=== PATIENT | male | born 1930 | race Caucasian/White ===

== ENCOUNTER 2018-06-23 22:34 | Inpatient (IN) | payer MEDICARE, MEDICAID ==
--- NOTE | 2018-06-23 23:07 | EDM.PDOC ---
ED HPI GENERAL MEDICAL PROBLEM - General Chief Complaint: Fever Stated Complaint: SICK Time Seen by Provider: 06/23/18 22:50 Source of Information: Reports: Patient, Longterm Records, RN Notes Reviewed - History of Present Illness INITIAL COMMENTS - FREE TEXT/NARRATIVE: pt comes from [place] with concerns for fever that started today, pt report some dry cough, denies any other associated sx or concerns. pt has bilateral heal ulcers and is on a course of cipro for ten days that ends today, pt report poor appetite and gen weakness. - Related Data Allergies Allergy/AdvReac Type Severity Reaction Status Date / Time No Known Allergies Allergy Verified 06/23/18 23:33 Home Meds: Home Meds glipiZIDE [Glipizide ER] 10 mg PO BID 03/20/14 [History] metFORMIN [Glucophage] 1,000 mg PO BID 03/20/14 [History] Simvastatin [Zocor] 40 mg PO BEDTIME 02/28/18 [History] Furosemide 60 mg PO DAILY 03/01/18 [History] Iron Polysaccharides Complex [Ferrex 150] 150 mg PO BID #60 cap 03/04/18 [Rx] Acetaminophen 650 mg PO Q4HR PRN 06/23/18 [History] Ascorbate Calcium [Vitamin C] 500 mg PO DAILY 06/23/18 [History] Bisacodyl [Dulcolax] 10 mg RECTAL DAILY PRN 06/23/18 [History] Carboxymethylcellulose Sodium [Refresh Tears] 30 ml EYEBOTH BID 06/23/18 [ History] Cyanocobalamin (Vitamin B-12) [Cyanocobalamin Injection] 1,000 mcg IJ ASDIRECTED 06/23/18 [History] Magnesium Hydroxide [Milk of Magnesia] 30 ml PO DAILY PRN 06/23/18 [History] Magnesium Oxide [Magnesium] 400 mg PO BID 06/23/18 [History] Multivitamin with Minerals [Multivitamins with Minerals] 1 each PO DAILY [History] Potassium Chloride [Klor-Con M20] 20 meq PO DAILY 06/23/18 [History] Sennosides/Docusate Sodium [Senna Plus Tablet] 1 tab PO BID 06/23/18 [History] Spironolactone [Aldactone] 25 mg PO DAILY 06/23/18 [History] Past Medical History HEENT History: Reports: Cataract Cardiovascular History: Reports: Heart Failure, High Cholesterol, Hypertension Other Cardiovascular History: had heartrate of 160 on admit to ER Respiratory History: Reports: SOB Gastrointestinal History: Reports: Colon Polyp Genitourinary History: Reports: None Musculoskeletal History: Reports: Osteoarthritis Neurological History: Reports: None Psychiatric History: Reports: None Endocrine/Metabolic History: Reports: Diabetes, Type II Hematologic History: Reports: B12 Deficiency Dermatologic History: Reports: None - Infectious Disease History Infectious Disease History: Reports: Chicken Pox, Measles - Past Surgical History GI Surgical History: Reports: Colonoscopy Social & Family History - Family History Family Medical History: Noncontributory - Caffeine Use Caffeine Use: Reports: Coffee ED ROS GENERAL - Review of Systems Review Of Systems: See Below Constitutional: Reports: Fever, Fatigue. Denies: Chills HEENT: Reports: No Symptoms Respiratory: Reports: Cough. Denies: Shortness of Breath, Wheezing, Sputum Cardiovascular: Reports: No Symptoms. Denies: Chest Pain GI/Abdominal: Reports: No Symptoms. Denies: Abdominal Pain, Diarrhea, Nausea, Vomiting : Reports: No Symptoms Musculoskeletal: Reports: No Symptoms Neurological: Reports: No Symptoms. Denies: Confusion ED EXAM, GENERAL - Physical Exam Exam: See Below Exam Limited By: No Limitations General Appearance: Alert Eye Exam: Bilateral Eye: Normal Inspection Nose: Normal Inspection, Normal Mucosa Throat/Mouth: Normal Inspection Head: Atraumatic, Normocephalic Respiratory/Chest: No Respiratory Distress Cardiovascular: Normal Peripheral Pulses GI/Abdominal: Normal Bowel Sounds, Soft Skin Exam: Other (pt has stage 2 pressure ulcers at his heals ) Course - Vital Signs Text/Narrative:: labs and CXR results were reviewed. pt has bilateral patchy infiltrates related to chronic CHF and possible pneumonitis. blood cultures were taken, will start pt on rocephin and zithromax. admit inpatient, monitor BS and watch for volume overloads . continue with current home meds including lasix and spironolactone. Last Recorded V/S: Last Vital Signs Temp 38.4 C H 06/23/18 22:35 Pulse 91 06/23/18 22:35 Resp 31 H 06/23/18 22:35 BP 102/57 L 06/23/18 22:35 Pulse Ox 94 L 06/23/18 22:35 - Orders/Labs/Meds Orders: Active Orders 24 hr Category Date Time Status Patient Status [ADT] Routine ADT 06/24/18 00:12 Ordered Blood Glucose Check, Bedside [RC] TIDMEALS Care 06/24/18 00:12 Ordered Oxygen Therapy Adult [Oxygen Therapy, ED] [RC] Care 06/23/18 22:34 Ordered ASDIRECTED Oxygen Therapy [RC] PRN Care 06/24/18 00:12 Ordered RT Aerosol Therapy [RC] ASDIRECTED Care 06/24/18 00:20 Ordered Up With Assistance [RC] ASDIRECTED Care 06/24/18 00:12 Ordered VTE/DVT Education [RC] Per Unit Routine Care 06/24/18 00:12 Ordered Vital Signs [RC] Q8H Care 06/24/18 00:12 Ordered Consistent Carbohydrate Diet [DIET] Diet 06/24/18 Breakfast Ordered Chest 1V Frontal [CR] Stat Exams 06/23/18 23:08 Ordered BASIC METABOLIC PANEL,BMP [CHEM] AM Lab 06/24/18 05:11 Ordered CBC W/O DIFF,HEMOGRAM [HEME] AM Lab 06/24/18 05:11 Ordered CULTURE BLOOD [BC] Urgent Lab 06/23/18 23:09 Ordered CULTURE BLOOD [BC] Urgent Lab 06/23/18 23:09 Ordered Acetaminophen [Tylenol] Med 06/24/18 00:12 Ordered 650 mg PO Q4H PRN Acetaminophen [Tylenol] Med 06/24/18 00:21 Ordered 650 mg PO Q4HR PRN Acetaminophen/HYDROcodone [Hanna 325-5 MG] Med 06/24/18 00:12 Ordered 1 tab PO Q4H PRN Albuterol/Ipratropium [DuoNeb 3.0-0.5 MG/3 ML] Med 06/24/18 00:12 Ordered 3 ml INH ONETIME PRN Azithromycin [Zithromax] 500 mg Med 06/24/18 00:30 Ordered Sodium Chloride 0.9% [Normal Saline] 250 ml IV Q24H Bisacodyl [Dulcolax] Med 06/24/18 00:21 Ordered 10 mg RECTAL DAILY PRN Docusate Sodium/Sennosides [Senna Plus] Med 06/24/18 09:00 Ordered 1 tab PO BID Enoxaparin [Lovenox] Med 06/24/18 00:15 Ordered 30 mg SUBCUT Q24H Furosemide [Lasix] Med 06/24/18 09:00 Ordered 60 mg PO DAILY Ondansetron [Zofran ODT] Med 06/24/18 00:12 Ordered 4 mg PO Q6H PRN Potassium Chloride [Klor-Con M20] Med 06/24/18 09:00 Ordered 20 meq PO DAILY Simvastatin [Zocor] Med 06/24/18 21:00 Ordered 40 mg PO BEDTIME Sodium Chloride 0.9% [Normal Saline] 1,000 ml Med 06/24/18 00:15 Ordered IV ASDIRECTED Spironolactone [Aldactone] Med 06/24/18 09:00 Ordered 25 mg PO DAILY Zolpidem [Ambien] Med 06/24/18 00:12 Ordered 5 mg PO BEDTIME PRN cefTRIAXone [Rocephin] 1 gm Med 06/24/18 00:30 Ordered Sodium Chloride 0.9% [Normal Saline] 50 ml IV Q24H glipiZIDE [Glucotrol XL] Med 06/24/18 09:00 Ordered 10 mg PO BID metFORMIN [Glucophage] Med 06/24/18 09:00 Ordered 1,000 mg PO BID Blood Culture x2 Reflex Set [OM.PC] Urgent Oth 06/23/18 23:09 Ordered Resuscitation Status Routine Resus Stat 06/24/18 00:12 Ordered Medication Orders Acetaminophen (Tylenol) 650 mg PO Q4H PRN PRN Reason: Pain (Mild 1-3)/fever Acetaminophen (Tylenol) 650 mg PO Q4HR PRN PRN Reason: Pain/Fever Hydrocodone Bitart/Acetaminophen (Hanna 325-5 Mg) 1 tab PO Q4H PRN PRN Reason: Pain (moderate 4-6) Albuterol/Ipratropium (Duoneb 3.0-0.5 Mg/3 Ml) 3 ml INH ONETIME PRN PRN Reason: Shortness Of Breath/wheezing Bisacodyl (Dulcolax) 10 mg RECTAL DAILY PRN PRN Reason: Constipation Enoxaparin Sodium (Lovenox) 30 mg SUBCUT Q24H NARAYAN Sodium Chloride (Normal Saline) 1,000 mls @ 100 mls/hr IV ASDIRECTED NARAYAN Azithromycin 500 mg/ Sodium (Chloride) 250 mls @ 250 mls/hr IV Q24H NARAYAN Ceftriaxone Sodium 1 gm/ (Sodium Chloride) 50 mls @ 200 mls/hr IV Q24H [facility] Ondansetron HCl (Zofran Odt) 4 mg PO Q6H PRN PRN Reason: nausea, able to take PO Zolpidem Tartrate (Ambien) 5 mg PO BEDTIME PRN PRN Reason: Sleep Labs: Laboratory Tests 06/23/18 06/23/18 06/23/18 Range/Units 23:20 23:20 23:37 WBC 8.5 (4.5-12.0) X10-3/uL RBC 3.49 L (4.30-5.75) x10(6)uL Hgb 8.9 L (13.5-17.8) g/dL Hct 27.1 L (30.0-51.3) % MCV 77.7 L (80-96) fL MCH 25.6 L (27.7-33.6) pg MCHC 32.9 (32.2-35.4) g/dL RDW 17.7 H (11.5-15.5) % Plt Count 133 (125-369) X10(3)uL MPV 8.8 (7.4-10.4) fL Neut % (Auto) 84.8 H (46-82) % Lymph % (Auto) 4.5 L (13-37) % Mason % (Auto) 8.6 (4-12) % Eos % (Auto) 0 L (1.0-5.0) % Baso % (Auto) 2 (0-2) % Neut # (Auto) 7.2 (1.6-8.3) # Lymph # (Auto) 0.4 L (0.6-5.0) # Mason # (Auto) 0.7 (0.0-1.3) # Eos # (Auto) 0.0 (0.0-0.8) # Baso # (Auto) 0.2 (0.0-0.2) # Sodium 136 (135-145) mmol/L Potassium 4.3 (3.5-5.3) mmol/L Chloride 98 L (100-110) mmol/L Carbon Dioxide 27 (21-32) mmol/L BUN 40 H D (7-18) mg/dL Creatinine 1.7 H (0.70-1.30) mg/dL Est Cr Clr Drug Dosing TNP Estimated GFR (MDRD) 38 L (>60) BUN/Creatinine Ratio 23.5 H (9-20) Glucose 264 H D (80-116) mg/dL Calcium 9.2 (8.6-10.2) mg/dL Total Bilirubin 0.7 (0.1-1.3) mg/dL AST 31 H D (5-25) IU/L ALT 25 D (12-36) U/L Alkaline Phosphatase 31 L (56-112) IU/L Total Protein 6.9 (6.0-8.0) g/dL Albumin 2.4 L (3.2-4.6) g/dL Globulin 4.5 g/dL Albumin/Globulin Ratio 0.5 Urine Color Yellow (YELLOW) Urine Appearance Clear (CLEAR) Urine pH 5.0 (5.0-6.5) Ur Specific [place] 1.010 (1.010-1.025) Urine Protein Negative (NEGATIVE) mg/dL Urine Glucose (UA) Normal (NORMAL) mg/dL Urine Ketones Negative (NEGATIVE) mg/dL Urine Occult Blood Negative (NEGATIVE) Urine Nitrite Negative (NEGATIVE) Urine Bilirubin Negative (NEGATIVE) Urine Urobilinogen Normal (NEGATIVE) mg/dL Ur Leukocyte Esterase Negative (NEGATIVE) Urine RBC 0-5 (0-5) Urine WBC 0-5 (0-5) Ur Squamous Epith Cells Occasional (NS,R,O) Urine Bacteria Few H (NS) Meds: Medications Generic Name Dose Route Start Last Admin Trade Name Freq PRN Reason Stop Dose Admin Acetaminophen 650 mg 06/24/18 00:12 Tylenol PO Q4H PRN Pain (Mild 1-3)/fever Acetaminophen 650 mg 06/24/18 00:21 Tylenol PO Q4HR PRN Pain/Fever Hydrocodone Bitart/Acetaminophen 1 tab 06/24/18 00:12 Hanna 325-5 Mg PO Q4H PRN Pain (moderate 4-6) Albuterol/Ipratropium 3 ml 06/24/18 00:12 Duoneb 3.0-0.5 Mg/3 Ml INH ONETIME PRN Shortness Of Breath/wheezing Bisacodyl 10 mg 06/24/18 00:21 Dulcolax RECTAL DAILY PRN Constipation Enoxaparin Sodium 30 mg 06/24/18 00:15 Lovenox SUBCUT Q24H NARAYAN Sodium Chloride 1,000 mls @ 100 mls/hr 06/24/18 00:15 Normal Saline IV ASDIRECTED [facility] Azithromycin 500 mg/ Sodium 250 mls @ 250 mls/hr 06/24/18 00:30 Chloride IV Q24H NARAYAN Ceftriaxone Sodium 1 gm/ 50 mls @ 200 mls/hr 06/24/18 00:30 Sodium Chloride IV Q24H NARAYAN Ondansetron HCl 4 mg 06/24/18 00:12 Zofran Odt PO Q6H PRN nausea, able to take PO Zolpidem Tartrate 5 mg 06/24/18 00:12 Ambien PO BEDTIME PRN Sleep Departure - Departure Time of Disposition: 00:25 Disposition: Admitted As Inpatient 66 Clinical Impression: Pneumonia - Discharge Information Referrals: PCP,None [Primary Care Provider] - Forms: ED Department Discharge - Problem List & Annotations (1) Pneumonia SNOMED Code(s): 437035197 Code(s): J18.9 - PNEUMONIA, UNSPECIFIED ORGANISM Status: Acute Current Visit: Yes Qualifiers: Pneumonia type: due to unspecified organism - My Orders Last 24 Hours: My Active Orders 06/23/18 22:34 Oxygen Therapy Adult [Oxygen Therapy, ED] [RC] ASDIRECTED 06/23/18 23:08 Chest 1V Frontal [CR] Stat 06/23/18 23:09 CULTURE BLOOD [BC] Urgent CULTURE BLOOD [BC] Urgent Blood Culture x2 Reflex Set [OM.PC] Urgent 06/24/18 00:12 Patient Status [ADT] Routine Blood Glucose Check, Bedside [RC] TIDMEALS Oxygen Therapy [RC] PRN Up With Assistance [RC] ASDIRECTED VTE/DVT Education [RC] Per Unit Routine Vital Signs [RC] Q8H Acetaminophen [Tylenol] 650 mg PO Q4H PRN Acetaminophen/HYDROcodone [Hanna 325-5 MG] 1 tab PO Q4H PRN Albuterol/Ipratropium [DuoNeb 3.0-0.5 MG/3 ML] 3 ml INH ONETIME PRN Ondansetron [Zofran ODT] 4 mg PO Q6H PRN Zolpidem [Ambien] 5 mg PO BEDTIME PRN Resuscitation Status Routine 06/24/18 00:15 Enoxaparin [Lovenox] 30 mg SUBCUT Q24H Sodium Chloride 0.9% [Normal Saline] 1,000 ml IV ASDIRECTED 06/24/18 00:20 RT Aerosol Therapy [RC] ASDIRECTED 06/24/18 00:21 Acetaminophen [Tylenol] 650 mg PO Q4HR PRN Bisacodyl [Dulcolax] 10 mg RECTAL DAILY PRN 06/24/18 00:30 Azithromycin [Zithromax] 500 mg Sodium Chloride 0.9% [Normal Saline] 250 ml IV Q24H cefTRIAXone [Rocephin] 1 gm Sodium Chloride 0.9% [Normal Saline] 50 ml IV Q24H 06/24/18 05:11 BASIC METABOLIC PANEL,BMP [CHEM] AM CBC W/O DIFF,HEMOGRAM [HEME] AM 06/24/18 09:00 Docusate Sodium/Sennosides [Senna Plus] 1 tab PO BID Furosemide [Lasix] 60 mg PO DAILY Potassium Chloride [Klor-Con M20] 20 meq PO DAILY Spironolactone [Aldactone] 25 mg PO DAILY glipiZIDE [Glucotrol XL] 10 mg PO BID metFORMIN [Glucophage] 1,000 mg PO BID 06/24/18 21:00 Simvastatin [Zocor] 40 mg PO BEDTIME 06/24/18 Breakfast Consistent Carbohydrate Diet [DIET] - Assessment/Plan Last 24 Hours: My Active Orders 06/23/18 22:34 Oxygen Therapy Adult [Oxygen Therapy, ED] [RC] ASDIRECTED 06/23/18 23:08 Chest 1V Frontal [CR] Stat 06/23/18 23:09 CULTURE BLOOD [BC] Urgent CULTURE BLOOD [BC] Urgent Blood Culture x2 Reflex Set [OM.PC] Urgent 06/24/18 00:12 Patient Status [ADT] Routine Blood Glucose Check, Bedside [RC] TIDMEALS Oxygen Therapy [RC] PRN Up With Assistance [RC] ASDIRECTED VTE/DVT Education [RC] Per Unit Routine Vital Signs [RC] Q8H Acetaminophen [Tylenol] 650 mg PO Q4H PRN Acetaminophen/HYDROcodone [Hanna 325-5 MG] 1 tab PO Q4H PRN Albuterol/Ipratropium [DuoNeb 3.0-0.5 MG/3 ML] 3 ml INH ONETIME PRN Ondansetron [Zofran ODT] 4 mg PO Q6H PRN Zolpidem [Ambien] 5 mg PO BEDTIME PRN Resuscitation Status Routine 06/24/18 00:15 Enoxaparin [Lovenox] 30 mg SUBCUT Q24H Sodium Chloride 0.9% [Normal Saline] 1,000 ml IV ASDIRECTED 06/24/18 00:20 RT Aerosol Therapy [RC] ASDIRECTED 06/24/18 00:21 Acetaminophen [Tylenol] 650 mg PO Q4HR PRN Bisacodyl [Dulcolax] 10 mg RECTAL DAILY PRN 06/24/18 00:30 Azithromycin [Zithromax] 500 mg Sodium Chloride 0.9% [Normal Saline] 250 ml IV Q24H cefTRIAXone [Rocephin] 1 gm Sodium Chloride 0.9% [Normal Saline] 50 ml IV Q24H 06/24/18 05:11 BASIC METABOLIC PANEL,BMP [CHEM] AM CBC W/O DIFF,HEMOGRAM [HEME] AM 06/24/18 09:00 Docusate Sodium/Sennosides [Senna Plus] 1 tab PO BID Furosemide [Lasix] 60 mg PO DAILY Potassium Chloride [Klor-Con M20] 20 meq PO DAILY Spironolactone [Aldactone] 25 mg PO DAILY glipiZIDE [Glucotrol XL] 10 mg PO BID metFORMIN [Glucophage] 1,000 mg PO BID 06/24/18 21:00 Simvastatin [Zocor] 40 mg PO BEDTIME 06/24/18 Breakfast Consistent Carbohydrate Diet [DIET]
[2018-06-24] MEDS ORDERED: Ondansetron 4 MG Tab.DIS PO PRN (00:12)
[2018-06-24] MEDS ORDERED: Zolpidem 5 MG Tab PO PRN (00:12)
[2018-06-24] MEDS ORDERED: Albuterol/Ipratropium 3.0-0.5 MG/3 ML Neb Soln INH PRN (00:12)
[2018-06-24] MEDS ORDERED: Acetaminophen/HYDROcodone 325-5 MG Tab PO PRN (00:12)
[2018-06-24] MEDS ORDERED: Acetaminophen 325 MG Tab PO PRN (00:12)
[2018-06-24] MEDS ORDERED: Enoxaparin 30 MG/0.3 ML Syringe SUBCUT SCH (00:15)
[2018-06-24] MEDS ORDERED: Bisacodyl 10 MG Supp RECTAL PRN (00:21)
[2018-06-24] MEDS ORDERED: cefTRIAXone 1 GM in Sodium Chloride 0.9% 50 ML IV SCH (00:30)
[2018-06-24] MEDS: Sodium Chloride 0.9% 1,000 ML IV SCH ×3 (00:38→21:49)
[2018-06-24] MEDS ORDERED: Sodium Chloride 0.9% 10 ML Syringe FLUSH PRN (00:45)
[2018-06-24] MEDS: Azithromycin 500 MG in Sodium Chloride 0.9% 250 ML IV SCH ×2 (01:00→23:57)
[2018-06-24] MEDS: Acetaminophen 325 MG Tab PO PRN ×2 (05:59→19:45)
[2018-06-24] MEDS: Piperacillin/Tazobactam 3.375 GM in Sodium Chloride 0.9% 50 ML IV SCH ×3 (08:33→20:16)
[2018-06-24] MEDS: Furosemide 20 MG Tab PO SCH (09:29)
[2018-06-24] MEDS: Spironolactone 25 MG Tab PO SCH (09:29)
[2018-06-24] MEDS: metFORMIN 1,000 MG Tab PO SCH ×2 (09:29→17:34)
[2018-06-24] MEDS: glipiZIDE 10 MG Tab.ER PO SCH ×2 (09:29→17:35)
[2018-06-24] MEDS: metroNIDAZOLE/Normal Saline 500 MG in Premix Bag 1 BAG IV SCH ×2 (10:49→17:34)
--- NOTE | 2018-06-24 12:28 | HP ---
ADMISSION DATE: 06/24/2018 HISTORY OF PRESENT ILLNESS: Mr. Crowder was an 88-year-old man from [facility] in [place] with a history of CHF, type 2 diabetes, chronic anemia, hyperlipidemia and heel ulcers. According to the patient, he has had the flu for the past couple of days with a cough, fever and chills. He was sent in from [facility] to the emergency room yesterday evening where he was evaluated and found to have infected draining right heel ulcer, left heel eschar and lung infiltrate consistent with pneumonia. The patient is a fair historian and states he has had the flu, but no nausea or vomiting or diarrhea. He also denies chest pain or dyspnea. PAST MEDICAL HISTORY: Significant for type 2 diabetes that has been fairly well controlled as an outpatient. He has chronic anemia, depression, hyperlipidemia, and the heel ulcers. He has history of colon polyps with colon polypectomies, bilateral cataract surgeries. He has had chronic congestive heart failure. He has resided at [facility] for generalized weakness, poor mobility and general decline in health. Recent echocardiogram done in March of this year showed normal ventricular function with ejection fraction of 60% and mild valvular heart disease. MEDICATIONS: 1. Glipizide XL 10 mg daily. 2. Potassium 10 mEq daily. 3. Simvastatin 40 mg daily. 4. Furosemide 60 mg daily. 5. Metformin 1000 mg b.i.d. 6. Aldactone 25 mg daily. 7. Senna Plus 1 b.i.d. 8. Dulcolax suppository p.r.n. 9. Tylenol p.r.n. 10.Multiple vitamin daily. 11.Mag-Ox one b.i.d. 12.Milk of Mag p.r.n. 13.Iron sulfate 150 mg b.i.d. 14.Vitamin B12 1000 mg IM monthly. 15.Artificial Tears p.r.n. 16.Vitamin C daily. ALLERGIES: None known. HABITS: Nonsmoker and nondrinker. FAMILY AND SOCIAL HISTORY: The patient is . He lives at [facility]. He has 3 sons and 1 daughter. 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 REVIEW OF SYSTEMS: GENERAL: No seizure, syncope, or recent significant weight change. SKIN: Positive for the heel ulcers. No other rash. HEENT: No recent changes in hearing or vision. No sore throat or URI. He does have a cough that is not significantly productive. No chest pain or palpitations. No abdominal pain, nausea, or diarrhea. No swelling. No mood instability or temperature intolerance. PHYSICAL EXAMINATION: GENERAL: He is alert and comfortable. He is a fair historian. VITAL SIGNS: Blood pressure 123/63, pulse 114, temp 103.4, O2 saturation 80% on 4 liters nasal cannula oxygen. SKIN: Anicteric, warm, dry without rash. He does have a 3 cm black eschar on left heel and draining purulent foul-smelling ulcer, right heel. HEENT: Showed TMs to be clear. Pupils are equal and reactive with evidence of previous cataract surgery. Oropharynx is clear. Mouth is dry. LUNGS: Clear in the upper lung mehta. He has dense rales at left greater than right bases. HEART: Regular. No murmur or gallop heard. ABDOMEN: Normal bowel sounds, soft and nontender. EXTREMITIES: Show trace edema at the ankles with heel ulcers as mentioned. LABORATORY DATA: Chest x-ray shows bilateral infiltrate consistent with pneumonia. Heart size appears normal. White count 7200, hemoglobin 9.1, MCV 78. Electrolytes normal. BUN 40, creatinine 1.6, glucose 197, calcium 9.2. Urinalysis, negative. ASSESSMENT: 1. An 88-year-old man, now admitted with febrile illness and bilateral pneumonia occurring in a healthcare setting at [facility]. 2. Bilateral pressure ulcers, heels, right foul-draining and infected left thick eschar. 3. Type 2 diabetes. 4. History of mild chronic congestive heart failure. 5. Mild renal insufficiency. PLAN: He has been started on IV antibiotics. He is admitted to the hospital acute care with IV fluid and antibiotic support for potential sepsis. We will have a consult from Dr. Munroe regarding his heel ulcers, treat his diabetes as indicated and provide palliative care measures for his underlying osteoarthritis, poor mobility, mild cognitive deficits and general infirmity of aging. /[id number] RO/ARASELIL
[2018-06-24] MEDS: Potassium Chloride 20 MEQ Tab.ER PO SCH (17:35)
[2018-06-24] MEDS: Enoxaparin 30 MG/0.3 ML Syringe SUBCUT SCH (20:55)
[2018-06-24] MEDS ORDERED: Simvastatin 40 MG Tab PO SCH (21:00)
[2018-06-25] MEDS ORDERED: cefTRIAXone 1 GM Vial IVPUSH SCH (00:30)
[2018-06-25] MEDS: metroNIDAZOLE/Normal Saline 500 MG in Premix Bag 1 BAG IV SCH ×3 (01:19→17:50)
[2018-06-25] MEDS: Piperacillin/Tazobactam 3.375 GM in Sodium Chloride 0.9% 50 ML IV SCH ×4 (02:38→20:21)
[2018-06-25] MEDS: Sodium Chloride 0.9% 1,000 ML IV SCH ×2 (07:50→16:54)
--- NOTE | 2018-06-25 08:34 | CR ---
INDICATION: Fever. CHEST ONE VIEW: Portable AP upright view of the chest 06/23/18 was compared with 02/28/18 and revealed the heart to appear prominent. The aorta tortuous with calcification in the arch. Overlying EKG leads are noted. Degenerative changes noted at the shoulder joints especially the right glenohumeral joint. There appears to be some infiltrate in the right mid lung field and left lung base similar to previous examination. This may be on the basis of fibrosis or recurrent or chronic pneumonia, but should be correlated clinically. No definite evidence of CHF is seen. MTDD
[2018-06-25] MEDS: Spironolactone 25 MG Tab PO SCH (09:18)
[2018-06-25] MEDS: Furosemide 20 MG Tab PO SCH (09:18)
[2018-06-25] MEDS: metFORMIN 1,000 MG Tab PO SCH ×2 (09:20→17:51)
[2018-06-25] MEDS: glipiZIDE 10 MG Tab.ER PO SCH (09:21)
[2018-06-25] MEDS: Potassium Chloride 20 MEQ Tab.ER PO SCH (17:51)
[2018-06-25] MEDS: glipiZIDE 5 MG Tab.ER PO SCH (17:51)
[2018-06-25] MEDS: Enoxaparin 30 MG/0.3 ML Syringe SUBCUT SCH (20:25)
[2018-06-26] MEDS: Azithromycin 500 MG in Sodium Chloride 0.9% 250 ML IV SCH (00:50)
[2018-06-26] MEDS: metroNIDAZOLE/Normal Saline 500 MG in Premix Bag 1 BAG IV SCH ×3 (02:05→18:40)
[2018-06-26] MEDS: Piperacillin/Tazobactam 3.375 GM in Sodium Chloride 0.9% 50 ML IV SCH ×2 (03:07→08:13)
[2018-06-26] MEDS: glipiZIDE 5 MG Tab.ER PO SCH ×2 (08:00→18:05)
[2018-06-26] MEDS: metFORMIN 1,000 MG Tab PO SCH ×2 (08:00→18:04)
[2018-06-26] MEDS ORDERED: Amoxicillin/Clavulanate K 500-125 MG Tab PO SCH (08:00)
[2018-06-26] MEDS: Spironolactone 25 MG Tab PO SCH (08:02)
--- NOTE | 2018-06-26 08:37 | PN ---
DATE SEEN: 06/25/2018 HISTORY: Tl is an 88-year-old resident of [facility] in [place], who was admitted with fever, chills, sweats, and pneumonia. In addition to this, he has had chronic heel ulcers, for which the right one has been draining foul-smelling discharge. On admission, he was febrile, his temperature went up to 103. White count 8,500, hemoglobin 8.9, creatinine 1.7. He was started on IV antibiotics and has continued on Zosyn, metronidazole, and azithromycin. Chest x-ray showed bilateral extensive infiltrates. PHYSICAL EXAMINATION: GENERAL: He is examined in the chair this morning. He finished eating breakfast and ate a full breakfast. VITAL SIGNS: Blood pressure 96/56, pulse 80 and regular, O2 saturation 94% on 3 L nasal cannula, temperature 98.6. SKIN: Shows no rash. He has the heel ulcers as described yesterday. Mouth is dry. LUNGS: Have rales at the left greater than right bases with scattered rhonchi. HEART: Regular without murmur or gallop. ABDOMEN: Normal bowel sounds. Soft and nontender. EXTREMITIES: Show trace edema at the ankles. LABORATORY: This morning, white count 7100, hemoglobin 8.4, MCV 78. BUN 38, creatinine 1.7. Glucose 71. Albumin 2.3. Urinalysis negative. ASSESSMENT: 1. Bilateral pneumonia. 2. Pressure ulcers, heels. 3. Type 2 diabetes. 4. Chronic congestive heart failure. 5. Osteoarthritis with poor mobility. PLAN: We will continue his IV antibiotics today and respiratory nebulizer treatments. Dr. Munroe has been consulted regarding his heel ulcers. I anticipate at least another 48 hours of acute hospital stay for his pneumonia. We will continue to provide palliative care measures for his underlying infirmity of aging, osteoarthritis, poor mobility, etc. /[id number] VIRI/PARI
[2018-06-26] MEDS: Furosemide 20 MG Tab PO SCH (09:11)
[2018-06-26] MEDS: Amoxicillin/Clavulanate K 875-125 MG Tab PO SCH ×2 (09:11→20:36)
--- NOTE | 2018-06-26 09:25 | CONS ---
DATE OF CONSULTATION: 06/25/2018 HISTORY OF PRESENT ILLNESS: This 88-year-old gentleman is seen at the request of Dr. Waller. He is currently hospitalized for pneumonia. He is a resident of [facility] in [place] for the last few months. He was admitted there after he fell at home and was lying on the ground and developed bilateral heel pressure ulcers. I have been following him in the clinic for the last several months for this. His right one was a stage 2 to 3 ulcer, which has mostly healed, but does have a remaining central area of granulation tissue the last time I saw him. His left one was more severe and is at least a stage 3 ulcer. I recently debrided this down into the subcutaneous tissue. He has never had any infection. These have been slow to heal. He is nonambulatory, but does bear occasional weight when moving. He requires at least two nurses to assist with lifting. The patient is currently hospitalized for pneumonia, and I was asked to see him for followup of these ulcers since it has been a couple of weeks since I last saw him in the clinic. PHYSICAL EXAMINATION: Exam reveals a pleasant gentleman in no acute distress. His vitals are reviewed and within normal limits. He is afebrile. His dressings are removed. The right heel ulcer continues to heal slowly with a central 1 cm area of granulation tissue that has not yet reepithelialized. There is no infection present. His left heel continues to be larger, at least, 3 cm in diameter. Moistened dressings have been placed, so it is difficult for me to tell if there is any debriding that can be done, since there is some slight foul smell from the tissue. There is no cellulitis. This does not look changed from the last time I saw him in clinic. ASSESSMENT: Bilateral heel ulcers. PLAN: I will have the dressing changed back to dry Telfa with Kerlix roll and keep pressure off them. I will follow up with him later this week to examine them again and see if any further debriding needs to be done. /[id number] DIANE/PARI
--- NOTE | 2018-06-26 10:36 | PN ---
DATE SEEN: 06/26/2018 HISTORY OF PRESENT ILLNESS: Tl is an 88-year-old man from [facility] in [place] with a history of type 2 diabetes, CHF and chronic pressure ulcers of the heels. He came in with fever, chills, weakness, and was found to have pneumonia. He developed fever up to 103+. He has been treated with Zosyn, metronidazole, azithromycin IV. He has been afebrile now for greater than 48 hours and he is much more alert and cognitively intact. Dr. Munroe has consulted on him regarding his heels. He is still coughing, minimally productively. PHYSICAL EXAMINATION: GENERAL: He is awake, alert, and a good historian. VITAL SIGNS: Blood pressure 128/64, pulse 72, O2 saturation 95% on 3 L nasal cannula, temperature 97.9, weight 237 pounds 2 days ago, down from 254 on admission. SKIN: Shows no rash. He has large irregular moist ulcers 3 x 5 cm left heel and 3 x 4 cm right heel. LUNGS: Have rales at the lower 1/3 on the right and the base on the left with occasional expiratory wheeze. HEART: Regular without murmur or gallop heard. ABDOMEN: Normal bowel sounds. Soft and nontender. ASSESSMENT: 1. Pneumonia. 2. Bilateral heel pressure ulcers. 3. Congestive heart failure. 4. Chronic kidney disease. 5. Chronic anemia with low MCV. PLAN: We will repeat his chest x-ray today. We will continue topical dressing changes and debridement if necessary by Dr. Munroe. Laboratory yesterday showed hemoglobin of 8.4, MCV 78, BUN 38, creatinine 1.7 with Accu-Cheks yesterday down to 62, this morning 120. I anticipate approximately another 48 hours of acute hospital stay followed by plans for return to the long-term in [place] once stabilized. We will continue to provide palliative care measures for his underlying poor mobility, dyspnea, CHF, and general infirmities of aging. /[id number] VIRI/PARI
[2018-06-26] MEDS: Sodium Chloride 0.9% 1,000 ML IV SCH (10:49)
--- NOTE | 2018-06-26 11:47 | CR ---
INDICATION: Pneumonia. CHEST: AP and two lateral upright views of the chest were obtained 06/26/18 and compared with 06/23/18 and 02/28/18. A moderately large fixed hiatal hernia is noted. The heart did not appear grossly enlarged. However, the upper lung field pulmonary vasculature appears prominent, raising question of CHF with prominent interstitial markings, raising question of interstitial lung edema. Also at the left lung base, there appears to be infiltrate, which may be on the basis of pneumonia. The aorta is tortuous with calcification in the arch and descending portion. Bony structures appear to be grossly intact, although somewhat demineralized, raising question of osteomalacia or osteoporosis. IMPRESSION: 1. Probable ASHD with CHF and possible minimal interstitial lung edema. 2. Probable pneumonia at the left lung base. 3. Suggestion of demineralization. 4. Large fixed hiatal hernia. MTDD
[2018-06-26] MEDS: Potassium Chloride 20 MEQ Tab.ER PO SCH (18:06)
[2018-06-26] MEDS ORDERED: metroNIDAZOLE 500 MG Tab ONE (18:37)
[2018-06-26] MEDS: Enoxaparin 30 MG/0.3 ML Syringe SUBCUT SCH (20:36)
[2018-06-26] MEDS ORDERED: metroNIDAZOLE 500 MG Tab PO SCH (22:00)
[2018-06-27] MEDS: Azithromycin 500 MG in Sodium Chloride 0.9% 250 ML IV SCH (00:19)
[2018-06-27] MEDS: Sodium Chloride 0.9% 1,000 ML IV SCH (00:23)
[2018-06-27] MEDS ORDERED: metroNIDAZOLE 500 MG Tab PO SCH (06:00)
[2018-06-27] MEDS: glipiZIDE 5 MG Tab.ER PO SCH (07:56)
[2018-06-27] MEDS: metFORMIN 1,000 MG Tab PO SCH (07:56)
[2018-06-27] MEDS: Spironolactone 25 MG Tab PO SCH (08:10)
[2018-06-27] MEDS: Amoxicillin/Clavulanate K 875-125 MG Tab PO SCH (08:10)
[2018-06-27] MEDS ORDERED: Furosemide 40 MG Tab PO SCH (09:00)
[2018-06-27 11:18] VITALS: BP 100/55
--- NOTE | 2018-06-27 11:34 | DISCH ---
DISCHARGE DATE: 06/27/2018 PRIMARY FINAL DIAGNOSIS: Bilateral pneumonia. OTHER DIAGNOSES: 1. Bilateral severe pressure ulcers, heels. 2. Type 2 diabetes. 3. Chronic obstructive pulmonary disease. 4. Osteoarthritis with poor mobility due to arthritis, heel pain, and lower extremity weakness. OPERATIONS: None. COMPLICATIONS: None. SUMMARY: Tl is an 88-year-old resident of [facility], who was admitted on 06/23/2018 with cough, dyspnea, weakness and high fever. He was found to have bilateral pneumonia on chest x-ray. His temperature spiked to 103 degrees. He was treated with IV Zosyn, azithromycin, and IV metronidazole. Aerobic blood cultures remained negative, but both blood cultures grew an anaerobic organism. His fever defervesced. He steadily improved. His breathing improved and he was able get off oxygen while sitting still. By 06/27/2018, he was strong enough for discharge. He is return to [facility] in [place] to continue his 2 L of nasal cannula oxygen p.r.n. as before. He will have follow up. He had consult from Dr. Munroe regarding his heel ulcers while hospitalized and will have follow up with Dr. Munroe in his office in 1 week. MEDICATIONS ON DISCHARGE: 1. Simvastatin 40 mg daily. 2. Multiple vitamin 1 daily. 3. Magnesium oxide 400 mg b.i.d. 4. Metronidazole 500 mg t.i.d. x1 week. 5. Milk of magnesia p.r.n. 6. Iron sulfate 150 mg b.i.d. 7. Glipizide 10 mg daily. 8. Furosemide 40 mg daily. 9. Vitamin B12 1000 mcg IM monthly. 10.Artificial Tears p.r.n. 11.Vitamin C 500 mg daily. 12.Augmentin 875 mg one b.i.d. x1 week. 13.Aldactone 25 mg daily. 14.Senna S1 b.i.d. 15.Potassium chloride 20 mEq daily. 16.Metformin 1000 mg b.i.d. 17.Dulcolax suppository p.r.n. 18.Tylenol p.r.n. He is to have regular followup with his doctor on a p.r.n. basis and continue penitentiary cares at [facility]. /[id number] VIRI/PARI
[2018-06-28 08:14] LABS: IRON BIND.CAP.(TIBC) 158 ug/dL (250-450); IRON SATURATION 11 % (15-55); IRON, SERUM 17 ug/dL (38-169); UIBC 141 ug/dL (111-343)
== END 2018-06-27 11:55 | DRG 190 ==
LOC: FB.ED 22:34 → FB.MS 06-24 00:24
PROVIDERS: ADMIT Family Medicine; ATTEND Family Medicine
DX: J44.0 Chronic obstructive pulmonary disease with (acute) lower respiratory infection (principal); J18.9 Pneumonia, unspecified organism; L89.623 Pressure ulcer of left heel, stage 3; I13.0 Hypertensive heart and chronic kidney disease with heart failure and stage 1 through stage 4 chronic kidney disease, or unspecified chronic kidney disease; I38 Endocarditis, valve unspecified; I50.9 Heart failure, unspecified; N18.9 Chronic kidney disease, unspecified; E11.22 Type 2 diabetes mellitus with diabetic chronic kidney disease; E11.621 Type 2 diabetes mellitus with foot ulcer; R50.9 Fever, unspecified; L89.612 Pressure ulcer of right heel, stage 2; Z79.84 Long term (current) use of oral hypoglycemic drugs; M19.90 Unspecified osteoarthritis, unspecified site; F32.9 Major depressive disorder, single episode, unspecified; E78.5 Hyperlipidemia, unspecified; E53.8 Deficiency of other specified B group vitamins; D64.89 Other specified anemias; G31.84 Mild cognitive impairment of uncertain or unknown etiology
CPT/HCPCS: 36415; 71045; 71046; 80048; 80053; 80069; 81001; 82607; 82962; 83540; 83550; 83605; 83880; 84443; 85025; 85027; 85045; 87040; 87804; 87804-59; 96365; 96372; 96375; 99284; 99285-25; A9270-GY; J0456; J0696; J1650; J2543; J3490; J7030; J7050

== ENCOUNTER 2018-06-28 17:13 | Emergency (ER) | payer MEDICARE, MEDICAID ==
--- NOTE | 2018-06-28 17:52 | EDM.PDOC ---
ED HPI GENERAL MEDICAL PROBLEM - General Stated Complaint: LOW BP RAPID HEART BEAT Time Seen by Provider: 06/28/18 17:13 Source of Information: Reports: Patient, EMS History Limitations: Reports: Altered Mental Status - History of Present Illness INITIAL COMMENTS - FREE TEXT/NARRATIVE: 88 y.o.w.m with multiple med issues, came by EMS to the ED due to palpitations with a rate of 170 and a SBP in the 80s. As the pt arrived here in the ED, Pt was in NSR with a rate of 92 BP 11/50 Pulse ox 94% on 2 liters O2 (pt's baseline) Temp 99.4, No CP, pt feels in hsi usual state of heals. No family is present. Onset Date: 06/28/18 Onset Time: 14:00 Duration: Hour(s):, Intermittent Location: Reports: Chest Quality: Reports: Other Severity: Mild Improves with: Reports: None Worsens with: Reports: None Associated Symptoms: Reports: No Other Symptoms - Related Data Allergies Allergy/AdvReac Type Severity Reaction Status Date / Time No Known Allergies Allergy Verified 06/23/18 23:33 Home Meds: Home Meds metFORMIN [Glucophage] 1,000 mg PO BIDMEALS 03/20/14 [History] Simvastatin [Zocor] 40 mg PO BEDTIME 02/28/18 [History] Iron Polysaccharides Complex [Ferrex 150] 150 mg PO BID #60 cap 03/04/18 [Rx] Acetaminophen 650 mg PO Q4HR PRN 06/23/18 [History] Ascorbate Calcium [Vitamin C] 500 mg PO WITHDINNER 06/23/18 [History] Bisacodyl [Dulcolax] 10 mg RECTAL DAILY PRN 06/23/18 [History] Carboxymethylcellulose Sodium [Refresh Tears] 1 ml EYEBOTH BIDMEALS 06/23/18 [ History] Cyanocobalamin (Vitamin B-12) [Cyanocobalamin Injection] 1,000 mcg IJ Q30D 06/23 [History] Magnesium Hydroxide [Milk of Magnesia] 30 ml PO DAILY PRN 06/23/18 [History] Magnesium Oxide [Magnesium] 400 mg PO BIDMEALS 06/23/18 [History] Multivitamin with Minerals [Multivitamins with Minerals] 1 each PO DAILY [History] Potassium Chloride [Klor-Con M20] 20 meq PO WITHDINNER 06/23/18 [History] Sennosides/Docusate Sodium [Senna Plus Tablet] 1 tab PO BIDMEALS 06/23/18 [ History] Spironolactone [Aldactone] 25 mg PO DAILY 06/23/18 [History] Amoxicillin/Clavulanate K [Augmentin 875-125 MG] 1 tab PO BID #14 tablet [Rx] Furosemide 40 mg PO DAILY #0 06/27/18 [Rx] glipiZIDE [Glipizide ER] 10 mg PO DAILY #0 06/27/18 [Rx] metroNIDAZOLE [Flagyl] 500 mg PO Q8H #21 tablet 06/27/18 [Rx] Past Medical History HEENT History: Reports: Cataract Cardiovascular History: Reports: Heart Failure, High Cholesterol, Hypertension Other Cardiovascular History: had heartrate of 160 on admit to ER Respiratory History: Reports: SOB, Other (See Below) Other Respiratory History: wears O2 at 2L NC all the time Gastrointestinal History: Reports: Colon Polyp Genitourinary History: Reports: None Musculoskeletal History: Reports: Arthritis, Osteoarthritis Neurological History: Reports: None Psychiatric History: Reports: None Endocrine/Metabolic History: Reports: Diabetes, Type II Hematologic History: Reports: Anemia, B12 Deficiency, Other (See Below) Other Hematologic History: takes iron Dermatologic History: Reports: Decubitus Ulcer, Other (See Below) Other Dermatologic History: patience heels - Infectious Disease History Infectious Disease History: Reports: Chicken Pox, Measles, Shingles - Past Surgical History HEENT Surgical History: Reports: Cataract Surgery, Tonsillectomy Cardiovascular Surgical History: Reports: None Respiratory Surgical History: Reports: None GI Surgical History: Reports: Colonoscopy Male Surgical History: Reports: None Endocrine Surgical History: Reports: None Neurological Surgical History: Reports: None Musculoskeletal Surgical History: Reports: Other (See Below) Other Musculoskeletal Surgeries/Procedures:: hand surgery on right hand Dermatological Surgical History: Reports: None Social & Family History - Family History Family Medical History: Noncontributory - Caffeine Use Caffeine Use: Reports: Coffee ED ROS GENERAL - Review of Systems Review Of Systems: Unable To Obtain ED EXAM, GENERAL - Physical Exam Exam: See Below Exam Limited By: Altered Mental Status General Appearance: Alert, WD/WN, No Apparent Distress Eye Exam: Bilateral Eye: Normal Inspection Ears: Normal External Exam, Normal Canal Ear Exam: Bilateral Ear: Auricle Normal Nose: Normal Inspection, Normal Mucosa, No Blood Throat/Mouth: Normal Inspection, Normal Lips, Normal Voice, No Airway Compromise Head: Atraumatic, Normocephalic Neck: Normal Inspection, Supple, Non-Tender, Full Range of Motion Respiratory/Chest: No Respiratory Distress, Rhonchi Cardiovascular: Normal Peripheral Pulses, Regular Rate, Rhythm, No Edema, No Gallop Peripheral Pulses: 2+: Brachial (L) GI/Abdominal: Normal Bowel Sounds, Soft, Non-Tender (Male) Exam: Deferred Rectal (Males) Exam: Deferred Back Exam: Normal Inspection Extremities: Normal Inspection, Normal Range of Motion Neurological: Alert, Oriented, CN II-XII Intact, Normal Cognition Psychiatric: Normal Affect, Normal Mood Skin Exam: Warm, Dry, Intact, Normal Color Lymphatic: No Adenopathy EKG INTERPRETATION EKG Date: 06/28/18 Time: 17:20 Rhythm: NSR Rate (Beats/Min): 92 [place]: Normal P-Wave: Present (OH prolonged) QRS: Normal ST-T: Normal QT: Normal Comparison: NA - No Prior EKG Course - Vital Signs Text/Narrative:: 88 y.o.w.m with multiple med issues, came by EMS to the ED due to palpitations with a rate of 170 and a SBP in the 80s. As the pt arrived here in the ED, Pt was in NSR with a rate of 92 BP 11/50 Pulse ox 94% on 2 liters O2 (pt's baseline) Temp 99.4, No CP, pt feels in his usual state of heals. No family is present. PE: WNWD W M in NAD Imaging; CDXR: NAD Labs: CBC: 10.7 HGB 27.7 HCT 8.9 Mg 1.5 BUN 28 Cr. 1.5 GFR 44 Impression: converted to NSR, low magnesium. 1st degree AV block Thx: Mg Reexam: Pt was doing fine in the ED Plan: D/C with instructions Last Recorded V/S: Last Vital Signs Temp 37.4 C 06/28/18 19:00 Pulse 93 06/28/18 19:00 Resp 22 H 06/28/18 19:00 BP 124/65 06/28/18 19:00 Pulse Ox 92 L 06/28/18 19:00 - Orders/Labs/Meds Labs: Laboratory Tests 06/28/18 06/28/18 06/28/18 Range/Units 17:45 17:45 17:45 WBC 10.4 (4.5-12.0) X10-3/uL RBC 3.51 L (4.30-5.75) x10(6)uL Hgb 8.9 L (13.5-17.8) g/dL Hct 27.7 L (30.0-51.3) % MCV 79.0 L (80-96) fL MCH 25.3 L (27.7-33.6) pg MCHC 32.0 L (32.2-35.4) g/dL RDW 18.8 H (11.5-15.5) % Plt Count 206 (125-369) X10(3)uL MPV 8.3 (7.4-10.4) fL Add Manual Diff Yes Neutrophils % (Manual) 85 H (46-82) % Lymphocytes % (Manual) 9 L (13-37) % Monocytes % (Manual) 5 (4-12) % Eosinophils % (Manual) 1 (0-5) % Anisocytosis Few Sodium 144 (135-145) mmol/L Potassium 4.0 (3.5-5.3) mmol/L Chloride 106 (100-110) mmol/L Carbon Dioxide 25 (21-32) mmol/L BUN 28 H (7-18) mg/dL Creatinine 1.5 H (0.70-1.30) mg/dL Est Cr Clr Drug Dosing 37.36 mL/min Estimated GFR (MDRD) 44 L (>60) BUN/Creatinine Ratio 18.7 (9-20) Glucose 219 H D (80-116) mg/dL Calcium 9.4 (8.6-10.2) mg/dL Magnesium 1.6 L (1.8-2.5) mg/dL Troponin I < 0.017 L (<0.017-0.056) ng/mL TSH, Ultra Sensitive (0.36-3.74) IU/mL 06/28/18 Range/Units 17:45 WBC (4.5-12.0) X10-3/uL RBC (4.30-5.75) x10(6)uL Hgb (13.5-17.8) g/dL Hct (30.0-51.3) % MCV (80-96) fL MCH (27.7-33.6) pg MCHC (32.2-35.4) g/dL RDW (11.5-15.5) % Plt Count (125-369) X10(3)uL MPV (7.4-10.4) fL Add Manual Diff Neutrophils % (Manual) (46-82) % Lymphocytes % (Manual) (13-37) % Monocytes % (Manual) (4-12) % Eosinophils % (Manual) (0-5) % Anisocytosis Sodium (135-145) mmol/L Potassium (3.5-5.3) mmol/L Chloride (100-110) mmol/L Carbon Dioxide (21-32) mmol/L BUN (7-18) mg/dL Creatinine (0.70-1.30) mg/dL Est Cr Clr Drug Dosing mL/min Estimated GFR (MDRD) (>60) BUN/Creatinine Ratio (9-20) Glucose (80-116) mg/dL Calcium (8.6-10.2) mg/dL Magnesium (1.8-2.5) mg/dL Troponin I (<0.017-0.056) ng/mL TSH, Ultra Sensitive 2.42 (0.36-3.74) IU/mL Meds: Medications Discontinued Medications Generic Name Dose Route Start Last Admin Trade Name Freq PRN Reason Stop Dose Admin Magnesium Chloride 64 mg 06/28/18 18:16 06/28/18 18:31 Mag-64 PO 06/28/18 18:17 64 mg ONETIME STA Administration Departure - Departure Time of Disposition: 18:21 Disposition: Home, Self-Care 01 Condition: Good Clinical Impression: Heart palpitations, Hypomagnesemia Instructions: Hypomagnesemia Referrals: PCP,None [Primary Care Provider] - Forms: ED Department Discharge Additional Instructions: Please continue your current medications, please check the magnesium level in one week, come back if acutely worse.
[2018-06-28] MEDS ORDERED: Magnesium Chloride 64 MG Tab.ER PO STA (18:16)
[2018-06-28 23:16] VITALS: BP 124/65
--- NOTE | 2018-07-02 11:30 | CR ---
INDICATION: Short of breath. CHEST: An AP upright view of the chest obtained portable 06/28/18 was compared with 06/26/18 and 06/23/18. Areas of infiltrate are again noted in the mid lung field on the right and mid to lower lung field on the left, similar to the previous examination, with what appears to be a large fixed hiatal hernia also present and evidence of ASHD with cardiomegaly. Fibrosis and possible areas of pneumonia cannot be excluded. Little interval change is suggested, compared with the previous examination. It is difficult to exclude mild degree of CHF with somewhat prominent upper lung field pulmonary vasculature also appearing to be present on the previous study; however, the degree of congestion appears increased on this current study. MTDD
== END 2018-06-28 19:20 | disposition home or self-care (01) ==
LOC: FB.ED 17:13
DX: I44.0 Atrioventricular block, first degree (principal); E83.42 Hypomagnesemia; I11.0 Hypertensive heart disease with heart failure; I50.9 Heart failure, unspecified; E11.9 Type 2 diabetes mellitus without complications; Z79.84 Long term (current) use of oral hypoglycemic drugs; Z79.899 Other long term (current) drug therapy
CPT/HCPCS: 36415; 71045; 80048; 83735; 84443; 84484; 85025; 93005; 99285; A9270

== ENCOUNTER 2018-07-16 08:47 | Inpatient (IN) | payer MEDICARE, MEDICAID ==
[2018-07-16] MEDS ORDERED: Sodium Chloride 0.9% 10 ML SDV IV STA (08:52)
[2018-07-16] MEDS ORDERED: Magnesium Sulfate/Water 2 GM in Premix Bag 1 BAG IV ONE (08:54)
[2018-07-16] MEDS ORDERED: Sodium Chloride 0.9% 1,000 ML IV ONE (09:00)
[2018-07-16] MEDS ORDERED: Piperacillin/Tazobactam 4.5 GM in Sodium Chloride 0.9% 100 ML IV SCH (09:30)
--- NOTE | 2018-07-16 09:59 | EDM.PDOC ---
ED HPI GENERAL MEDICAL PROBLEM - General Chief Complaint: Cardiovascular Problem Stated Complaint: LBP Time Seen by Provider: 07/16/18 08:49 Source of Information: Reports: Patient, EMS, [facility] Records History Limitations: Reports: No Limitations (except slightly poor memory ) - History of Present Illness INITIAL COMMENTS - FREE TEXT/NARRATIVE: patient is a pleasant 88yo male presenting today by EMS from the senior care with concern for low blood pressure, poor appetite, not feeling good, cough, and generalized weakness. Nursing also noted a foul smell when changing his foot bandages for chronic ulcers this AM. Diagnosed with pneumonia a week ago, has been on Augmentin. Nurse states that since he returned he has not had a good appetite nor very much energy. They noted crackles in the bases of both lungs this morning. He was given his usual morning medications including iron, metformin, spironolactone, bumex, and glipizide this morning. he tells me he has been coughing, but denies any headache, blurry vision, chest pain, nausea/vomiting, or feeling short of breath. Reportedly he has been on 2L oxygen since his pneumonia diagnosis. He denies any urinary symptoms, and feels a bit constipated. No abdominal pain. He doesn't really have pain in his heels or legs, no numbness or tingling. - Related Data Allergies Allergy/AdvReac Type Severity Reaction Status Date / Time No Known Allergies Allergy Verified 06/23/18 23:33 Home Meds: Home Meds metFORMIN [Glucophage] 1,000 mg PO BIDMEALS 03/20/14 [History] Simvastatin [Zocor] 40 mg PO BEDTIME 02/28/18 [History] Acetaminophen 650 mg PO Q4HR PRN 06/23/18 [History] Ascorbate Calcium [Vitamin C] 500 mg PO WITHDINNER 06/23/18 [History] Bisacodyl [Dulcolax] 10 mg RECTAL DAILY PRN 06/23/18 [History] Carboxymethylcellulose Sodium [Refresh Tears] 1 drop EYEBOTH BIDMEALS 06/23/18 [ History] Cyanocobalamin (Vitamin B-12) [Cyanocobalamin Injection] 1,000 mcg IM Q30D 06/23 [History] Magnesium Hydroxide [Milk of Magnesia] 30 ml PO DAILY PRN 06/23/18 [History] Magnesium Oxide [Magnesium] 400 mg PO TID 06/23/18 [History] Multivitamin with Minerals [Multivitamins with Minerals] 1 each PO DAILY [History] Potassium Chloride [Klor-Con M20] 20 meq PO DAILY 06/23/18 [History] Sennosides/Docusate Sodium [Senna Plus Tablet] 1 tab PO BIDMEALS 06/23/18 [ History] Spironolactone [Aldactone] 25 mg PO DAILY 06/23/18 [History] glipiZIDE [Glipizide ER] 10 mg PO DAILY #0 06/27/18 [Rx] Bumetanide 1 mg PO BID 07/16/18 [History] Iron Polysaccharides Complex [Ferrex 150] 150 mg PO BIDMEALS 07/16/18 [History] Nystatin [Nystatin Crm] 1 applic TOP BID 07/16/18 [History] Past Medical History HEENT History: Reports: Cataract Cardiovascular History: Reports: Heart Failure (normal ECHO), High Cholesterol, Hypertension Other Cardiovascular History: had heartrate of 160 on admit to ER Respiratory History: Reports: SOB, Other (See Below) Other Respiratory History: wears O2 at 2L NC all the time Gastrointestinal History: Reports: Colon Polyp Genitourinary History: Reports: None Musculoskeletal History: Reports: Arthritis, Osteoarthritis Neurological History: Reports: None Psychiatric History: Reports: None Endocrine/Metabolic History: Reports: Diabetes, Type II Hematologic History: Reports: Anemia, B12 Deficiency, Other (See Below) Other Hematologic History: takes iron Dermatologic History: Reports: Decubitus Ulcer, Other (See Below) Other Dermatologic History: patience heels - Infectious Disease History Infectious Disease History: Reports: Chicken Pox, Measles, Shingles - Past Surgical History HEENT Surgical History: Reports: Cataract Surgery, Tonsillectomy Cardiovascular Surgical History: Reports: None Respiratory Surgical History: Reports: None GI Surgical History: Reports: Colonoscopy Male Surgical History: Reports: None Endocrine Surgical History: Reports: None Neurological Surgical History: Reports: None Musculoskeletal Surgical History: Reports: Other (See Below) Other Musculoskeletal Surgeries/Procedures:: hand surgery on right hand Dermatological Surgical History: Reports: None Social & Family History - Family History Family Medical History: Noncontributory - Tobacco Use Smoking Status *Q: Current Status Unknown - Caffeine Use Caffeine Use: Reports: Coffee - Living Situation & Occupation Living situation: Reports: Extended Care Facility ED ROS GENERAL - Review of Systems Review Of Systems: ROS reveals no pertinent complaints other than HPI. (see HPI. all other systems negative, 10 point review) ED EXAM, GENERAL - Physical Exam Exam: See Below Free Text/Narrative:: General: Alert, oriented to self, time and place, uncertain recall of events. Pupils are equal and reactive, neck is freely movable and there is no signs of trauma. Heart is initially tachycardic, I do not hear murmur. Lungs have bilateral basilar crackles with no apparent wheezes. Abdomen positive bowel sounds, soft nondistended nontender. Peripheral pulses +2 in both the upper and lower extremities and they are warm to the touch. No lower extremity edema. He has bilateral decubitus ulcers on the heel which appear chronic and have some purulent blue/green drainage. Also reddened area present in groin. He has equal strength side to side and facial muscles are symmetric. No joint swelling. Course - Vital Signs Text/Narrative:: initial ekg - sinus tachycardia, no ST changes. Appears septic, possible septic shock, elevated respiratory rate, recent dx pneumonia, was on Augmentin until 2 days ago per senior care report. Low energy, still coughing, poor appetite. This AM low BP and elevated temp, new discharge and smell in decubitus ulcers. Received all of his regular medications this morning - bumex , spironolactone, metformin, glipizide, iron. Also reported baseline O2-- 2 liters, although patient states otherwise, says he doesn't usually need oxygen. ECHO showed normal EF in Mar 2018, but with diastolic dysfunction and suspected pulmonary hypertension. Has previously had elevated BNP on admission given tachycardia, low BP, 1L NS IVF ordered, labs, cultures, CXR. antibiotics - will give zosyn and vanc for broad spectrum coverage, no known allergies. Last Recorded V/S: Last Vital Signs Temp 37.9 C 07/16/18 11:00 Pulse 92 07/16/18 12:00 Resp 18 07/16/18 12:00 BP 108/50 L 07/16/18 12:00 Pulse Ox 100 07/16/18 12:00 - Orders/Labs/Meds Orders: Active Orders 24 hr Category Date Time Status Patient Status Manage Transfer [TRANSFER] Routine ADT 07/16/18 12:02 Active EKG Documentation Completion [RC] ASDIRECTED Care 07/16/18 08:53 Active EKG Documentation Completion [RC] ASDIRECTED Care 07/16/18 09:52 Active EKG Documentation Completion [RC] STAT Care 07/16/18 08:52 Active CULTURE BLOOD [BC] Urgent Lab 07/16/18 08:53 Ordered CULTURE BLOOD [BC] Urgent Lab 07/16/18 09:15 Received Piperacillin/Tazobactam [Zosyn] 3.375 gm Med 07/16/18 16:00 Active Sodium Chloride 0.9% [Normal Saline] 50 ml IV Q6H Sodium Chloride 0.9% [Normal Saline] 1,000 ml Med 07/16/18 10:15 Active IV ASDIRECTED metroNIDAZOLE/Normal Saline [Flagyl 500 MG in NS 100 ML Med 07/16/18 12:30 Active ] 500 mg Premix Bag 1 bag IV Q8H Blood Culture x2 Reflex Set [OM.PC] Urgent Oth 07/16/18 08:52 Ordered Resuscitation Status Routine Resus Stat 07/16/18 12:05 Ordered EKG 12 Lead [EK] Routine Ther 07/16/18 08:52 Ordered EKG 12 Lead [EK] Routine Ther 07/16/18 09:52 Ordered Medication Orders Sodium Chloride (Normal Saline) 1,000 mls @ 100 mls/hr IV ASDIRECTED [facility] Last Infusion: 07/16/18 10:37 Dose: 10 mls/hr Admin: 07/16/18 10:16 Dose: 100 mls/hr Metronidazole 500 mg/ Premix 100 mls @ 100 mls/hr IV Q8H [facility] Piperacillin Sod/Tazobactam (Sod 3.375 gm/ Sodium Chloride) 50 mls @ 100 mls/ hr IV Q6H [facility] Labs: Laboratory Tests 07/16/18 07/16/18 07/16/18 Range/Units 09:15 09:15 09:15 WBC 11.6 (4.5-12.0) X10-3/uL RBC 3.80 L (4.30-5.75) x10(6)uL Hgb 9.6 L (13.5-17.8) g/dL Hct 31.5 (30.0-51.3) % MCV 82.9 (80-96) fL MCH 25.3 L (27.7-33.6) pg MCHC 30.5 L (32.2-35.4) g/dL RDW 18.9 H (11.5-15.5) % Plt Count 241 (125-369) X10(3)uL Neut % (Auto) 76.9 (46-82) % Lymph % (Auto) 10.1 L (13-37) % [place] % (Auto) 11.6 (4-12) % Eos % (Auto) 1 (1.0-5.0) % Baso % (Auto) 0 (0-2) % Neut # (Auto) 9.0 H (1.6-8.3) # Lymph # (Auto) 1.2 (0.6-5.0) # [place] # (Auto) 1.4 H (0.0-1.3) # Eos # (Auto) 0.1 (0.0-0.8) # Baso # (Auto) 0.1 (0.0-0.2) # PT 10.4 (8.7-11.1) INR 1.07 (0.89-1.13) POC VBG pH (7.31-7.41) POC VBG pCO2 (41-51) mmHG POC VBG HCO3 (23-28) mmol/L POC VBG Total CO2 (24-29) mmol/L POC VBG Base Excess (-2-3) mmol/L Sodium 139 (135-145) mmol/L Potassium 4.6 (3.5-5.3) mmol/L Chloride 98 L (100-110) mmol/L Carbon Dioxide 31 (21-32) mmol/L BUN 30 H (7-18) mg/dL Creatinine 1.4 H (0.70-1.30) mg/dL Est Cr Clr Drug Dosing 41.22 mL/min Estimated GFR (MDRD) 48 L (>60) BUN/Creatinine Ratio 21.4 H (9-20) Glucose 185 H (80-116) mg/dL Lactic Acid (0.4-2.2) mmol/L Calcium 9.4 (8.6-10.2) mg/dL Magnesium (1.8-2.5) mg/dL Total Bilirubin 0.6 (0.1-1.3) mg/dL AST 15 D (5-25) IU/L ALT 14 D (12-36) U/L Alkaline Phosphatase 32 L (56-112) IU/L Troponin I (<0.017-0.056) ng/mL C-Reactive Protein (0.5-0.9) mg/dL NT-Pro-B Natriuret Pep (<=450) pg/mL Total Protein 7.6 (6.0-8.0) g/dL Albumin 2.4 L (3.2-4.6) g/dL Globulin 5.2 g/dL Albumin/Globulin Ratio 0.5 Urine Color (YELLOW) Urine Appearance (CLEAR) Urine pH (5.0-6.5) Ur Specific [place] (1.010-1.025) Urine Protein (NEGATIVE) mg/dL Urine Glucose (UA) (NORMAL) mg/dL Urine Ketones (NEGATIVE) mg/dL Urine Occult Blood (NEGATIVE) Urine Nitrite (NEGATIVE) Urine Bilirubin (NEGATIVE) Urine Urobilinogen (NEGATIVE) mg/dL Ur Leukocyte Esterase (NEGATIVE) Urine WBC (0-5) Ur Squamous Epith Cells (NS,R,O) Urine Bacteria (NS) 07/16/18 07/16/18 07/16/18 Range/Units 09:15 09:15 09:15 WBC (4.5-12.0) X10-3/uL RBC (4.30-5.75) x10(6)uL Hgb (13.5-17.8) g/dL Hct (30.0-51.3) % MCV (80-96) fL MCH (27.7-33.6) pg MCHC (32.2-35.4) g/dL RDW (11.5-15.5) % Plt Count (125-369) X10(3)uL Neut % (Auto) (46-82) % Lymph % (Auto) (13-37) % [place] % (Auto) (4-12) % Eos % (Auto) (1.0-5.0) % Baso % (Auto) (0-2) % Neut # (Auto) (1.6-8.3) # Lymph # (Auto) (0.6-5.0) # [place] # (Auto) (0.0-1.3) # Eos # (Auto) (0.0-0.8) # Baso # (Auto) (0.0-0.2) # PT (8.7-11.1) INR (0.89-1.13) POC VBG pH (7.31-7.41) POC VBG pCO2 (41-51) mmHG POC VBG HCO3 (23-28) mmol/L POC VBG Total CO2 (24-29) mmol/L POC VBG Base Excess (-2-3) mmol/L Sodium (135-145) mmol/L Potassium (3.5-5.3) mmol/L Chloride (100-110) mmol/L Carbon Dioxide (21-32) mmol/L BUN (7-18) mg/dL Creatinine (0.70-1.30) mg/dL Est Cr Clr Drug Dosing mL/min Estimated GFR (MDRD) (>60) BUN/Creatinine Ratio (9-20) Glucose (80-116) mg/dL Lactic Acid 1.6 (0.4-2.2) mmol/L Calcium (8.6-10.2) mg/dL Magnesium 2.5 (1.8-2.5) mg/dL Total Bilirubin (0.1-1.3) mg/dL AST (5-25) IU/L ALT (12-36) U/L Alkaline Phosphatase (56-112) IU/L Troponin I < 0.017 L (<0.017-0.056) ng/mL C-Reactive Protein (0.5-0.9) mg/dL NT-Pro-B Natriuret Pep (<=450) pg/mL Total Protein (6.0-8.0) g/dL Albumin (3.2-4.6) g/dL Globulin g/dL Albumin/Globulin Ratio Urine Color (YELLOW) Urine Appearance (CLEAR) Urine pH (5.0-6.5) Ur Specific [place] (1.010-1.025) Urine Protein (NEGATIVE) mg/dL Urine Glucose (UA) (NORMAL) mg/dL Urine Ketones (NEGATIVE) mg/dL Urine Occult Blood (NEGATIVE) Urine Nitrite (NEGATIVE) Urine Bilirubin (NEGATIVE) Urine Urobilinogen (NEGATIVE) mg/dL Ur Leukocyte Esterase (NEGATIVE) Urine WBC (0-5) Ur Squamous Epith Cells (NS,R,O) Urine Bacteria (NS) 07/16/18 07/16/1819 Range/Units 09:15 09:15 09:40 WBC (4.5-12.0) X10-3/uL RBC (4.30-5.75) x10(6)uL Hgb (13.5-17.8) g/dL Hct (30.0-51.3) % MCV (80-96) fL MCH (27.7-33.6) pg MCHC (32.2-35.4) g/dL RDW (11.5-15.5) % Plt Count (125-369) X10(3)uL Neut % (Auto) (46-82) % Lymph % (Auto) (13-37) % [place] % (Auto) (4-12) % Eos % (Auto) (1.0-5.0) % Baso % (Auto) (0-2) % Neut # (Auto) (1.6-8.3) # Lymph # (Auto) (0.6-5.0) # [place] # (Auto) (0.0-1.3) # Eos # (Auto) (0.0-0.8) # Baso # (Auto) (0.0-0.2) # PT (8.7-11.1) INR (0.89-1.13) POC VBG pH 7.39 (7.31-7.41) POC VBG pCO2 52.6 H (41-51) mmHG POC VBG HCO3 31.6 H (23-28) mmol/L POC VBG Total CO2 33 H (24-29) mmol/L POC VBG Base Excess 7 H (-2-3) mmol/L Sodium (135-145) mmol/L Potassium (3.5-5.3) mmol/L Chloride (100-110) mmol/L Carbon Dioxide (21-32) mmol/L BUN (7-18) mg/dL Creatinine (0.70-1.30) mg/dL Est Cr Clr Drug Dosing mL/min Estimated GFR (MDRD) (>60) BUN/Creatinine Ratio (9-20) Glucose (80-116) mg/dL Lactic Acid (0.4-2.2) mmol/L Calcium (8.6-10.2) mg/dL Magnesium (1.8-2.5) mg/dL Total Bilirubin (0.1-1.3) mg/dL AST (5-25) IU/L ALT (12-36) U/L Alkaline Phosphatase (56-112) IU/L Troponin I (<0.017-0.056) ng/mL C-Reactive Protein 16.5 H* (0.5-0.9) mg/dL NT-Pro-B Natriuret Pep 1008 H* (<=450) pg/mL Total Protein (6.0-8.0) g/dL Albumin (3.2-4.6) g/dL Globulin g/dL Albumin/Globulin Ratio Urine Color (YELLOW) Urine Appearance (CLEAR) Urine pH (5.0-6.5) Ur Specific [place] (1.010-1.025) Urine Protein (NEGATIVE) mg/dL Urine Glucose (UA) (NORMAL) mg/dL Urine Ketones (NEGATIVE) mg/dL Urine Occult Blood (NEGATIVE) Urine Nitrite (NEGATIVE) Urine Bilirubin (NEGATIVE) Urine Urobilinogen (NEGATIVE) mg/dL Ur Leukocyte Esterase (NEGATIVE) Urine WBC (0-5) Ur Squamous Epith Cells (NS,R,O) Urine Bacteria (NS) 07/16/18 Range/Units 11:03 WBC (4.5-12.0) X10-3/uL RBC (4.30-5.75) x10(6)uL Hgb (13.5-17.8) g/dL Hct (30.0-51.3) % MCV (80-96) fL MCH (27.7-33.6) pg MCHC (32.2-35.4) g/dL RDW (11.5-15.5) % Plt Count (125-369) X10(3)uL Neut % (Auto) (46-82) % Lymph % (Auto) (13-37) % [place] % (Auto) (4-12) % Eos % (Auto) (1.0-5.0) % Baso % (Auto) (0-2) % Neut # (Auto) (1.6-8.3) # Lymph # (Auto) (0.6-5.0) # [place] # (Auto) (0.0-1.3) # Eos # (Auto) (0.0-0.8) # Baso # (Auto) (0.0-0.2) # PT (8.7-11.1) INR (0.89-1.13) POC VBG pH (7.31-7.41) POC VBG pCO2 (41-51) mmHG POC VBG HCO3 (23-28) mmol/L POC VBG Total CO2 (24-29) mmol/L POC VBG Base Excess (-2-3) mmol/L Sodium (135-145) mmol/L Potassium (3.5-5.3) mmol/L Chloride (100-110) mmol/L Carbon Dioxide (21-32) mmol/L BUN (7-18) mg/dL Creatinine (0.70-1.30) mg/dL Est Cr Clr Drug Dosing mL/min Estimated GFR (MDRD) (>60) BUN/Creatinine Ratio (9-20) Glucose (80-116) mg/dL Lactic Acid (0.4-2.2) mmol/L Calcium (8.6-10.2) mg/dL Magnesium (1.8-2.5) mg/dL Total Bilirubin (0.1-1.3) mg/dL AST (5-25) IU/L ALT (12-36) U/L Alkaline Phosphatase (56-112) IU/L Troponin I (<0.017-0.056) ng/mL C-Reactive Protein (0.5-0.9) mg/dL NT-Pro-B Natriuret Pep (<=450) pg/mL Total Protein (6.0-8.0) g/dL Albumin (3.2-4.6) g/dL Globulin g/dL Albumin/Globulin Ratio Urine Color Yellow (YELLOW) Urine Appearance Clear (CLEAR) Urine pH 7.0 H (5.0-6.5) Ur Specific [place] 1.010 (1.010-1.025) Urine Protein Negative (NEGATIVE) mg/dL Urine Glucose (UA) Normal (NORMAL) mg/dL Urine Ketones Negative (NEGATIVE) mg/dL Urine Occult Blood Negative (NEGATIVE) Urine Nitrite Negative (NEGATIVE) Urine Bilirubin Negative (NEGATIVE) Urine Urobilinogen Normal (NEGATIVE) mg/dL Ur Leukocyte Esterase Negative (NEGATIVE) Urine WBC 0-5 (0-5) Ur Squamous Epith Cells Few H (NS,R,O) Urine Bacteria Few H (NS) Meds: Medications Generic Name Dose Route Start Last Admin Trade Name Freq PRN Reason Stop Dose Admin Sodium Chloride 1,000 mls @ 100 mls/hr 07/16/18 10:15 07/16/18 10:37 Normal Saline IV 10 mls/hr ASDIRECTED NARAYNA Infusion Metronidazole 500 mg/ Premix 100 mls @ 100 mls/hr 07/16/18 12:30 IV Q8H NARAYAN Piperacillin Sod/Tazobactam 50 mls @ 100 mls/hr 07/16/18 16:00 Sod 3.375 gm/ Sodium Chloride IV Q6H NARAYAN Discontinued Medications Generic Name Dose Route Start Last Admin Trade Name Freq PRN Reason Stop Dose Admin Magnesium Sulfate 2 gm/ Premix 50 mls @ 150 mls/hr 07/16/18 08:54 07/16/18 09 :12 IV 07/16/18 09:13 150 mls/hr ONETIME ONE Administration Sodium Chloride 1,000 mls @ 999 mls/hr 07/16/18 09:00 07/16/18 08:56 Normal Saline IV 07/16/18 10:00 999 mls/hr .BOLUS ONE Administration Piperacillin Sod/Tazobactam 100 mls @ 200 mls/hr 07/16/18 09:30 07/16/18 09: 35 Sod 4.5 gm/ Sodium Chloride IV 200 mls/hr STAT NARAYAN Administration Vancomycin HCl 2 gm/ Sodium 500 mls @ 250 mls/hr 07/16/18 10:00 07/16/18 10: 12 Chloride IV 07/16/18 11:59 250 mls/hr ONETIME ONE Administration Sodium Chloride 1,000 ml 07/16/18 08:52 07/16/18 09:14 Normal Saline IV 07/16/18 08:53 Not Given NOW STA - Re-Assessments/Exams Free Text/Narrative Re-Assessment/Exam: 07/16/18 recheck - still very tachycardic, about 500cc fluids in. Labs not yet resulted (and apparent trouble with CBC machine this AM) --looking through history, has previously had low Magnesium, will give one dose IV (yohannes since QTC prolonged on first EKG, though this may be more related to tachycardia) VBG very close to normal. incontinent of urine, uncertain if baseline, will get UA, may need to cath. Diarrhea noted by nursing - given recent antibiotic use, will get c. diff. heels unwrapped - blue-green tissue with some necrosis, no significant surrounding erythema however. Uncertain if this is source for infection vs lungs, but may need debrided. Has been following with Dr Munroe per records. He remains awake and talking with staff, slight confusion as to place, knows day. Free Text/Narrative Re-Assessment/Exam: 07/16/18 HR improving after 750ml fluids, blood pressure also much better. Maintaining sats ok at this time while awake. labs - slight increase in creatinine at 1.4, baseline appears to be 1.3. Electrolytes ok, BG 180's. CBC - sent out to clinic repeat EKG - sinus, borderline first degree block. Patient desatting to mid 80's when falls asleep, however still on 3L oxygen. will have nursing clean and place nonstick dressing over heels. Free Text/Narrative Re-Assessment/Exam: 07/16/18 CBC returned - mildly elevated WBC, 11.6, Hb is 9.6, normal platelets. Known chronic anemia, ?iron deficiency vs some form of blood loss, I am not certain from chart review. Vitals - HR now 95-100's, BP 104/50, sats 96% Discussed case with Dr. Feliz, Hospitalist, who accepts for admission Further review of chart - was anaerobic positive on 2 blood cultures at previous admission. For admit orders put for scheduled q6hr Zosyn and will add metronidazole 500mg IV q8 to cover anaerobes. Wonder about possible chronic aspiration. One dose of vancomycin given in ER, not re-ordered. Further per admitting team. IVF finished first liter plus additional from medications, none further ordered at this time. (Of note, he was able to drink some water a bit ago.) Will defer DVT prophylaxis to admitting team as I am still uncertain about the cause of patient's anemia. Courtesy called placed to Dr. Munroe letting him know patient has been admitted. Son-in-law SHU Montaño, updated by phone as well. Departure - Departure Time of Disposition: 12:56 Disposition: Admitted As Inpatient 66 Condition: Fair Clinical Impression: Pneumonia, Palliative care patient, NAOMI (acute kidney injury), Sinus tachycardia, Iron deficiency anemia, Dehydration Diabetes type 2, controlled Qualifiers: Diabetes mellitus intermediate accountant insulin use: without intermediate accountant use - My Orders Last 24 Hours: My Active Orders 07/16/18 08:52 EKG Documentation Completion [RC] STAT Blood Culture x2 Reflex Set [OM.PC] Urgent EKG 12 Lead [EK] Routine 07/16/18 08:53 EKG Documentation Completion [RC] ASDIRECTED CULTURE BLOOD [BC] Urgent 07/16/18 09:15 CULTURE BLOOD [BC] Urgent 07/16/18 09:52 EKG Documentation Completion [RC] ASDIRECTED EKG 12 Lead [EK] Routine 07/16/18 10:15 Sodium Chloride 0.9% [Normal Saline] 1,000 ml IV ASDIRECTED 07/16/18 12:02 Patient Status Manage Transfer [TRANSFER] Routine 07/16/18 12:05 Resuscitation Status Routine 07/16/18 12:30 metroNIDAZOLE/Normal Saline [Flagyl 500 MG in NS 100 ML] 500 mg Premix Bag 1 bag IV Q8H 07/16/18 16:00 Piperacillin/Tazobactam [Zosyn] 3.375 gm Sodium Chloride 0.9% [Normal Saline] 50 ml IV Q6H - Assessment/Plan Last 24 Hours: My Active Orders 07/16/18 08:52 EKG Documentation Completion [RC] STAT Blood Culture x2 Reflex Set [OM.PC] Urgent EKG 12 Lead [EK] Routine 07/16/18 08:53 EKG Documentation Completion [RC] ASDIRECTED CULTURE BLOOD [BC] Urgent 07/16/18 09:15 CULTURE BLOOD [BC] Urgent 07/16/18 09:52 EKG Documentation Completion [RC] ASDIRECTED EKG 12 Lead [EK] Routine 07/16/18 10:15 Sodium Chloride 0.9% [Normal Saline] 1,000 ml IV ASDIRECTED 07/16/18 12:02 Patient Status Manage Transfer [TRANSFER] Routine 07/16/18 12:05 Resuscitation Status Routine 07/16/18 12:30 metroNIDAZOLE/Normal Saline [Flagyl 500 MG in NS 100 ML] 500 mg Premix Bag 1 bag IV Q8H 07/16/18 16:00 Piperacillin/Tazobactam [Zosyn] 3.375 gm Sodium Chloride 0.9% [Normal Saline] 50 ml IV Q6H
[2018-07-16] MEDS ORDERED: Vancomycin 2 GM in Sodium Chloride 0.9% 500 ML IV ONE (10:00)
[2018-07-16] MEDS ORDERED: Sodium Chloride 0.9% 1,000 ML IV SCH ×2 (10:15→14:30)
--- NOTE | 2018-07-16 11:22 | CR ---
INDICATION: Hypoxia. CHEST: AP portable upright view of the chest, 07/16/18, was compared with 06/28 and 06/26/18, revealing somewhat improved appearance of the chest with decreasing infiltrate in the right mid lung field and left lower lung field. Degree of pulmonary vascular congestion appears to be significantly diminished, suggesting resolving CHF and lung edema and/or resolving pneumonia. The heart is difficult to evaluate, due to AP positioning and poor inspiration and may be slightly enlarged or at the upper limits of normal in size. Overlying EKG leads are noted. The aorta is tortuous with calcification in the arch. IMPRESSION: Appearance of the chest appears improved, compared with the previous study, suggesting resolving CHF and lung edema and/or resolving pneumonia - correlate clinically. MTDD
[2018-07-16] MEDS ORDERED: metroNIDAZOLE/Normal Saline 500 MG in Premix Bag 1 BAG IV SCH (12:30)
--- NOTE | 2018-07-16 12:52 | PCM.HP ---
<Brunilda Gilliam - Last Filed: 07/16/18 12:47> H&P History of Present Illness - General Date of Service: 07/16/18 Admit Problem/Dx: Admission Diagnosis/Problem Admission Diagnosis/Problem Pneumonia 88 year old male being admitted to the hospital for hemodynamic instability and possible pneumonia. This gentlemen is a resident of a alf, he informed staff he was not feeling very well this morning, his vitals were taken and he was found to be hypotensive and tachycardic. He did not have any specific complaints, just generalized malaise. He did also receive his regular medications this morning which include Bumetanide and Spironolactone. He was treated for a pneumonia with Augmentin, which he finished a couple of days ago. Unsure if there is a risk for aspiration. He is a resident of a alf which takes care of his meals, medications, and bathing. He is , has four children. 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 - History of Present Illness Onset of Symptoms: Reports: Today, Sudden Symptom Onset Date: 07/16/18 Other HPI/Comments: No specific concerns, just says overall not feeling well. - Related Data Allergies/Adverse Reactions: Allergies Allergy/AdvReac Type Severity Reaction Status Date / Time No Known Allergies Allergy Verified 07/16/18 14:14 Home Medications: Home Meds metFORMIN [Glucophage] 1,000 mg PO BIDMEALS 03/20/14 [History] Simvastatin [Zocor] 40 mg PO BEDTIME 02/28/18 [History] Acetaminophen 650 mg PO Q4HR PRN 06/23/18 [History] Ascorbate Calcium [Vitamin C] 500 mg PO WITHDINNER 06/23/18 [History] Bisacodyl [Dulcolax] 10 mg RECTAL DAILY PRN 06/23/18 [History] Carboxymethylcellulose Sodium [Refresh Tears] 1 drop EYEBOTH BIDMEALS 06/23/18 [ History] Cyanocobalamin (Vitamin B-12) [Cyanocobalamin Injection] 1,000 mcg IM Q30D 06/23 [History] Magnesium Hydroxide [Milk of Magnesia] 30 ml PO DAILY PRN 06/23/18 [History] Magnesium Oxide [Magnesium] 400 mg PO TID 06/23/18 [History] Multivitamin with Minerals [Multivitamins with Minerals] 1 each PO DAILY [History] Potassium Chloride [Klor-Con M20] 20 meq PO DAILY 06/23/18 [History] Sennosides/Docusate Sodium [Senna Plus Tablet] 1 tab PO BIDMEALS 06/23/18 [ History] Spironolactone [Aldactone] 25 mg PO DAILY 06/23/18 [History] glipiZIDE [Glipizide ER] 10 mg PO DAILY #0 06/27/18 [Rx] Bumetanide 1 mg PO BID 07/16/18 [History] Iron Polysaccharides Complex [Ferrex 150] 150 mg PO BIDMEALS 07/16/18 [History] Nystatin [Nystatin Crm] 1 applic TOP BID 07/16/18 [History] Past Medical History HEENT History: Reports: Cataract Cardiovascular History: Reports: Heart Failure (normal ECHO), High Cholesterol, Hypertension Other Cardiovascular History: had heartrate of 160 on admit to ER Respiratory History: Reports: SOB, Other (See Below) Other Respiratory History: wears O2 at 2L NC all the time Gastrointestinal History: Reports: Colon Polyp Genitourinary History: Reports: None Musculoskeletal History: Reports: Arthritis, Osteoarthritis Neurological History: Reports: None Psychiatric History: Reports: None Endocrine/Metabolic History: Reports: Diabetes, Type II Hematologic History: Reports: Anemia, B12 Deficiency, Other (See Below) Other Hematologic History: takes iron Dermatologic History: Reports: Decubitus Ulcer, Other (See Below) Other Dermatologic History: patience heels - Infectious Disease History Infectious Disease History: Reports: Chicken Pox, Measles, Shingles - Past Surgical History HEENT Surgical History: Reports: Cataract Surgery, Tonsillectomy Cardiovascular Surgical History: Reports: None Respiratory Surgical History: Reports: None GI Surgical History: Reports: Colonoscopy Male Surgical History: Reports: None Endocrine Surgical History: Reports: None Neurological Surgical History: Reports: None Musculoskeletal Surgical History: Reports: Other (See Below) Other Musculoskeletal Surgeries/Procedures:: hand surgery on right hand Dermatological Surgical History: Reports: None Social & Family History - Family History Family Medical History: Noncontributory - Tobacco Use Smoking Status *Q: Current Status Unknown - Caffeine Use Caffeine Use: Reports: Coffee - Recreational Drug Use Recreational Drug Use: No - Living Situation & Occupation Living situation: Reports: Extended Care Facility H&P Review of Systems - Review of Systems: Review Of Systems: See Below General: Reports: Weakness, Fatigue HEENT: Denies: No Symptoms Pulmonary: Reports: Cough. Denies: Shortness of Breath Cardiovascular: Denies: Chest Pain, Palpitations Gastrointestinal: Reports: Constipation. Denies: Diarrhea, Nausea, Vomiting Genitourinary: Denies: Burning, Hematuria Musculoskeletal: Reports: Foot Pain Psychiatric: Reports: No Symptoms Neurological: Reports: Weakness Exam - Exam Exam: See Below - Vital Signs Vital Signs: Last Vital Signs Temp 37.9 C 07/16/18 11:00 Pulse 92 07/16/18 12:00 Resp 18 07/16/18 12:00 BP 108/50 L 07/16/18 12:00 Pulse Ox 100 07/16/18 12:00 Weight: 227 lb - Exam Quality Assessment: Supplemental Oxygen General: Alert, Oriented Lungs: Normal Respiratory Effort, Crackles Cardiovascular: Regular Rate, Regular Rhythm GI/Abdominal Exam: Normal Bowel Sounds, Soft, Non-Tender Extremities: No Pedal Edema Skin: Warm, Dry - Patient Data Lab Results Last 24 hrs: Laboratory Results - last 24 hr 07/16/18 07/16/18 07/16/18 Range/Units 09:15 09:15 09:15 WBC 11.6 (4.5-12.0) X10-3/uL RBC 3.80 L (4.30-5.75) x10(6)uL Hgb 9.6 L (13.5-17.8) g/dL Hct 31.5 (30.0-51.3) % MCV 82.9 (80-96) fL MCH 25.3 L (27.7-33.6) pg MCHC 30.5 L (32.2-35.4) g/dL RDW 18.9 H (11.5-15.5) % Plt Count 241 (125-369) X10(3)uL Neut % (Auto) 76.9 (46-82) % Lymph % (Auto) 10.1 L (13-37) % [place] % (Auto) 11.6 (4-12) % Eos % (Auto) 1 (1.0-5.0) % Baso % (Auto) 0 (0-2) % Neut # (Auto) 9.0 H (1.6-8.3) # Lymph # (Auto) 1.2 (0.6-5.0) # [place] # (Auto) 1.4 H (0.0-1.3) # Eos # (Auto) 0.1 (0.0-0.8) # Baso # (Auto) 0.1 (0.0-0.2) # PT 10.4 (8.7-11.1) INR 1.07 (0.89-1.13) POC VBG pH (7.31-7.41) POC VBG pCO2 (41-51) mmHG POC VBG HCO3 (23-28) mmol/L POC VBG Total CO2 (24-29) mmol/L POC VBG Base Excess (-2-3) mmol/L Sodium 139 (135-145) mmol/L Potassium 4.6 (3.5-5.3) mmol/L Chloride 98 L (100-110) mmol/L Carbon Dioxide 31 (21-32) mmol/L BUN 30 H (7-18) mg/dL Creatinine 1.4 H (0.70-1.30) mg/dL Est Cr Clr Drug Dosing 41.22 mL/min Estimated GFR (MDRD) 48 L (>60) BUN/Creatinine Ratio 21.4 H (9-20) Glucose 185 H (80-116) mg/dL Lactic Acid (0.4-2.2) mmol/L Calcium 9.4 (8.6-10.2) mg/dL Magnesium (1.8-2.5) mg/dL Total Bilirubin 0.6 (0.1-1.3) mg/dL AST 15 D (5-25) IU/L ALT 14 D (12-36) U/L Alkaline Phosphatase 32 L (56-112) IU/L Troponin I (<0.017-0.056) ng/mL C-Reactive Protein (0.5-0.9) mg/dL NT-Pro-B Natriuret Pep (<=450) pg/mL Total Protein 7.6 (6.0-8.0) g/dL Albumin 2.4 L (3.2-4.6) g/dL Globulin 5.2 g/dL Albumin/Globulin Ratio 0.5 Urine Color (YELLOW) Urine Appearance (CLEAR) Urine pH (5.0-6.5) Ur Specific [place] (1.010-1.025) Urine Protein (NEGATIVE) mg/dL Urine Glucose (UA) (NORMAL) mg/dL Urine Ketones (NEGATIVE) mg/dL Urine Occult Blood (NEGATIVE) Urine Nitrite (NEGATIVE) Urine Bilirubin (NEGATIVE) Urine Urobilinogen (NEGATIVE) mg/dL Ur Leukocyte Esterase (NEGATIVE) Urine WBC (0-5) Ur Squamous Epith Cells (NS,R,O) Urine Bacteria (NS) 07/16/18 07/16/18 07/16/18 Range/Units 09:15 09:15 09:15 WBC (4.5-12.0) X10-3/uL RBC (4.30-5.75) x10(6)uL Hgb (13.5-17.8) g/dL Hct (30.0-51.3) % MCV (80-96) fL MCH (27.7-33.6) pg MCHC (32.2-35.4) g/dL RDW (11.5-15.5) % Plt Count (125-369) X10(3)uL Neut % (Auto) (46-82) % Lymph % (Auto) (13-37) % [place] % (Auto) (4-12) % Eos % (Auto) (1.0-5.0) % Baso % (Auto) (0-2) % Neut # (Auto) (1.6-8.3) # Lymph # (Auto) (0.6-5.0) # [place] # (Auto) (0.0-1.3) # Eos # (Auto) (0.0-0.8) # Baso # (Auto) (0.0-0.2) # PT (8.7-11.1) INR (0.89-1.13) POC VBG pH (7.31-7.41) POC VBG pCO2 (41-51) mmHG POC VBG HCO3 (23-28) mmol/L POC VBG Total CO2 (24-29) mmol/L POC VBG Base Excess (-2-3) mmol/L Sodium (135-145) mmol/L Potassium (3.5-5.3) mmol/L Chloride (100-110) mmol/L Carbon Dioxide (21-32) mmol/L BUN (7-18) mg/dL Creatinine (0.70-1.30) mg/dL Est Cr Clr Drug Dosing mL/min Estimated GFR (MDRD) (>60) BUN/Creatinine Ratio (9-20) Glucose (80-116) mg/dL Lactic Acid 1.6 (0.4-2.2) mmol/L Calcium (8.6-10.2) mg/dL Magnesium 2.5 (1.8-2.5) mg/dL Total Bilirubin (0.1-1.3) mg/dL AST (5-25) IU/L ALT (12-36) U/L Alkaline Phosphatase (56-112) IU/L Troponin I < 0.017 L (<0.017-0.056) ng/mL C-Reactive Protein (0.5-0.9) mg/dL NT-Pro-B Natriuret Pep (<=450) pg/mL Total Protein (6.0-8.0) g/dL Albumin (3.2-4.6) g/dL Globulin g/dL Albumin/Globulin Ratio Urine Color (YELLOW) Urine Appearance (CLEAR) Urine pH (5.0-6.5) Ur Specific [place] (1.010-1.025) Urine Protein (NEGATIVE) mg/dL Urine Glucose (UA) (NORMAL) mg/dL Urine Ketones (NEGATIVE) mg/dL Urine Occult Blood (NEGATIVE) Urine Nitrite (NEGATIVE) Urine Bilirubin (NEGATIVE) Urine Urobilinogen (NEGATIVE) mg/dL Ur Leukocyte Esterase (NEGATIVE) Urine WBC (0-5) Ur Squamous Epith Cells (NS,R,O) Urine Bacteria (NS) 07/16/18 07/16/18 07/16/18 Range/Units 09:15 09:15 09:40 WBC (4.5-12.0) X10-3/uL RBC (4.30-5.75) x10(6)uL Hgb (13.5-17.8) g/dL Hct (30.0-51.3) % MCV (80-96) fL MCH (27.7-33.6) pg MCHC (32.2-35.4) g/dL RDW (11.5-15.5) % Plt Count (125-369) X10(3)uL Neut % (Auto) (46-82) % Lymph % (Auto) (13-37) % [place] % (Auto) (4-12) % Eos % (Auto) (1.0-5.0) % Baso % (Auto) (0-2) % Neut # (Auto) (1.6-8.3) # Lymph # (Auto) (0.6-5.0) # [place] # (Auto) (0.0-1.3) # Eos # (Auto) (0.0-0.8) # Baso # (Auto) (0.0-0.2) # PT (8.7-11.1) INR (0.89-1.13) POC VBG pH 7.39 (7.31-7.41) POC VBG pCO2 52.6 H (41-51) mmHG POC VBG HCO3 31.6 H (23-28) mmol/L POC VBG Total CO2 33 H (24-29) mmol/L POC VBG Base Excess 7 H (-2-3) mmol/L Sodium (135-145) mmol/L Potassium (3.5-5.3) mmol/L Chloride (100-110) mmol/L Carbon Dioxide (21-32) mmol/L BUN (7-18) mg/dL Creatinine (0.70-1.30) mg/dL Est Cr Clr Drug Dosing mL/min Estimated GFR (MDRD) (>60) BUN/Creatinine Ratio (9-20) Glucose (80-116) mg/dL Lactic Acid (0.4-2.2) mmol/L Calcium (8.6-10.2) mg/dL Magnesium (1.8-2.5) mg/dL Total Bilirubin (0.1-1.3) mg/dL AST (5-25) IU/L ALT (12-36) U/L Alkaline Phosphatase (56-112) IU/L Troponin I (<0.017-0.056) ng/mL C-Reactive Protein 16.5 H* (0.5-0.9) mg/dL NT-Pro-B Natriuret Pep 1008 H* (<=450) pg/mL Total Protein (6.0-8.0) g/dL Albumin (3.2-4.6) g/dL Globulin g/dL Albumin/Globulin Ratio Urine Color (YELLOW) Urine Appearance (CLEAR) Urine pH (5.0-6.5) Ur Specific [place] (1.010-1.025) Urine Protein (NEGATIVE) mg/dL Urine Glucose (UA) (NORMAL) mg/dL Urine Ketones (NEGATIVE) mg/dL Urine Occult Blood (NEGATIVE) Urine Nitrite (NEGATIVE) Urine Bilirubin (NEGATIVE) Urine Urobilinogen (NEGATIVE) mg/dL Ur Leukocyte Esterase (NEGATIVE) Urine WBC (0-5) Ur Squamous Epith Cells (NS,R,O) Urine Bacteria (NS) 07/16/18 Range/Units 11:03 WBC (4.5-12.0) X10-3/uL RBC (4.30-5.75) x10(6)uL Hgb (13.5-17.8) g/dL Hct (30.0-51.3) % MCV (80-96) fL MCH (27.7-33.6) pg MCHC (32.2-35.4) g/dL RDW (11.5-15.5) % Plt Count (125-369) X10(3)uL Neut % (Auto) (46-82) % Lymph % (Auto) (13-37) % [place] % (Auto) (4-12) % Eos % (Auto) (1.0-5.0) % Baso % (Auto) (0-2) % Neut # (Auto) (1.6-8.3) # Lymph # (Auto) (0.6-5.0) # [place] # (Auto) (0.0-1.3) # Eos # (Auto) (0.0-0.8) # Baso # (Auto) (0.0-0.2) # PT (8.7-11.1) INR (0.89-1.13) POC VBG pH (7.31-7.41) POC VBG pCO2 (41-51) mmHG POC VBG HCO3 (23-28) mmol/L POC VBG Total CO2 (24-29) mmol/L POC VBG Base Excess (-2-3) mmol/L Sodium (135-145) mmol/L Potassium (3.5-5.3) mmol/L Chloride (100-110) mmol/L Carbon Dioxide (21-32) mmol/L BUN (7-18) mg/dL Creatinine (0.70-1.30) mg/dL Est Cr Clr Drug Dosing mL/min Estimated GFR (MDRD) (>60) BUN/Creatinine Ratio (9-20) Glucose (80-116) mg/dL Lactic Acid (0.4-2.2) mmol/L Calcium (8.6-10.2) mg/dL Magnesium (1.8-2.5) mg/dL Total Bilirubin (0.1-1.3) mg/dL AST (5-25) IU/L ALT (12-36) U/L Alkaline Phosphatase (56-112) IU/L Troponin I (<0.017-0.056) ng/mL C-Reactive Protein (0.5-0.9) mg/dL NT-Pro-B Natriuret Pep (<=450) pg/mL Total Protein (6.0-8.0) g/dL Albumin (3.2-4.6) g/dL Globulin g/dL Albumin/Globulin Ratio Urine Color Yellow (YELLOW) Urine Appearance Clear (CLEAR) Urine pH 7.0 H (5.0-6.5) Ur Specific [place] 1.010 (1.010-1.025) Urine Protein Negative (NEGATIVE) mg/dL Urine Glucose (UA) Normal (NORMAL) mg/dL Urine Ketones Negative (NEGATIVE) mg/dL Urine Occult Blood Negative (NEGATIVE) Urine Nitrite Negative (NEGATIVE) Urine Bilirubin Negative (NEGATIVE) Urine Urobilinogen Normal (NEGATIVE) mg/dL Ur Leukocyte Esterase Negative (NEGATIVE) Urine WBC 0-5 (0-5) Ur Squamous Epith Cells Few H (NS,R,O) Urine Bacteria Few H (NS) Result Diagrams: 07/16/18 09:15 07/16/18 09:15 - Problem List (1) Pneumonia SNOMED Code(s): 992437508 ICD Code: J18.9 - PNEUMONIA, UNSPECIFIED ORGANISM Status: Acute Current Visit: Yes (2) Palliative care patient SNOMED Code(s): 739872663 ICD Code: Z51.5 - ENCOUNTER FOR PALLIATIVE CARE Status: Acute Current Visit: Yes (3) NAOMI (acute kidney injury) SNOMED Code(s): 49142242, 06038411 ICD Code: N17.9 - ACUTE KIDNEY FAILURE, UNSPECIFIED Status: Acute Current Visit: No (4) Diabetes type 2, controlled SNOMED Code(s): 12846673, 889303644 ICD Code: E11.9 - TYPE 2 DIABETES MELLITUS WITHOUT COMPLICATIONS Status: Acute Current Visit: No Qualifiers: Diabetes mellitus retirement insulin use: without project economist use (5) Iron deficiency anemia SNOMED Code(s): 28707675 ICD Code: D50.9 - IRON DEFICIENCY ANEMIA, UNSPECIFIED Status: Acute Current Visit: No Problem List Initiated/Reviewed/Updated: Yes Orders Last 24hrs: Active Orders 24 hr Category Date Time Status Patient Status Manage Transfer [TRANSFER] Routine ADT 07/16/18 12:02 Active Blood Glucose Check, Bedside [RC] ONETIME Care 07/16/18 08:56 Active EKG Documentation Completion [RC] ASDIRECTED Care 07/16/18 08:53 Active EKG Documentation Completion [RC] ASDIRECTED Care 07/16/18 09:52 Active EKG Documentation Completion [RC] STAT Care 07/16/18 08:52 Active CULTURE BLOOD [BC] Urgent Lab 07/16/18 08:53 Ordered CULTURE BLOOD [BC] Urgent Lab 07/16/18 09:15 Received Piperacillin/Tazobactam [Zosyn] 3.375 gm Med 07/16/18 16:00 Active Sodium Chloride 0.9% [Normal Saline] 50 ml IV Q6H Sodium Chloride 0.9% [Normal Saline] 1,000 ml Med 07/16/18 10:15 Active IV ASDIRECTED metroNIDAZOLE/Normal Saline [Flagyl 500 MG in NS 100 ML Med 07/16/18 12:30 Active ] 500 mg Premix Bag 1 bag IV Q8H Blood Culture x2 Reflex Set [OM.PC] Urgent Oth 07/16/18 08:52 Ordered Resuscitation Status Routine Resus Stat 07/16/18 12:05 Ordered EKG 12 Lead [EK] Routine Ther 07/16/18 08:52 Ordered EKG 12 Lead [EK] Routine Ther 07/16/18 09:52 Ordered Medication Orders Sodium Chloride (Normal Saline) 1,000 mls @ 100 mls/hr IV ASDIRECTED NARAYAN Last Infusion: 07/16/18 10:37 Dose: 10 mls/hr Admin: 07/16/18 10:16 Dose: 100 mls/hr Metronidazole 500 mg/ Premix 100 mls @ 100 mls/hr IV Q8H NARAYAN Piperacillin Sod/Tazobactam (Sod 3.375 gm/ Sodium Chloride) 50 mls @ 100 mls/ hr IV Q6H [facility] Assessment/Plan Comment:: 1. DNR 2. Diabetic diet 3. Blood cultures pending 4. Continue Zosyn and Vancomycin 5. Up with assist 6. Repeat CXR in AM 7. IVF 8. Lovenox for DVT prophylaxis <Anurag Feliz - Last Filed: 07/17/18 08:59> H&P History of Present Illness - General Admit Problem/Dx: Admission Diagnosis/Problem Admission Diagnosis/Problem Pneumonia Exam - Vital Signs Vital Signs: Last Vital Signs Temp 98.9 F 07/17/18 05:12 Pulse 84 07/17/18 05:14 Resp 20 07/17/18 05:12 BP 107/69 07/17/18 05:14 Pulse Ox 97 07/17/18 04:01 - Patient Data Lab Results Last 24 hrs: Laboratory Results - last 24 hr 07/16/18 07/16/18 07/16/18 Range/Units 08:58 09:15 09:15 WBC 11.6 (4.5-12.0) X10-3/uL RBC 3.80 L (4.30-5.75) x10(6)uL Hgb 9.6 L (13.5-17.8) g/dL Hct 31.5 (30.0-51.3) % MCV 82.9 (80-96) fL MCH 25.3 L (27.7-33.6) pg MCHC 30.5 L (32.2-35.4) g/dL RDW 18.9 H (11.5-15.5) % Plt Count 241 (125-369) X10(3)uL MPV (7.4-10.4) fL Neut % (Auto) 76.9 (46-82) % Lymph % (Auto) 10.1 L (13-37) % [place] % (Auto) 11.6 (4-12) % Eos % (Auto) 1 (1.0-5.0) % Baso % (Auto) 0 (0-2) % Neut # (Auto) 9.0 H (1.6-8.3) # Lymph # (Auto) 1.2 (0.6-5.0) # [place] # (Auto) 1.4 H (0.0-1.3) # Eos # (Auto) 0.1 (0.0-0.8) # Baso # (Auto) 0.1 (0.0-0.2) # PT 10.4 (8.7-11.1) INR 1.07 (0.89-1.13) POC VBG pH (7.31-7.41) POC VBG pCO2 (41-51) mmHG POC VBG HCO3 (23-28) mmol/L POC VBG Total CO2 (24-29) mmol/L POC VBG Base Excess (-2-3) mmol/L Sodium (135-145) mmol/L Potassium (3.5-5.3) mmol/L Chloride (100-110) mmol/L Carbon Dioxide (21-32) mmol/L BUN (7-18) mg/dL Creatinine (0.70-1.30) mg/dL Est Cr Clr Drug Dosing mL/min Estimated GFR (MDRD) (>60) BUN/Creatinine Ratio (9-20) Glucose (80-116) mg/dL POC Glucose 204 H D (80-116) mg/dL Lactic Acid (0.4-2.2) mmol/L Calcium (8.6-10.2) mg/dL Magnesium (1.8-2.5) mg/dL Total Bilirubin (0.1-1.3) mg/dL AST (5-25) IU/L ALT (12-36) U/L Alkaline Phosphatase (56-112) IU/L Troponin I (<0.017-0.056) ng/mL C-Reactive Protein (0.5-0.9) mg/dL NT-Pro-B Natriuret Pep (<=450) pg/mL Total Protein (6.0-8.0) g/dL Albumin (3.2-4.6) g/dL Globulin g/dL Albumin/Globulin Ratio Urine Color (YELLOW) Urine Appearance (CLEAR) Urine pH (5.0-6.5) Ur Specific [place] (1.010-1.025) Urine Protein (NEGATIVE) mg/dL Urine Glucose (UA) (NORMAL) mg/dL Urine Ketones (NEGATIVE) mg/dL Urine Occult Blood (NEGATIVE) Urine Nitrite (NEGATIVE) Urine Bilirubin (NEGATIVE) Urine Urobilinogen (NEGATIVE) mg/dL Ur Leukocyte Esterase (NEGATIVE) Urine WBC (0-5) Ur Squamous Epith Cells (NS,R,O) Urine Bacteria (NS) 07/16/18 07/16/18 07/16/18 Range/Units 09:15 09:15 09:15 WBC (4.5-12.0) X10-3/uL RBC (4.30-5.75) x10(6)uL Hgb (13.5-17.8) g/dL Hct (30.0-51.3) % MCV (80-96) fL MCH (27.7-33.6) pg MCHC (32.2-35.4) g/dL RDW (11.5-15.5) % Plt Count (125-369) X10(3)uL MPV (7.4-10.4) fL Neut % (Auto) (46-82) % Lymph % (Auto) (13-37) % [place] % (Auto) (4-12) % Eos % (Auto) (1.0-5.0) % Baso % (Auto) (0-2) % Neut # (Auto) (1.6-8.3) # Lymph # (Auto) (0.6-5.0) # [place] # (Auto) (0.0-1.3) # Eos # (Auto) (0.0-0.8) # Baso # (Auto) (0.0-0.2) # PT (8.7-11.1) INR (0.89-1.13) POC VBG pH (7.31-7.41) POC VBG pCO2 (41-51) mmHG POC VBG HCO3 (23-28) mmol/L POC VBG Total CO2 (24-29) mmol/L POC VBG Base Excess (-2-3) mmol/L Sodium 139 (135-145) mmol/L Potassium 4.6 (3.5-5.3) mmol/L Chloride 98 L (100-110) mmol/L Carbon Dioxide 31 (21-32) mmol/L BUN 30 H (7-18) mg/dL Creatinine 1.4 H (0.70-1.30) mg/dL Est Cr Clr Drug Dosing 41.22 mL/min Estimated GFR (MDRD) 48 L (>60) BUN/Creatinine Ratio 21.4 H (9-20) Glucose 185 H (80-116) mg/dL POC Glucose (80-116) mg/dL Lactic Acid 1.6 (0.4-2.2) mmol/L Calcium 9.4 (8.6-10.2) mg/dL Magnesium (1.8-2.5) mg/dL Total Bilirubin 0.6 (0.1-1.3) mg/dL AST 15 D (5-25) IU/L ALT 14 D (12-36) U/L Alkaline Phosphatase 32 L (56-112) IU/L Troponin I < 0.017 L (<0.017-0.056) ng/mL C-Reactive Protein (0.5-0.9) mg/dL NT-Pro-B Natriuret Pep (<=450) pg/mL Total Protein 7.6 (6.0-8.0) g/dL Albumin 2.4 L (3.2-4.6) g/dL Globulin 5.2 g/dL Albumin/Globulin Ratio 0.5 Urine Color (YELLOW) Urine Appearance (CLEAR) Urine pH (5.0-6.5) Ur Specific [place] (1.010-1.025) Urine Protein (NEGATIVE) mg/dL Urine Glucose (UA) (NORMAL) mg/dL Urine Ketones (NEGATIVE) mg/dL Urine Occult Blood (NEGATIVE) Urine Nitrite (NEGATIVE) Urine Bilirubin (NEGATIVE) Urine Urobilinogen (NEGATIVE) mg/dL Ur Leukocyte Esterase (NEGATIVE) Urine WBC (0-5) Ur Squamous Epith Cells (NS,R,O) Urine Bacteria (NS) 07/16/18 07/16/18 07/16/18 Range/Units 09:15 09:15 09:15 WBC (4.5-12.0) X10-3/uL RBC (4.30-5.75) x10(6)uL Hgb (13.5-17.8) g/dL Hct (30.0-51.3) % MCV (80-96) fL MCH (27.7-33.6) pg MCHC (32.2-35.4) g/dL RDW (11.5-15.5) % Plt Count (125-369) X10(3)uL MPV (7.4-10.4) fL Neut % (Auto) (46-82) % Lymph % (Auto) (13-37) % [place] % (Auto) (4-12) % Eos % (Auto) (1.0-5.0) % Baso % (Auto) (0-2) % Neut # (Auto) (1.6-8.3) # Lymph # (Auto) (0.6-5.0) # [place] # (Auto) (0.0-1.3) # Eos # (Auto) (0.0-0.8) # Baso # (Auto) (0.0-0.2) # PT (8.7-11.1) INR (0.89-1.13) POC VBG pH (7.31-7.41) POC VBG pCO2 (41-51) mmHG POC VBG HCO3 (23-28) mmol/L POC VBG Total CO2 (24-29) mmol/L POC VBG Base Excess (-2-3) mmol/L Sodium (135-145) mmol/L Potassium (3.5-5.3) mmol/L Chloride (100-110) mmol/L Carbon Dioxide (21-32) mmol/L BUN (7-18) mg/dL Creatinine (0.70-1.30) mg/dL Est Cr Clr Drug Dosing mL/min Estimated GFR (MDRD) (>60) BUN/Creatinine Ratio (9-20) Glucose (80-116) mg/dL POC Glucose (80-116) mg/dL Lactic Acid (0.4-2.2) mmol/L Calcium (8.6-10.2) mg/dL Magnesium 2.5 (1.8-2.5) mg/dL Total Bilirubin (0.1-1.3) mg/dL AST (5-25) IU/L ALT (12-36) U/L Alkaline Phosphatase (56-112) IU/L Troponin I (<0.017-0.056) ng/mL C-Reactive Protein 16.5 H* (0.5-0.9) mg/dL NT-Pro-B Natriuret Pep 1008 H* (<=450) pg/mL Total Protein (6.0-8.0) g/dL Albumin (3.2-4.6) g/dL Globulin g/dL Albumin/Globulin Ratio Urine Color (YELLOW) Urine Appearance (CLEAR) Urine pH (5.0-6.5) Ur Specific [place] (1.010-1.025) Urine Protein (NEGATIVE) mg/dL Urine Glucose (UA) (NORMAL) mg/dL Urine Ketones (NEGATIVE) mg/dL Urine Occult Blood (NEGATIVE) Urine Nitrite (NEGATIVE) Urine Bilirubin (NEGATIVE) Urine Urobilinogen (NEGATIVE) mg/dL Ur Leukocyte Esterase (NEGATIVE) Urine WBC (0-5) Ur Squamous Epith Cells (NS,R,O) Urine Bacteria (NS) 07/16/18 07/16/18 07/16/18 Range/Units 09:40 11:03 18:52 WBC (4.5-12.0) X10-3/uL RBC (4.30-5.75) x10(6)uL Hgb (13.5-17.8) g/dL Hct (30.0-51.3) % MCV (80-96) fL MCH (27.7-33.6) pg MCHC (32.2-35.4) g/dL RDW (11.5-15.5) % Plt Count (125-369) X10(3)uL MPV (7.4-10.4) fL Neut % (Auto) (46-82) % Lymph % (Auto) (13-37) % [place] % (Auto) (4-12) % Eos % (Auto) (1.0-5.0) % Baso % (Auto) (0-2) % Neut # (Auto) (1.6-8.3) # Lymph # (Auto) (0.6-5.0) # [place] # (Auto) (0.0-1.3) # Eos # (Auto) (0.0-0.8) # Baso # (Auto) (0.0-0.2) # PT (8.7-11.1) INR (0.89-1.13) POC VBG pH 7.39 (7.31-7.41) POC VBG pCO2 52.6 H (41-51) mmHG POC VBG HCO3 31.6 H (23-28) mmol/L POC VBG Total CO2 33 H (24-29) mmol/L POC VBG Base Excess 7 H (-2-3) mmol/L Sodium (135-145) mmol/L Potassium (3.5-5.3) mmol/L Chloride (100-110) mmol/L Carbon Dioxide (21-32) mmol/L BUN (7-18) mg/dL Creatinine (0.70-1.30) mg/dL Est Cr Clr Drug Dosing mL/min Estimated GFR (MDRD) (>60) BUN/Creatinine Ratio (9-20) Glucose (80-116) mg/dL POC Glucose 221 H (80-116) mg/dL Lactic Acid (0.4-2.2) mmol/L Calcium (8.6-10.2) mg/dL Magnesium (1.8-2.5) mg/dL Total Bilirubin (0.1-1.3) mg/dL AST (5-25) IU/L ALT (12-36) U/L Alkaline Phosphatase (56-112) IU/L Troponin I (<0.017-0.056) ng/mL C-Reactive Protein (0.5-0.9) mg/dL NT-Pro-B Natriuret Pep (<=450) pg/mL Total Protein (6.0-8.0) g/dL Albumin (3.2-4.6) g/dL Globulin g/dL Albumin/Globulin Ratio Urine Color Yellow (YELLOW) Urine Appearance Clear (CLEAR) Urine pH 7.0 H (5.0-6.5) Ur Specific [place] 1.010 (1.010-1.025) Urine Protein Negative (NEGATIVE) mg/dL Urine Glucose (UA) Normal (NORMAL) mg/dL Urine Ketones Negative (NEGATIVE) mg/dL Urine Occult Blood Negative (NEGATIVE) Urine Nitrite Negative (NEGATIVE) Urine Bilirubin Negative (NEGATIVE) Urine Urobilinogen Normal (NEGATIVE) mg/dL Ur Leukocyte Esterase Negative (NEGATIVE) Urine WBC 0-5 (0-5) Ur Squamous Epith Cells Few H (NS,R,O) Urine Bacteria Few H (NS) 07/17/18 07/17/18 07/17/18 Range/Units 05:40 05:40 05:40 WBC 9.5 (4.5-12.0) X10-3/uL RBC 3.75 L (4.30-5.75) x10(6)uL Hgb 9.4 L (13.5-17.8) g/dL Hct 30.3 (30.0-51.3) % MCV 80.8 (80-96) fL MCH 25.1 L (27.7-33.6) pg MCHC 31.1 L (32.2-35.4) g/dL RDW 20.2 H (11.5-15.5) % Plt Count 186 (125-369) X10(3)uL MPV 8.5 (7.4-10.4) fL Neut % (Auto) 72.9 (46-82) % Lymph % (Auto) 11.4 L (13-37) % [place] % (Auto) 13.8 H (4-12) % Eos % (Auto) 1 (1.0-5.0) % Baso % (Auto) 1 (0-2) % Neut # (Auto) 6.9 (1.6-8.3) # Lymph # (Auto) 1.1 (0.6-5.0) # [place] # (Auto) 1.3 (0.0-1.3) # Eos # (Auto) 0.1 (0.0-0.8) # Baso # (Auto) 0.0 (0.0-0.2) # PT (8.7-11.1) INR (0.89-1.13) POC VBG pH (7.31-7.41) POC VBG pCO2 (41-51) mmHG POC VBG HCO3 (23-28) mmol/L POC VBG Total CO2 (24-29) mmol/L POC VBG Base Excess (-2-3) mmol/L Sodium 139 (135-145) mmol/L Potassium 4.3 (3.5-5.3) mmol/L Chloride 101 (100-110) mmol/L Carbon Dioxide 27 (21-32) mmol/L BUN 31 H (7-18) mg/dL Creatinine 1.7 H (0.70-1.30) mg/dL Est Cr Clr Drug Dosing 33.94 mL/min Estimated GFR (MDRD) 38 L (>60) BUN/Creatinine Ratio 18.2 (9-20) Glucose 132 H (80-116) mg/dL POC Glucose (80-116) mg/dL Lactic Acid (0.4-2.2) mmol/L Calcium 8.8 (8.6-10.2) mg/dL Magnesium 2.5 (1.8-2.5) mg/dL Total Bilirubin 0.7 (0.1-1.3) mg/dL AST 29 H D (5-25) IU/L ALT 40 H D (12-36) U/L Alkaline Phosphatase 37 L (56-112) IU/L Troponin I (<0.017-0.056) ng/mL C-Reactive Protein (0.5-0.9) mg/dL NT-Pro-B Natriuret Pep (<=450) pg/mL Total Protein 6.9 (6.0-8.0) g/dL Albumin 2.2 L (3.2-4.6) g/dL Globulin 4.7 g/dL Albumin/Globulin Ratio 0.5 Urine Color (YELLOW) Urine Appearance (CLEAR) Urine pH (5.0-6.5) Ur Specific [place] (1.010-1.025) Urine Protein (NEGATIVE) mg/dL Urine Glucose (UA) (NORMAL) mg/dL Urine Ketones (NEGATIVE) mg/dL Urine Occult Blood (NEGATIVE) Urine Nitrite (NEGATIVE) Urine Bilirubin (NEGATIVE) Urine Urobilinogen (NEGATIVE) mg/dL Ur Leukocyte Esterase (NEGATIVE) Urine WBC (0-5) Ur Squamous Epith Cells (NS,R,O) Urine Bacteria (NS) Result Diagrams: 07/17/18 05:40 07/17/18 05:40 Orders Last 24hrs: Active Orders 24 hr Category Date Time Status Patient Status [ADT] Routine ADT 07/16/18 14:10 Active Accu Check [Blood Glucose Check, Bedside] [RC] BIDMEALS Care 07/16/18 14:20 Active Blood Glucose Check, Bedside [RC] ONETIME Care 07/16/18 08:56 Active EKG Documentation Completion [RC] ASDIRECTED Care 07/17/18 05:03 Active EKG Documentation Completion [RC] ASDIRECTED Care 07/17/18 05:04 Active Intake and Output [RC] QSHIFT Care 07/16/18 14:10 Active Oxygen Therapy [RC] CONTINUOUS Care 07/16/18 14:10 Active Pulse Oximetry [RC] PRN Care 07/16/18 14:10 Active Up With Assistance [RC] ASDIRECTED Care 07/16/18 14:10 Active Vital Signs [RC] Q4H Care 07/16/18 14:10 Active Carbohydrate Counting [Consistent Carbohydrate Diet] [ Diet 07/16/18 Dinner Active DIET] CXR [Chest 2V] [CR] AM Exams 07/17/18 05:11 Ordered CDIFF TOXIN A+B GROUP [OP] Stat Lab 07/16/18 13:00 Received CULTURE BLOOD [BC] Urgent Lab 07/16/18 09:15 Received VANCOMYCIN TROUGH [CHEM] Timed Lab 07/19/18 09:30 Ordered Acetaminophen [Tylenol] Med 07/16/18 14:21 Active 650 mg PO Q4H PRN Ascorbic Acid [Vitamin C] Med 07/16/18 18:00 Active 500 mg PO WITHDINNER Bisacodyl [Dulcolax] Med 07/16/18 14:21 Active 10 mg RECTAL DAILY PRN Carboxymethylcellulose Sodium [Refresh Tears 0.5%] Med 07/16/18 18:00 Active 0 ml EYEBOTH BIDMEALS Cyanocobalamin (Vitamin B12) [Vitamin B12] Med 08/11/18 09:00 Active 1,000 mcg IM Q30D Docusate Sodium/Sennosides [Senna Plus] Med 07/16/18 18:00 Active 1 tab PO BIDMEALS Enoxaparin [Lovenox] Med 07/16/18 16:00 Active 30 mg SUBCUT Q24H Iron Polysaccharides Complex [Ferrex 150] Med 07/16/18 18:00 Active 150 mg PO BIDMEALS Magnesium Hydroxide [Milk of Magnesia] Med 07/16/18 14:21 Active 30 ml PO DAILY PRN Magnesium Oxide Med 07/16/18 21:00 Active 400 mg PO TID Multivitamins,Therapeutic [Thera] Med 07/17/18 09:00 Active 1 each PO DAILY Nystatin [Nystatin Crm] Med 07/16/18 21:00 Active 0 gm TOP BID Piperacillin/Tazobactam [Zosyn] 3.375 gm Med 07/16/18 16:00 Active Sodium Chloride 0.9% [Normal Saline] 50 ml IV Q6H Potassium Chloride [Klor-Con M20] Med 07/17/18 09:00 Active 20 meq PO DAILY Simvastatin [Zocor] Med 07/16/18 21:00 Active 40 mg PO BEDTIME Sodium Chloride 0.9% [Normal Saline] 1,000 ml Med 07/16/18 17:40 Active IV ASDIRECTED Sodium Chloride 0.9% [Saline Flush] Med 07/16/18 14:20 Active 10 ml FLUSH ASDIRECTED PRN Vancomycin 1 gm Med 07/17/18 10:00 Active Vancomycin 500 mg Sodium Chloride 0.9% [Normal Saline] 500 ml IV Q24H glipiZIDE [Glucotrol XL] Med 07/17/18 09:00 Active 10 mg PO DAILY metFORMIN [Glucophage] Med 07/16/18 18:00 Active 1,000 mg PO BIDMEALS metroNIDAZOLE/Normal Saline [Flagyl 500 MG in NS 100 ML Med 07/16/18 14:00 Active ] 500 mg Premix Bag 1 bag IV Q8H Convert IV to Saline Lock [OM.PC] Urgent Oth 07/17/18 06:44 Ordered Isolation [COMM] Stat Oth 07/16/18 13:55 Ordered SCD [Sequential Compression Device] [OM.PC] Routine Oth 07/16/18 14:19 Ordered Resuscitation Status Routine Resus Stat 07/16/18 12:05 Ordered EKG 12 Lead [EK] Routine Ther 07/16/18 08:52 Stop Req EKG 12 Lead [EK] Routine Ther 07/16/18 09:52 Stop Req EKG 12 Lead [EK] Routine Ther 07/17/18 04:18 Ordered EKG 12 Lead [EK] Routine Ther 07/17/18 04:45 Ordered Medication Orders Acetaminophen (Tylenol) 650 mg PO Q4H PRN PRN Reason: Pain/Fever Last Admin: 07/16/18 21:25 Dose: 650 mg Artificial Tears (Refresh Tears 0.5%) 0 ml EYEBOTH BIDMEALS [facility] Last Admin: 07/16/18 18:56 Dose: 1 drop Ascorbic Acid (Vitamin C) 500 mg PO WITHDINNER [facility] Last Admin: 07/16/18 18:56 Dose: 500 mg Bisacodyl (Dulcolax) 10 mg RECTAL DAILY PRN PRN Reason: Constipation Cyanocobalamin (Vitamin B12) 1,000 mcg IM Q30D [facility] Enoxaparin Sodium (Lovenox) 30 mg SUBCUT Q24H [facility] Last Admin: 07/16/18 15:27 Dose: 30 mg Glipizide (Glucotrol Xl) 10 mg PO DAILY [facility] Piperacillin Sod/Tazobactam (Sod 3.375 gm/ Sodium Chloride) 50 mls @ 100 mls/ hr IV Q6H [facility] Last Admin: 07/17/18 04:08 Dose: 100 mls/hr Admin: 07/16/18 22:36 Dose: 100 mls/hr Admin: 07/16/18 15:31 Dose: 100 mls/hr Metronidazole 500 mg/ Premix 100 mls @ 100 mls/hr IV Q8H [facility] Last Admin: 07/17/18 05:45 Dose: 100 mls/hr Infusion: 07/16/18 22:29 Dose: 100 mls/hr Admin: 07/16/18 21:29 Dose: 100 mls/hr Infusion: 07/16/18 15:23 Dose: 100 mls/hr Admin: 07/16/18 14:23 Dose: 100 mls/hr Sodium Chloride (Normal Saline) 1,000 mls @ 100 mls/hr IV ASDIRECTED [facility] Last Admin: 07/17/18 04:05 Dose: 100 mls/hr Infusion: 07/17/18 04:05 Dose: 100 mls/hr Admin: 07/16/18 18:57 Dose: 100 mls/hr Vancomycin HCl 1 gm/Vancomycin HCl 500 mg/ Sodium Chloride 500 mls @ 325 mls/ hr IV Q24H [facility] Magnesium Hydroxide (Milk Of Magnesia) 30 ml PO DAILY PRN PRN Reason: Constipation Magnesium Oxide (Magnesium Oxide) 400 mg PO TID [facility] Last Admin: 07/16/18 21:27 Dose: 400 mg Metformin HCl (Glucophage) 1,000 mg PO BIDMEALS [facility] Last Admin: 07/16/18 18:56 Dose: 1,000 mg Multivitamins (Thera) 1 each PO DAILY [facility] Nystatin (Nystatin Crm) 0 gm TOP BID [facility] Last Admin: 07/16/18 21:26 Dose: 1 applic Polysaccharide Iron Complex (Ferrex 150) 150 mg PO BIDMEALS [facility] Last Admin: 07/16/18 18:55 Dose: 150 mg Potassium Chloride (Klor-Con M20) 20 meq PO DAILY [facility] Senna/Docusate Sodium (Senna Plus) 1 tab PO BIDMEALS [facility] Last Admin: 07/16/18 18:56 Dose: 1 tab Simvastatin (Zocor) 40 mg PO BEDTIME [facility] Last Admin: 07/16/18 21:27 Dose: 40 mg Sodium Chloride (Saline Flush) 10 ml FLUSH ASDIRECTED PRN PRN Reason: flush med Assessment/Plan Comment:: I attest I saw this patient, interviewed and examined. I agree with the note.
[2018-07-16] MEDS ORDERED: Bisacodyl 10 MG Supp RECTAL PRN (14:21)
[2018-07-16] MEDS ORDERED: Magnesium Hydroxide 400 MG/5 ML Susp 30 ML Cup PO PRN (14:21)
[2018-07-16] MEDS: metroNIDAZOLE/Normal Saline 500 MG in Premix Bag 1 BAG IV SCH ×2 (14:23→21:29)
[2018-07-16] MEDS: Enoxaparin 30 MG/0.3 ML Syringe SUBCUT SCH (15:27)
[2018-07-16] MEDS: Piperacillin/Tazobactam 3.375 GM in Sodium Chloride 0.9% 50 ML IV SCH ×2 (15:31→22:36)
[2018-07-16] MEDS: Iron Polysaccharides Complex 150 MG Cap PO SCH (18:55)
[2018-07-16] MEDS: metFORMIN 1,000 MG Tab PO SCH (18:56)
[2018-07-16] MEDS: Carboxymethylcellulose Sodium 0.5% Ophth Soln 15 ML Bottle EYEBOTH SCH (18:56)
[2018-07-16] MEDS: Ascorbic Acid 500 MG Tab PO SCH (18:56)
[2018-07-16] MEDS: Sodium Chloride 0.9% 1,000 ML IV SCH (18:57)
[2018-07-16] MEDS: Acetaminophen 325 MG Tab PO PRN (21:25)
[2018-07-16] MEDS: Nystatin Crm 15 GM Tube TOP SCH (21:26)
[2018-07-16] MEDS: Simvastatin 40 MG Tab PO SCH (21:27)
[2018-07-16] MEDS: Magnesium Oxide 400 MG Tab PO SCH (21:27)
[2018-07-17] MEDS: Sodium Chloride 0.9% 1,000 ML IV SCH (04:05)
[2018-07-17] MEDS: Piperacillin/Tazobactam 3.375 GM in Sodium Chloride 0.9% 50 ML IV SCH ×3 (04:08→18:01)
[2018-07-17] MEDS: metroNIDAZOLE/Normal Saline 500 MG in Premix Bag 1 BAG IV SCH ×3 (05:45→21:23)
[2018-07-17] MEDS ORDERED: Furosemide 20 MG/2 ML VIAL IVPUSH ONE (06:25)
--- NOTE | 2018-07-17 08:21 | PN ---
DATE SEEN: 07/16/2018 This 88-year-old gentleman is seen at the request of Brunilda Gilliam after being admitted through the emergency room for recurrent pneumonia. He was in the hospital for the same problem a few weeks ago. 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 I was asked to evaluate him. I last saw him in the clinic 2 weeks ago. On exam, his ulcers are essentially unchanged. He does have some foul-smelling necrotic tissue at the base of each one. I did sharply trim this with the scissors. There is no cellulitis or evidence of infection. They will continue to keep these clean and dressed with gauze twice daily and keep any pressure off them. I will follow up with him in the clinic as necessary after discharge. /[id number] DIANE/PARI
[2018-07-17] MEDS: metFORMIN 1,000 MG Tab PO SCH ×2 (09:11→18:00)
[2018-07-17] MEDS: Carboxymethylcellulose Sodium 0.5% Ophth Soln 15 ML Bottle EYEBOTH SCH ×2 (09:11→18:00)
[2018-07-17] MEDS: Iron Polysaccharides Complex 150 MG Cap PO SCH ×2 (09:11→18:00)
[2018-07-17] MEDS: glipiZIDE 10 MG Tab.ER PO SCH (09:11)
[2018-07-17] MEDS: Magnesium Oxide 400 MG Tab PO SCH ×3 (09:12→20:26)
[2018-07-17] MEDS: Nystatin Crm 15 GM Tube TOP SCH ×2 (09:12→20:26)
[2018-07-17] MEDS: Potassium Chloride 20 MEQ Tab.ER PO SCH (09:12)
[2018-07-17] MEDS: Multivitamins,Therapeutic Tab PO SCH (09:13)
--- NOTE | 2018-07-17 09:51 | PCM.PN ---
<Brunilda Gilliam - Last Filed: 07/17/18 09:44> - General Info Date of Service: 07/17/18 Admission Dx/Problem (Free Text): Patient had two runs of tachycardia last night, no interventions required. Patient reports feeling well this morning. Functional Status: Reports: Pain Controlled - Review of Systems General: Reports: Fatigue HEENT: Reports: No Symptoms Pulmonary: Denies: Shortness of Breath, Cough Cardiovascular: Denies: Chest Pain, Palpitations Gastrointestinal: Reports: Diarrhea. Denies: Abdominal Pain, Constipation Genitourinary: Denies: Dysuria, Hematuria Skin: Reports: No Symptoms Neurological: Reports: Difficulty Walking (ulcer to heels bilaterally) - Patient Data Vitals - Most Recent: Last Vital Signs Temp 37.2 C 07/17/18 05:12 Pulse 84 07/17/18 05:14 Resp 20 07/17/18 05:12 BP 107/69 07/17/18 05:14 Pulse Ox 97 07/17/18 04:01 Weight - Most Recent: 233 lb 7 oz I&O - Last 24 Hours: Intake & Output 07/16/18 07/17/18 07/17/18 22:59 06:59 14:59 Intake Total 2836 Balance 2836 Lab Results Last 24 Hours: Laboratory Results - last 24 hr 07/16/18 07/16/18 07/16/18 Range/Units 08:58 09:15 09:15 WBC 11.6 (4.5-12.0) X10-3/uL RBC 3.80 L (4.30-5.75) x10(6)uL Hgb 9.6 L (13.5-17.8) g/dL Hct 31.5 (30.0-51.3) % MCV 82.9 (80-96) fL MCH 25.3 L (27.7-33.6) pg MCHC 30.5 L (32.2-35.4) g/dL RDW 18.9 H (11.5-15.5) % Plt Count 241 (125-369) X10(3)uL MPV (7.4-10.4) fL Neut % (Auto) 76.9 (46-82) % Lymph % (Auto) 10.1 L (13-37) % [place] % (Auto) 11.6 (4-12) % Eos % (Auto) 1 (1.0-5.0) % Baso % (Auto) 0 (0-2) % Neut # (Auto) 9.0 H (1.6-8.3) # Lymph # (Auto) 1.2 (0.6-5.0) # [place] # (Auto) 1.4 H (0.0-1.3) # Eos # (Auto) 0.1 (0.0-0.8) # Baso # (Auto) 0.1 (0.0-0.2) # PT 10.4 (8.7-11.1) INR 1.07 (0.89-1.13) POC VBG pH (7.31-7.41) POC VBG pCO2 (41-51) mmHG POC VBG HCO3 (23-28) mmol/L POC VBG Total CO2 (24-29) mmol/L POC VBG Base Excess (-2-3) mmol/L Sodium (135-145) mmol/L Potassium (3.5-5.3) mmol/L Chloride (100-110) mmol/L Carbon Dioxide (21-32) mmol/L BUN (7-18) mg/dL Creatinine (0.70-1.30) mg/dL Est Cr Clr Drug Dosing mL/min Estimated GFR (MDRD) (>60) BUN/Creatinine Ratio (9-20) Glucose (80-116) mg/dL POC Glucose 204 H D (80-116) mg/dL Lactic Acid (0.4-2.2) mmol/L Calcium (8.6-10.2) mg/dL Magnesium (1.8-2.5) mg/dL Total Bilirubin (0.1-1.3) mg/dL AST (5-25) IU/L ALT (12-36) U/L Alkaline Phosphatase (56-112) IU/L Troponin I (<0.017-0.056) ng/mL C-Reactive Protein (0.5-0.9) mg/dL NT-Pro-B Natriuret Pep (<=450) pg/mL Total Protein (6.0-8.0) g/dL Albumin (3.2-4.6) g/dL Globulin g/dL Albumin/Globulin Ratio Urine Color (YELLOW) Urine Appearance (CLEAR) Urine pH (5.0-6.5) Ur Specific [place] (1.010-1.025) Urine Protein (NEGATIVE) mg/dL Urine Glucose (UA) (NORMAL) mg/dL Urine Ketones (NEGATIVE) mg/dL Urine Occult Blood (NEGATIVE) Urine Nitrite (NEGATIVE) Urine Bilirubin (NEGATIVE) Urine Urobilinogen (NEGATIVE) mg/dL Ur Leukocyte Esterase (NEGATIVE) Urine WBC (0-5) Ur Squamous Epith Cells (NS,R,O) Urine Bacteria (NS) 07/16/18 07/16/18 07/16/18 Range/Units 09:15 09:15 09:15 WBC (4.5-12.0) X10-3/uL RBC (4.30-5.75) x10(6)uL Hgb (13.5-17.8) g/dL Hct (30.0-51.3) % MCV (80-96) fL MCH (27.7-33.6) pg MCHC (32.2-35.4) g/dL RDW (11.5-15.5) % Plt Count (125-369) X10(3)uL MPV (7.4-10.4) fL Neut % (Auto) (46-82) % Lymph % (Auto) (13-37) % [place] % (Auto) (4-12) % Eos % (Auto) (1.0-5.0) % Baso % (Auto) (0-2) % Neut # (Auto) (1.6-8.3) # Lymph # (Auto) (0.6-5.0) # [place] # (Auto) (0.0-1.3) # Eos # (Auto) (0.0-0.8) # Baso # (Auto) (0.0-0.2) # PT (8.7-11.1) INR (0.89-1.13) POC VBG pH (7.31-7.41) POC VBG pCO2 (41-51) mmHG POC VBG HCO3 (23-28) mmol/L POC VBG Total CO2 (24-29) mmol/L POC VBG Base Excess (-2-3) mmol/L Sodium 139 (135-145) mmol/L Potassium 4.6 (3.5-5.3) mmol/L Chloride 98 L (100-110) mmol/L Carbon Dioxide 31 (21-32) mmol/L BUN 30 H (7-18) mg/dL Creatinine 1.4 H (0.70-1.30) mg/dL Est Cr Clr Drug Dosing 41.22 mL/min Estimated GFR (MDRD) 48 L (>60) BUN/Creatinine Ratio 21.4 H (9-20) Glucose 185 H (80-116) mg/dL POC Glucose (80-116) mg/dL Lactic Acid 1.6 (0.4-2.2) mmol/L Calcium 9.4 (8.6-10.2) mg/dL Magnesium (1.8-2.5) mg/dL Total Bilirubin 0.6 (0.1-1.3) mg/dL AST 15 D (5-25) IU/L ALT 14 D (12-36) U/L Alkaline Phosphatase 32 L (56-112) IU/L Troponin I < 0.017 L (<0.017-0.056) ng/mL C-Reactive Protein (0.5-0.9) mg/dL NT-Pro-B Natriuret Pep (<=450) pg/mL Total Protein 7.6 (6.0-8.0) g/dL Albumin 2.4 L (3.2-4.6) g/dL Globulin 5.2 g/dL Albumin/Globulin Ratio 0.5 Urine Color (YELLOW) Urine Appearance (CLEAR) Urine pH (5.0-6.5) Ur Specific [place] (1.010-1.025) Urine Protein (NEGATIVE) mg/dL Urine Glucose (UA) (NORMAL) mg/dL Urine Ketones (NEGATIVE) mg/dL Urine Occult Blood (NEGATIVE) Urine Nitrite (NEGATIVE) Urine Bilirubin (NEGATIVE) Urine Urobilinogen (NEGATIVE) mg/dL Ur Leukocyte Esterase (NEGATIVE) Urine WBC (0-5) Ur Squamous Epith Cells (NS,R,O) Urine Bacteria (NS) 07/16/18 07/16/18 07/16/18 Range/Units 09:15 09:15 09:15 WBC (4.5-12.0) X10-3/uL RBC (4.30-5.75) x10(6)uL Hgb (13.5-17.8) g/dL Hct (30.0-51.3) % MCV (80-96) fL MCH (27.7-33.6) pg MCHC (32.2-35.4) g/dL RDW (11.5-15.5) % Plt Count (125-369) X10(3)uL MPV (7.4-10.4) fL Neut % (Auto) (46-82) % Lymph % (Auto) (13-37) % [place] % (Auto) (4-12) % Eos % (Auto) (1.0-5.0) % Baso % (Auto) (0-2) % Neut # (Auto) (1.6-8.3) # Lymph # (Auto) (0.6-5.0) # [place] # (Auto) (0.0-1.3) # Eos # (Auto) (0.0-0.8) # Baso # (Auto) (0.0-0.2) # PT (8.7-11.1) INR (0.89-1.13) POC VBG pH (7.31-7.41) POC VBG pCO2 (41-51) mmHG POC VBG HCO3 (23-28) mmol/L POC VBG Total CO2 (24-29) mmol/L POC VBG Base Excess (-2-3) mmol/L Sodium (135-145) mmol/L Potassium (3.5-5.3) mmol/L Chloride (100-110) mmol/L Carbon Dioxide (21-32) mmol/L BUN (7-18) mg/dL Creatinine (0.70-1.30) mg/dL Est Cr Clr Drug Dosing mL/min Estimated GFR (MDRD) (>60) BUN/Creatinine Ratio (9-20) Glucose (80-116) mg/dL POC Glucose (80-116) mg/dL Lactic Acid (0.4-2.2) mmol/L Calcium (8.6-10.2) mg/dL Magnesium 2.5 (1.8-2.5) mg/dL Total Bilirubin (0.1-1.3) mg/dL AST (5-25) IU/L ALT (12-36) U/L Alkaline Phosphatase (56-112) IU/L Troponin I (<0.017-0.056) ng/mL C-Reactive Protein 16.5 H* (0.5-0.9) mg/dL NT-Pro-B Natriuret Pep 1008 H* (<=450) pg/mL Total Protein (6.0-8.0) g/dL Albumin (3.2-4.6) g/dL Globulin g/dL Albumin/Globulin Ratio Urine Color (YELLOW) Urine Appearance (CLEAR) Urine pH (5.0-6.5) Ur Specific [place] (1.010-1.025) Urine Protein (NEGATIVE) mg/dL Urine Glucose (UA) (NORMAL) mg/dL Urine Ketones (NEGATIVE) mg/dL Urine Occult Blood (NEGATIVE) Urine Nitrite (NEGATIVE) Urine Bilirubin (NEGATIVE) Urine Urobilinogen (NEGATIVE) mg/dL Ur Leukocyte Esterase (NEGATIVE) Urine WBC (0-5) Ur Squamous Epith Cells (NS,R,O) Urine Bacteria (NS) 07/16/18 07/16/18 07/16/18 Range/Units 09:40 11:03 18:52 WBC (4.5-12.0) X10-3/uL RBC (4.30-5.75) x10(6)uL Hgb (13.5-17.8) g/dL Hct (30.0-51.3) % MCV (80-96) fL MCH (27.7-33.6) pg MCHC (32.2-35.4) g/dL RDW (11.5-15.5) % Plt Count (125-369) X10(3)uL MPV (7.4-10.4) fL Neut % (Auto) (46-82) % Lymph % (Auto) (13-37) % [place] % (Auto) (4-12) % Eos % (Auto) (1.0-5.0) % Baso % (Auto) (0-2) % Neut # (Auto) (1.6-8.3) # Lymph # (Auto) (0.6-5.0) # [place] # (Auto) (0.0-1.3) # Eos # (Auto) (0.0-0.8) # Baso # (Auto) (0.0-0.2) # PT (8.7-11.1) INR (0.89-1.13) POC VBG pH 7.39 (7.31-7.41) POC VBG pCO2 52.6 H (41-51) mmHG POC VBG HCO3 31.6 H (23-28) mmol/L POC VBG Total CO2 33 H (24-29) mmol/L POC VBG Base Excess 7 H (-2-3) mmol/L Sodium (135-145) mmol/L Potassium (3.5-5.3) mmol/L Chloride (100-110) mmol/L Carbon Dioxide (21-32) mmol/L BUN (7-18) mg/dL Creatinine (0.70-1.30) mg/dL Est Cr Clr Drug Dosing mL/min Estimated GFR (MDRD) (>60) BUN/Creatinine Ratio (9-20) Glucose (80-116) mg/dL POC Glucose 221 H (80-116) mg/dL Lactic Acid (0.4-2.2) mmol/L Calcium (8.6-10.2) mg/dL Magnesium (1.8-2.5) mg/dL Total Bilirubin (0.1-1.3) mg/dL AST (5-25) IU/L ALT (12-36) U/L Alkaline Phosphatase (56-112) IU/L Troponin I (<0.017-0.056) ng/mL C-Reactive Protein (0.5-0.9) mg/dL NT-Pro-B Natriuret Pep (<=450) pg/mL Total Protein (6.0-8.0) g/dL Albumin (3.2-4.6) g/dL Globulin g/dL Albumin/Globulin Ratio Urine Color Yellow (YELLOW) Urine Appearance Clear (CLEAR) Urine pH 7.0 H (5.0-6.5) Ur Specific [place] 1.010 (1.010-1.025) Urine Protein Negative (NEGATIVE) mg/dL Urine Glucose (UA) Normal (NORMAL) mg/dL Urine Ketones Negative (NEGATIVE) mg/dL Urine Occult Blood Negative (NEGATIVE) Urine Nitrite Negative (NEGATIVE) Urine Bilirubin Negative (NEGATIVE) Urine Urobilinogen Normal (NEGATIVE) mg/dL Ur Leukocyte Esterase Negative (NEGATIVE) Urine WBC 0-5 (0-5) Ur Squamous Epith Cells Few H (NS,R,O) Urine Bacteria Few H (NS) 07/17/18 07/17/18 07/17/18 Range/Units 05:40 05:40 05:40 WBC 9.5 (4.5-12.0) X10-3/uL RBC 3.75 L (4.30-5.75) x10(6)uL Hgb 9.4 L (13.5-17.8) g/dL Hct 30.3 (30.0-51.3) % MCV 80.8 (80-96) fL MCH 25.1 L (27.7-33.6) pg MCHC 31.1 L (32.2-35.4) g/dL RDW 20.2 H (11.5-15.5) % Plt Count 186 (125-369) X10(3)uL MPV 8.5 (7.4-10.4) fL Neut % (Auto) 72.9 (46-82) % Lymph % (Auto) 11.4 L (13-37) % [place] % (Auto) 13.8 H (4-12) % Eos % (Auto) 1 (1.0-5.0) % Baso % (Auto) 1 (0-2) % Neut # (Auto) 6.9 (1.6-8.3) # Lymph # (Auto) 1.1 (0.6-5.0) # [place] # (Auto) 1.3 (0.0-1.3) # Eos # (Auto) 0.1 (0.0-0.8) # Baso # (Auto) 0.0 (0.0-0.2) # PT (8.7-11.1) INR (0.89-1.13) POC VBG pH (7.31-7.41) POC VBG pCO2 (41-51) mmHG POC VBG HCO3 (23-28) mmol/L POC VBG Total CO2 (24-29) mmol/L POC VBG Base Excess (-2-3) mmol/L Sodium 139 (135-145) mmol/L Potassium 4.3 (3.5-5.3) mmol/L Chloride 101 (100-110) mmol/L Carbon Dioxide 27 (21-32) mmol/L BUN 31 H (7-18) mg/dL Creatinine 1.7 H (0.70-1.30) mg/dL Est Cr Clr Drug Dosing 33.94 mL/min Estimated GFR (MDRD) 38 L (>60) BUN/Creatinine Ratio 18.2 (9-20) Glucose 132 H (80-116) mg/dL POC Glucose (80-116) mg/dL Lactic Acid (0.4-2.2) mmol/L Calcium 8.8 (8.6-10.2) mg/dL Magnesium 2.5 (1.8-2.5) mg/dL Total Bilirubin 0.7 (0.1-1.3) mg/dL AST 29 H D (5-25) IU/L ALT 40 H D (12-36) U/L Alkaline Phosphatase 37 L (56-112) IU/L Troponin I (<0.017-0.056) ng/mL C-Reactive Protein (0.5-0.9) mg/dL NT-Pro-B Natriuret Pep (<=450) pg/mL Total Protein 6.9 (6.0-8.0) g/dL Albumin 2.2 L (3.2-4.6) g/dL Globulin 4.7 g/dL Albumin/Globulin Ratio 0.5 Urine Color (YELLOW) Urine Appearance (CLEAR) Urine pH (5.0-6.5) Ur Specific [place] (1.010-1.025) Urine Protein (NEGATIVE) mg/dL Urine Glucose (UA) (NORMAL) mg/dL Urine Ketones (NEGATIVE) mg/dL Urine Occult Blood (NEGATIVE) Urine Nitrite (NEGATIVE) Urine Bilirubin (NEGATIVE) Urine Urobilinogen (NEGATIVE) mg/dL Ur Leukocyte Esterase (NEGATIVE) Urine WBC (0-5) Ur Squamous Epith Cells (NS,R,O) Urine Bacteria (NS) Alex Results Last 24 Hours: Microbiology 07/16/18 09:15 Aerobic Blood Culture - Preliminary Blood - Venous - Lab Draw NO GROWTH AFTER 1 DAY Anaerobic Blood Culture - Preliminary NO GROWTH AFTER 1 DAY Med Orders - Current: Current Medications Acetaminophen (Tylenol) 650 mg PO Q4H PRN PRN Reason: Pain/Fever Last Admin: 07/16/18 21:25 Dose: 650 mg Artificial Tears (Refresh Tears 0.5%) 0 ml EYEBOTH BIDMEALS [facility] Last Admin: 07/17/18 09:11 Dose: 1 drop Ascorbic Acid (Vitamin C) 500 mg PO WITHDINNER [facility] Last Admin: 07/16/18 18:56 Dose: 500 mg Bisacodyl (Dulcolax) 10 mg RECTAL DAILY PRN PRN Reason: Constipation Cyanocobalamin (Vitamin B12) 1,000 mcg IM Q30D [facility] Enoxaparin Sodium (Lovenox) 30 mg SUBCUT Q24H [facility] Last Admin: 07/16/18 15:27 Dose: 30 mg Glipizide (Glucotrol Xl) 10 mg PO DAILY [facility] Last Admin: 07/17/18 09:11 Dose: 10 mg Piperacillin Sod/Tazobactam (Sod 3.375 gm/ Sodium Chloride) 50 mls @ 100 mls/ hr IV Q6H [facility] Last Admin: 07/17/18 04:08 Dose: 100 mls/hr Metronidazole 500 mg/ Premix 100 mls @ 100 mls/hr IV Q8H [facility] Last Admin: 07/17/18 05:45 Dose: 100 mls/hr Sodium Chloride (Normal Saline) 1,000 mls @ 100 mls/hr IV ASDIRECTED [facility] Last Admin: 07/17/18 04:05 Dose: 100 mls/hr Vancomycin HCl 1 gm/Vancomycin HCl 500 mg/ Sodium Chloride 500 mls @ 325 mls/ hr IV Q24H [facility] Magnesium Hydroxide (Milk Of Magnesia) 30 ml PO DAILY PRN PRN Reason: Constipation Magnesium Oxide (Magnesium Oxide) 400 mg PO TID [facility] Last Admin: 07/17/18 09:12 Dose: 400 mg Metformin HCl (Glucophage) 1,000 mg PO BIDMEALS [facility] Last Admin: 07/17/18 09:11 Dose: 1,000 mg Multivitamins (Thera) 1 each PO DAILY [facility] Last Admin: 07/17/18 09:13 Dose: 1 each Nystatin (Nystatin Crm) 0 gm TOP BID [facility] Last Admin: 07/17/18 09:12 Dose: 1 applic Polysaccharide Iron Complex (Ferrex 150) 150 mg PO BIDMEALS [facility] Last Admin: 07/17/18 09:11 Dose: 150 mg Potassium Chloride (Klor-Con M20) 20 meq PO DAILY [facility] Last Admin: 07/17/18 09:12 Dose: 20 meq Senna/Docusate Sodium (Senna Plus) 1 tab PO BIDMEALS [facility] Last Admin: 07/17/18 09:11 Dose: 1 tab Simvastatin (Zocor) 40 mg PO BEDTIME [facility] Last Admin: 07/16/18 21:27 Dose: 40 mg Sodium Chloride (Saline Flush) 10 ml FLUSH ASDIRECTED PRN PRN Reason: flush med Vancomycin HCl (Pharmacy To Dose - Vancomycin) 1 dose .XX ASDIRECTED [facility] Discontinued Medications Furosemide (Lasix) 10 mg IVPUSH NOW ONE Stop: 07/17/18 06:26 Last Admin: 07/17/18 06:44 Dose: 10 mg Magnesium Sulfate 2 gm/ Premix 50 mls @ 150 mls/hr IV ONETIME ONE Stop: 07/16/18 09:13 Last Admin: 07/16/18 09:12 Dose: 150 mls/hr Sodium Chloride (Normal Saline) 1,000 mls @ 999 mls/hr IV .BOLUS ONE Stop: 07/16/18 10:00 Last Admin: 07/16/18 08:56 Dose: 999 mls/hr Piperacillin Sod/Tazobactam (Sod 4.5 gm/ Sodium Chloride) 100 mls @ 200 mls/hr IV STAT [facility] Last Admin: 07/16/18 09:35 Dose: 200 mls/hr Vancomycin HCl 2 gm/ Sodium (Chloride) 500 mls @ 250 mls/hr IV ONETIME ONE Stop: 07/16/18 11:59 Last Admin: 07/16/18 10:12 Dose: 250 mls/hr Sodium Chloride (Normal Saline) 1,000 mls @ 100 mls/hr IV ASDIRECTED [facility] Last Infusion: 07/16/18 10:37 Dose: 10 mls/hr Metronidazole 500 mg/ Premix 100 mls @ 100 mls/hr IV Q8H [facility] Sodium Chloride (Normal Saline) 1,000 mls @ 75 mls/hr IV ASDIRECTED [facility] Last Admin: 07/16/18 15:26 Dose: 75 mls/hr Sodium Chloride (Normal Saline) 1,000 ml IV NOW STA Stop: 07/16/18 08:53 Last Admin: 07/16/18 09:14 Dose: Not Given - Exam Quality Assessment: Supplemental Oxygen General: Alert, Oriented Neck: Supple, Trachea Midline Lungs: Clear to Auscultation, Normal Respiratory Effort Cardiovascular: Regular Rate, Regular Rhythm GI/Abdominal Exam: Normal Bowel Sounds, Soft, Non-Tender, No Distention Extremities: No Pedal Edema Skin: Warm, Dry, Other (decubitus ulcers to heels bilaterally, no drainage) Psy/Mental Status: Alert, Normal Affect, Normal Mood - Problem List & Annotations (1) Pneumonia SNOMED Code(s): 696718077 Code(s): J18.9 - PNEUMONIA, UNSPECIFIED ORGANISM Status: Acute Current Visit: Yes (2) Palliative care patient SNOMED Code(s): 127471402 Code(s): Z51.5 - ENCOUNTER FOR PALLIATIVE CARE Status: Acute Current Visit: Yes (3) NAOMI (acute kidney injury) SNOMED Code(s): 64989268, 89731811 Code(s): N17.9 - ACUTE KIDNEY FAILURE, UNSPECIFIED Status: Acute Current Visit: Yes (4) Diabetes type 2, controlled SNOMED Code(s): 79225680, 530550003 Code(s): E11.9 - TYPE 2 DIABETES MELLITUS WITHOUT COMPLICATIONS Status: Acute Current Visit: Yes Qualifiers: Diabetes mellitus buttermaker continuous churn insulin use: without shelter use (5) Iron deficiency anemia SNOMED Code(s): 06014784 Code(s): D50.9 - IRON DEFICIENCY ANEMIA, UNSPECIFIED Status: Acute Current Visit: Yes (6) Dehydration SNOMED Code(s): 76052260 Code(s): E86.0 - DEHYDRATION Status: Acute Current Visit: Yes (7) Palliative care status SNOMED Code(s): 814587447 Code(s): Z51.5 - ENCOUNTER FOR PALLIATIVE CARE Status: Acute Current Visit: No (8) Decubitus skin ulcer SNOMED Code(s): 453358408 Code(s): L89.90 - PRESSURE ULCER OF UNSPECIFIED SITE, UNSPECIFIED STAGE Status: Acute Current Visit: Yes - Problem List Review Problem List Initiated/Reviewed/Updated: Yes - My Orders Last 24 Hours: My Active Orders 07/17/18 09:26 Up With Assistance [RC] ASDIRECTED OT Evaluation and Treatment [CONS] Routine PT Evaluation and Treatment [CONS] Routine 07/18/18 05:11 CBC W/O DIFF,HEMOGRAM [HEME] AM COMPREHENSIVE METABOLIC PN,CMP [CHEM] AM - Plan Plan:: 1. DNR/DNI 2. Up with assistance, PT/OT consulted 3. Diabetic diet 4. Stool sent for C. Diff, results pending, continue precautions 5. Continue antibiotics 6. Repeat CXR today 7. Decubitus ulcer treatment per Surgery 8. DVT prophylaxis with Lovenox <Anurag Feliz - Last Filed: 07/18/18 07:15> - Patient Data Vitals - Most Recent: Last Vital Signs Temp 99.1 F 07/18/18 04:33 Pulse 145 H 07/18/18 04:33 Resp 18 07/18/18 04:33 BP 88/61 L 07/18/18 04:33 Pulse Ox 98 07/18/18 04:33 I&O - Last 24 Hours: Intake & Output 07/17/18 07/18/18 07/18/18 22:59 06:59 14:59 Intake Total 1100 100 Balance 1100 100 Lab Results Last 24 Hours: Laboratory Results - last 24 hr 07/17/18 07/18/18 07/18/18 Range/Units 16:56 06:15 06:15 WBC 8.4 (4.5-12.0) X10-3/uL RBC 3.14 L (4.30-5.75) x10(6)uL Hgb 8.1 L (13.5-17.8) g/dL Hct 25.3 L (30.0-51.3) % MCV 80.4 (80-96) fL MCH 25.7 L (27.7-33.6) pg MCHC 31.9 L (32.2-35.4) g/dL RDW 19.2 H (11.5-15.5) % Plt Count 194 (125-369) X10(3)uL Sodium 141 (135-145) mmol/L Potassium 4.0 (3.5-5.3) mmol/L Chloride 104 (100-110) mmol/L Carbon Dioxide 30 (21-32) mmol/L BUN 24 H (7-18) mg/dL Creatinine 1.5 H (0.70-1.30) mg/dL Est Cr Clr Drug Dosing 38.47 mL/min Estimated GFR (MDRD) 44 L (>60) BUN/Creatinine Ratio 16.0 (9-20) Glucose 170 H (80-116) mg/dL POC Glucose 215 H (80-116) mg/dL Calcium 8.6 (8.6-10.2) mg/dL Total Bilirubin 0.5 (0.1-1.3) mg/dL AST 14 D (5-25) IU/L ALT 10 L D (12-36) U/L Alkaline Phosphatase 28 L (56-112) IU/L Total Protein 6.6 (6.0-8.0) g/dL Albumin 1.9 L (3.2-4.6) g/dL Globulin 4.7 g/dL Albumin/Globulin Ratio 0.4 Alex Results Last 24 Hours: Microbiology 07/16/18 13:00 Clostridium difficile Toxin A & B - Final Bowel 07/16/18 09:15 Aerobic Blood Culture - Preliminary Blood - Venous - Lab Draw NO GROWTH AFTER 1 DAY Anaerobic Blood Culture - Preliminary NO GROWTH AFTER 1 DAY Med Orders - Current: Current Medications Acetaminophen (Tylenol) 650 mg PO Q4H PRN PRN Reason: Pain/Fever Last Admin: 07/18/18 04:33 Dose: 650 mg Artificial Tears (Refresh Tears 0.5%) 0 ml EYEBOTH BIDMEALS [facility] Last Admin: 07/17/18 18:00 Dose: 1 drop Ascorbic Acid (Vitamin C) 500 mg PO WITHDINNER [facility] Last Admin: 07/17/18 18:00 Dose: 500 mg Bisacodyl (Dulcolax) 10 mg RECTAL DAILY PRN PRN Reason: Constipation Cyanocobalamin (Vitamin B12) 1,000 mcg IM Q30D [facility] Enoxaparin Sodium (Lovenox) 30 mg SUBCUT Q24H [facility] Last Admin: 07/17/18 15:49 Dose: 30 mg Glipizide (Glucotrol Xl) 10 mg PO DAILY [facility] Last Admin: 07/17/18 09:11 Dose: 10 mg Metronidazole 500 mg/ Premix 100 mls @ 100 mls/hr IV Q8H [facility] Last Admin: 07/18/18 06:34 Dose: 100 mls/hr Sodium Chloride (Normal Saline) 1,000 mls @ 100 mls/hr IV ASDIRECTED [facility] Last Admin: 07/17/18 04:05 Dose: 100 mls/hr Vancomycin HCl 1 gm/Vancomycin HCl 500 mg/ Sodium Chloride 500 mls @ 325 mls/ hr IV Q24H [facility] Last Admin: 07/17/18 10:31 Dose: 325 mls/hr Piperacillin Sod/Tazobactam (Sod 3.375 gm/ Sodium Chloride) 50 mls @ 100 mls/ hr IV Q6H [facility] Last Admin: 07/18/18 06:00 Dose: 100 mls/hr Magnesium Hydroxide (Milk Of Magnesia) 30 ml PO DAILY PRN PRN Reason: Constipation Magnesium Oxide (Magnesium Oxide) 400 mg PO TID [facility] Last Admin: 07/17/18 20:26 Dose: 400 mg Metformin HCl (Glucophage) 1,000 mg PO BIDMEALS [facility] Last Admin: 07/17/18 18:00 Dose: 1,000 mg Multivitamins (Thera) 1 each PO DAILY [facility] Last Admin: 07/17/18 09:13 Dose: 1 each Nystatin (Nystatin Crm) 0 gm TOP BID [facility] Last Admin: 07/17/18 20:26 Dose: 1 applic Polysaccharide Iron Complex (Ferrex 150) 150 mg PO BIDMEALS [facility] Last Admin: 07/17/18 18:00 Dose: 150 mg Potassium Chloride (Klor-Con M20) 20 meq PO DAILY [facility] Last Admin: 07/17/18 09:12 Dose: 20 meq Senna/Docusate Sodium (Senna Plus) 1 tab PO BIDMEALS [facility] Last Admin: 07/17/18 18:00 Dose: 1 tab Simvastatin (Zocor) 40 mg PO BEDTIME [facility] Last Admin: 07/17/18 20:27 Dose: 40 mg Sodium Chloride (Saline Flush) 10 ml FLUSH ASDIRECTED PRN PRN Reason: flush med Last Admin: 07/18/18 06:00 Dose: 10 ml Vancomycin HCl (Pharmacy To Dose - Vancomycin) 1 dose .XX ASDIRECTED [facility] Discontinued Medications Furosemide (Lasix) 10 mg IVPUSH NOW ONE Stop: 07/17/18 06:26 Last Admin: 07/17/18 06:44 Dose: 10 mg Magnesium Sulfate 2 gm/ Premix 50 mls @ 150 mls/hr IV ONETIME ONE Stop: 07/16/18 09:13 Last Admin: 07/16/18 09:12 Dose: 150 mls/hr Sodium Chloride (Normal Saline) 1,000 mls @ 999 mls/hr IV .BOLUS ONE Stop: 07/16/18 10:00 Last Admin: 07/16/18 08:56 Dose: 999 mls/hr Piperacillin Sod/Tazobactam (Sod 4.5 gm/ Sodium Chloride) 100 mls @ 200 mls/hr IV STAT [facility] Last Admin: 07/16/18 09:35 Dose: 200 mls/hr Vancomycin HCl 2 gm/ Sodium (Chloride) 500 mls @ 250 mls/hr IV ONETIME ONE Stop: 07/16/18 11:59 Last Admin: 07/16/18 10:12 Dose: 250 mls/hr Sodium Chloride (Normal Saline) 1,000 mls @ 100 mls/hr IV ASDIRECTED [facility] Last Infusion: 07/16/18 10:37 Dose: 10 mls/hr Metronidazole 500 mg/ Premix 100 mls @ 100 mls/hr IV Q8H [facility] Piperacillin Sod/Tazobactam (Sod 3.375 gm/ Sodium Chloride) 50 mls @ 100 mls/ hr IV Q6H [facility] Stop: 07/17/18 12:00 Last Admin: 07/17/18 10:05 Dose: 100 mls/hr Sodium Chloride (Normal Saline) 1,000 mls @ 75 mls/hr IV ASDIRECTED [facility] Last Admin: 07/16/18 15:26 Dose: 75 mls/hr Sodium Chloride (Normal Saline) 1,000 ml IV NOW STA Stop: 07/16/18 08:53 Last Admin: 07/16/18 09:14 Dose: Not Given - My Orders Last 24 Hours: My Active Orders 07/17/18 09:00 Multivitamins,Therapeutic [Thera] 1 each PO DAILY Potassium Chloride [Klor-Con M20] 20 meq PO DAILY glipiZIDE [Glucotrol XL] 10 mg PO DAILY 07/17/18 09:45 Pharmacy to Dose - Vancomycin 1 dose .XX ASDIRECTED 07/17/18 10:00 Vancomycin 1 gm Vancomycin 500 mg Sodium Chloride 0.9% [Normal Saline] 500 ml IV Q24H 07/17/18 11:30 EKG Documentation Completion [RC] .PRN EKG 12 Lead [EK] Routine 07/19/18 09:30 VANCOMYCIN TROUGH [CHEM] Timed 08/11/18 09:00 Cyanocobalamin (Vitamin B12) [Vitamin B12] 1,000 mcg IM Q30D - Plan Plan:: I attest saw the patient, examined the patient and agree with the assessment
[2018-07-17] MEDS: Vancomycin 1 GM, Vancomycin 500 MG in Sodium Chloride 0.9% 500 ML IV SCH (10:31)
--- NOTE | 2018-07-17 10:33 | CR ---
INDICATION: Cough. CHEST: An AP upright view of the chest was obtained, 07/17/18, and compared with 07/16/18 and 06/28/18. Overlying EKG leads are still visualized. The heart is again difficult to evaluate, due to the poor inspiration, and may be at the upper limits of normal in size. The aorta is tortuous and calcified. The pulmonary vasculature appears to be somewhat more prominent than on the previous study and congested in appearance, raising question of recurrent CHF. There remains infiltrate in the right mid lung field and left lung base, which may be on the basis of recurrent pneumonia and/or lung edema and should be correlated clinically. No other significant interval change was identified. IMPRESSION: Findings suggest increasing pulmonary vascular congestion with continued bilateral infiltration. MTDD
[2018-07-17] MEDS: Enoxaparin 30 MG/0.3 ML Syringe SUBCUT SCH (15:49)
[2018-07-17] MEDS: Sodium Chloride 0.9% 10 ML Syringe FLUSH PRN ×3 (16:01→22:22)
[2018-07-17] MEDS: Ascorbic Acid 500 MG Tab PO SCH (18:00)
[2018-07-17] MEDS: Simvastatin 40 MG Tab PO SCH (20:27)
[2018-07-17] MEDS: Acetaminophen 325 MG Tab PO PRN (20:28)
[2018-07-18] MEDS: Piperacillin/Tazobactam 3.375 GM in Sodium Chloride 0.9% 50 ML IV SCH ×4 (00:37→18:01)
[2018-07-18] MEDS: Sodium Chloride 0.9% 10 ML Syringe FLUSH PRN ×5 (00:38→21:24)
[2018-07-18] MEDS: Acetaminophen 325 MG Tab PO PRN ×2 (04:33→21:16)
[2018-07-18] MEDS: metroNIDAZOLE/Normal Saline 500 MG in Premix Bag 1 BAG IV SCH ×3 (06:34→21:14)
[2018-07-18] MEDS: Carboxymethylcellulose Sodium 0.5% Ophth Soln 15 ML Bottle EYEBOTH SCH ×2 (07:36→18:01)
[2018-07-18] MEDS: metFORMIN 1,000 MG Tab PO SCH ×2 (07:36→18:00)
[2018-07-18] MEDS: Iron Polysaccharides Complex 150 MG Cap PO SCH ×2 (07:36→18:00)
[2018-07-18] MEDS: glipiZIDE 10 MG Tab.ER PO SCH (08:49)
[2018-07-18] MEDS: Nystatin Crm 15 GM Tube TOP SCH ×2 (08:49→21:12)
[2018-07-18] MEDS: Magnesium Oxide 400 MG Tab PO SCH ×3 (08:49→21:13)
[2018-07-18] MEDS: Potassium Chloride 20 MEQ Tab.ER PO SCH (08:49)
[2018-07-18] MEDS: Multivitamins,Therapeutic Tab PO SCH (08:50)
--- NOTE | 2018-07-18 09:21 | PCM.PN ---
<Brunilda Gilliam - Last Filed: 07/18/18 09:14> - General Info Date of Service: 07/18/18 Admission Dx/Problem (Free Text): Patient had more asymptomatic tachycardia overnight per nurse. Maximum temperature of 101. Otherwise no acute events Functional Status: Reports: Pain Controlled - Review of Systems General: Reports: Weakness, Fatigue HEENT: Reports: No Symptoms Pulmonary: Denies: Shortness of Breath, Cough Cardiovascular: Denies: Chest Pain, Palpitations Gastrointestinal: Reports: Diarrhea. Denies: Abdominal Pain, Constipation, Nausea, Vomiting Genitourinary: Reports: No Symptoms Musculoskeletal: Reports: No Symptoms Skin: Reports: No Symptoms - Patient Data Vitals - Most Recent: Last Vital Signs Temp 37.3 C 07/18/18 04:33 Pulse 145 H 07/18/18 04:33 Resp 18 07/18/18 04:33 BP 88/61 L 07/18/18 04:33 Pulse Ox 98 07/18/18 04:33 Weight - Most Recent: 233 lb 7 oz I&O - Last 24 Hours: Intake & Output 07/17/18 07/18/18 07/18/18 22:59 06:59 14:59 Intake Total 1100 100 Balance 1100 100 Lab Results Last 24 Hours: Laboratory Results - last 24 hr 07/17/18 07/18/18 07/18/18 Range/Units 16:56 06:15 06:15 WBC 8.4 (4.5-12.0) X10-3/uL RBC 3.14 L (4.30-5.75) x10(6)uL Hgb 8.1 L (13.5-17.8) g/dL Hct 25.3 L (30.0-51.3) % MCV 80.4 (80-96) fL MCH 25.7 L (27.7-33.6) pg MCHC 31.9 L (32.2-35.4) g/dL RDW 19.2 H (11.5-15.5) % Plt Count 194 (125-369) X10(3)uL Sodium 141 (135-145) mmol/L Potassium 4.0 (3.5-5.3) mmol/L Chloride 104 (100-110) mmol/L Carbon Dioxide 30 (21-32) mmol/L BUN 24 H (7-18) mg/dL Creatinine 1.5 H (0.70-1.30) mg/dL Est Cr Clr Drug Dosing 38.47 mL/min Estimated GFR (MDRD) 44 L (>60) BUN/Creatinine Ratio 16.0 (9-20) Glucose 170 H (80-116) mg/dL POC Glucose 215 H (80-116) mg/dL Calcium 8.6 (8.6-10.2) mg/dL Total Bilirubin 0.5 (0.1-1.3) mg/dL AST 14 D (5-25) IU/L ALT 10 L D (12-36) U/L Alkaline Phosphatase 28 L (56-112) IU/L Total Protein 6.6 (6.0-8.0) g/dL Albumin 1.9 L (3.2-4.6) g/dL Globulin 4.7 g/dL Albumin/Globulin Ratio 0.4 Alex Results Last 24 Hours: Microbiology 07/16/18 13:00 Clostridium difficile Toxin A & B - Final Bowel 07/16/18 09:15 Aerobic Blood Culture - Preliminary Blood - Venous - Lab Draw NO GROWTH AFTER 1 DAY Anaerobic Blood Culture - Preliminary NO GROWTH AFTER 1 DAY Med Orders - Current: Current Medications Acetaminophen (Tylenol) 650 mg PO Q4H PRN PRN Reason: Pain/Fever Last Admin: 07/18/18 04:33 Dose: 650 mg Artificial Tears (Refresh Tears 0.5%) 0 ml EYEBOTH BIDMEALS [facility] Last Admin: 07/18/18 07:36 Dose: 1 drop Ascorbic Acid (Vitamin C) 500 mg PO WITHDINNER [facility] Last Admin: 07/17/18 18:00 Dose: 500 mg Bisacodyl (Dulcolax) 10 mg RECTAL DAILY PRN PRN Reason: Constipation Cyanocobalamin (Vitamin B12) 1,000 mcg IM Q30D [facility] Enoxaparin Sodium (Lovenox) 30 mg SUBCUT Q24H [facility] Last Admin: 07/17/18 15:49 Dose: 30 mg Glipizide (Glucotrol Xl) 10 mg PO DAILY [facility] Last Admin: 07/18/18 08:49 Dose: 10 mg Metronidazole 500 mg/ Premix 100 mls @ 100 mls/hr IV Q8H [facility] Last Admin: 07/18/18 06:34 Dose: 100 mls/hr Sodium Chloride (Normal Saline) 1,000 mls @ 100 mls/hr IV ASDIRECTED [facility] Last Admin: 07/17/18 04:05 Dose: 100 mls/hr Vancomycin HCl 1 gm/Vancomycin HCl 500 mg/ Sodium Chloride 500 mls @ 325 mls/ hr IV Q24H [facility] Last Admin: 07/17/18 10:31 Dose: 325 mls/hr Piperacillin Sod/Tazobactam (Sod 3.375 gm/ Sodium Chloride) 50 mls @ 100 mls/ hr IV Q6H [facility] Last Admin: 07/18/18 06:00 Dose: 100 mls/hr Magnesium Hydroxide (Milk Of Magnesia) 30 ml PO DAILY PRN PRN Reason: Constipation Magnesium Oxide (Magnesium Oxide) 400 mg PO TID [facility] Last Admin: 07/18/18 08:49 Dose: 400 mg Metformin HCl (Glucophage) 1,000 mg PO BIDMEALS [facility] Last Admin: 07/18/18 07:36 Dose: 1,000 mg Multivitamins (Thera) 1 each PO DAILY [facility] Last Admin: 07/18/18 08:50 Dose: 1 each Nystatin (Nystatin Crm) 0 gm TOP BID [facility] Last Admin: 07/18/18 08:49 Dose: 15 gram Polysaccharide Iron Complex (Ferrex 150) 150 mg PO BIDMEALS [facility] Last Admin: 07/18/18 07:36 Dose: 150 mg Potassium Chloride (Klor-Con M20) 20 meq PO DAILY [facility] Last Admin: 07/18/18 08:49 Dose: 20 meq Senna/Docusate Sodium (Senna Plus) 1 tab PO BIDMEALS [facility] Last Admin: 07/18/18 07:36 Dose: 1 tab Simvastatin (Zocor) 40 mg PO BEDTIME [facility] Last Admin: 07/17/18 20:27 Dose: 40 mg Sodium Chloride (Saline Flush) 10 ml FLUSH ASDIRECTED PRN PRN Reason: flush med Last Admin: 07/18/18 06:00 Dose: 10 ml Vancomycin HCl (Pharmacy To Dose - Vancomycin) 1 dose .XX ASDIRECTED [facility] Discontinued Medications Furosemide (Lasix) 10 mg IVPUSH NOW ONE Stop: 07/17/18 06:26 Last Admin: 07/17/18 06:44 Dose: 10 mg Magnesium Sulfate 2 gm/ Premix 50 mls @ 150 mls/hr IV ONETIME ONE Stop: 07/16/18 09:13 Last Admin: 07/16/18 09:12 Dose: 150 mls/hr Sodium Chloride (Normal Saline) 1,000 mls @ 999 mls/hr IV .BOLUS ONE Stop: 07/16/18 10:00 Last Admin: 07/16/18 08:56 Dose: 999 mls/hr Piperacillin Sod/Tazobactam (Sod 4.5 gm/ Sodium Chloride) 100 mls @ 200 mls/hr IV STAT [facility] Last Admin: 07/16/18 09:35 Dose: 200 mls/hr Vancomycin HCl 2 gm/ Sodium (Chloride) 500 mls @ 250 mls/hr IV ONETIME ONE Stop: 07/16/18 11:59 Last Admin: 07/16/18 10:12 Dose: 250 mls/hr Sodium Chloride (Normal Saline) 1,000 mls @ 100 mls/hr IV ASDIRECTED [facility] Last Infusion: 07/16/18 10:37 Dose: 10 mls/hr Metronidazole 500 mg/ Premix 100 mls @ 100 mls/hr IV Q8H [facility] Piperacillin Sod/Tazobactam (Sod 3.375 gm/ Sodium Chloride) 50 mls @ 100 mls/ hr IV Q6H [facility] Stop: 07/17/18 12:00 Last Admin: 07/17/18 10:05 Dose: 100 mls/hr Sodium Chloride (Normal Saline) 1,000 mls @ 75 mls/hr IV ASDIRECTED [facility] Last Admin: 07/16/18 15:26 Dose: 75 mls/hr Sodium Chloride (Normal Saline) 1,000 ml IV NOW STA Stop: 07/16/18 08:53 Last Admin: 07/16/18 09:14 Dose: Not Given - Exam Quality Assessment: Supplemental Oxygen General: Alert, Oriented Neck: Supple, Trachea Midline Lungs: Clear to Auscultation, Normal Respiratory Effort Cardiovascular: Regular Rate, Regular Rhythm GI/Abdominal Exam: Normal Bowel Sounds, Soft, Non-Tender, No Organomegaly, No Distention Extremities: Normal Inspection, No Pedal Edema - Problem List & Annotations (1) Pneumonia SNOMED Code(s): 920234420 Code(s): J18.9 - PNEUMONIA, UNSPECIFIED ORGANISM Status: Acute Current Visit: Yes (2) Palliative care patient SNOMED Code(s): 143925686 Code(s): Z51.5 - ENCOUNTER FOR PALLIATIVE CARE Status: Acute Current Visit: Yes (3) NAOMI (acute kidney injury) SNOMED Code(s): 28090543, 09260612 Code(s): N17.9 - ACUTE KIDNEY FAILURE, UNSPECIFIED Status: Acute Current Visit: Yes (4) Diabetes type 2, controlled SNOMED Code(s): 91404362, 348731706 Code(s): E11.9 - TYPE 2 DIABETES MELLITUS WITHOUT COMPLICATIONS Status: Acute Current Visit: Yes Qualifiers: Diabetes mellitus care home insulin use: without care home use (5) Iron deficiency anemia SNOMED Code(s): 61365625 Code(s): D50.9 - IRON DEFICIENCY ANEMIA, UNSPECIFIED Status: Acute Current Visit: Yes (6) Dehydration SNOMED Code(s): 36384994 Code(s): E86.0 - DEHYDRATION Status: Acute Current Visit: Yes (7) Palliative care status SNOMED Code(s): 301733739 Code(s): Z51.5 - ENCOUNTER FOR PALLIATIVE CARE Status: Acute Current Visit: No (8) Decubitus skin ulcer SNOMED Code(s): 788664164 Code(s): L89.90 - PRESSURE ULCER OF UNSPECIFIED SITE, UNSPECIFIED STAGE Status: Acute Current Visit: Yes - Problem List Review Problem List Initiated/Reviewed/Updated: Yes - My Orders Last 24 Hours: My Active Orders 07/17/18 09:26 Up With Assistance [RC] ASDIRECTED OT Evaluation and Treatment [CONS] Routine PT Evaluation and Treatment [CONS] Routine - Plan Plan:: 1. DNR/DNI 2. Diabetic diet 3. Up with assist 4. XRAY calcaneus, rule out of osteomyelitis 5. 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 C.diff negative 7. Discontinue telemetry, after discussion with patient and POA (Danyel Andrews, ). Both in agreement not to do anything because blood pressure is low and anything we add will further drop this. <Anurag Feliz - Last Filed: 07/18/18 13:27> - Patient Data Vitals - Most Recent: Last Vital Signs Temp 98.8 F 07/18/18 09:16 Pulse 89 07/18/18 09:16 Resp 20 07/18/18 09:16 BP 115/66 07/18/18 09:16 Pulse Ox 99 07/18/18 09:16 I&O - Last 24 Hours: Intake & Output 07/17/18 07/18/18 07/18/18 22:59 06:59 14:59 Intake Total 1100 100 Balance 1100 100 Lab Results Last 24 Hours: Laboratory Results - last 24 hr 07/17/18 07/18/18 07/18/18 Range/Units 16:56 06:15 06:15 WBC 8.4 (4.5-12.0) X10-3/uL RBC 3.14 L (4.30-5.75) x10(6)uL Hgb 8.1 L (13.5-17.8) g/dL Hct 25.3 L (30.0-51.3) % MCV 80.4 (80-96) fL MCH 25.7 L (27.7-33.6) pg MCHC 31.9 L (32.2-35.4) g/dL RDW 19.2 H (11.5-15.5) % Plt Count 194 (125-369) X10(3)uL Sodium 141 (135-145) mmol/L Potassium 4.0 (3.5-5.3) mmol/L Chloride 104 (100-110) mmol/L Carbon Dioxide 30 (21-32) mmol/L BUN 24 H (7-18) mg/dL Creatinine 1.5 H (0.70-1.30) mg/dL Est Cr Clr Drug Dosing 38.47 mL/min Estimated GFR (MDRD) 44 L (>60) BUN/Creatinine Ratio 16.0 (9-20) Glucose 170 H (80-116) mg/dL POC Glucose 215 H (80-116) mg/dL Calcium 8.6 (8.6-10.2) mg/dL Total Bilirubin 0.5 (0.1-1.3) mg/dL AST 14 D (5-25) IU/L ALT 10 L D (12-36) U/L Alkaline Phosphatase 28 L (56-112) IU/L Total Protein 6.6 (6.0-8.0) g/dL Albumin 1.9 L (3.2-4.6) g/dL Globulin 4.7 g/dL Albumin/Globulin Ratio 0.4 Alex Results Last 24 Hours: Microbiology 07/16/18 09:15 Aerobic Blood Culture - Preliminary Blood - Venous - Lab Draw NO GROWTH AFTER 2 DAYS Anaerobic Blood Culture - Preliminary NO GROWTH AFTER 2 DAYS 07/16/18 13:00 Clostridium difficile Toxin A & B - Final Bowel Med Orders - Current: Current Medications Acetaminophen (Tylenol) 650 mg PO Q4H PRN PRN Reason: Pain/Fever Last Admin: 07/18/18 04:33 Dose: 650 mg Artificial Tears (Refresh Tears 0.5%) 0 ml EYEBOTH BIDMEALS [facility] Last Admin: 07/18/18 07:36 Dose: 1 drop Ascorbic Acid (Vitamin C) 500 mg PO WITHDINNER [facility] Last Admin: 07/17/18 18:00 Dose: 500 mg Bisacodyl (Dulcolax) 10 mg RECTAL DAILY PRN PRN Reason: Constipation Cyanocobalamin (Vitamin B12) 1,000 mcg IM Q30D [facility] Enoxaparin Sodium (Lovenox) 30 mg SUBCUT Q24H [facility] Last Admin: 07/17/18 15:49 Dose: 30 mg Glipizide (Glucotrol Xl) 10 mg PO DAILY [facility] Last Admin: 07/18/18 08:49 Dose: 10 mg Metronidazole 500 mg/ Premix 100 mls @ 100 mls/hr IV Q8H [facility] Last Admin: 07/18/18 06:34 Dose: 100 mls/hr Sodium Chloride (Normal Saline) 1,000 mls @ 100 mls/hr IV ASDIRECTED [facility] Last Admin: 07/17/18 04:05 Dose: 100 mls/hr Vancomycin HCl 1 gm/Vancomycin HCl 500 mg/ Sodium Chloride 500 mls @ 325 mls/ hr IV Q24H [facility] Last Admin: 07/18/18 11:03 Dose: 325 mls/hr Piperacillin Sod/Tazobactam (Sod 3.375 gm/ Sodium Chloride) 50 mls @ 100 mls/ hr IV Q6H [facility] Last Admin: 07/18/18 12:57 Dose: 100 mls/hr Magnesium Hydroxide (Milk Of Magnesia) 30 ml PO DAILY PRN PRN Reason: Constipation Magnesium Oxide (Magnesium Oxide) 400 mg PO TID [facility] Last Admin: 07/18/18 08:49 Dose: 400 mg Metformin HCl (Glucophage) 1,000 mg PO BIDMEALS [facility] Last Admin: 07/18/18 07:36 Dose: 1,000 mg Multivitamins (Thera) 1 each PO DAILY [facility] Last Admin: 07/18/18 08:50 Dose: 1 each Nystatin (Nystatin Crm) 0 gm TOP BID [facility] Last Admin: 07/18/18 08:49 Dose: 15 gram Polysaccharide Iron Complex (Ferrex 150) 150 mg PO BIDMEALS [facility] Last Admin: 07/18/18 07:36 Dose: 150 mg Potassium Chloride (Klor-Con M20) 20 meq PO DAILY [facility] Last Admin: 07/18/18 08:49 Dose: 20 meq Senna/Docusate Sodium (Senna Plus) 1 tab PO BIDMEALS [facility] Last Admin: 07/18/18 07:36 Dose: 1 tab Simvastatin (Zocor) 40 mg PO BEDTIME [facility] Last Admin: 07/17/18 20:27 Dose: 40 mg Sodium Chloride (Saline Flush) 10 ml FLUSH ASDIRECTED PRN PRN Reason: flush med Last Admin: 07/18/18 06:00 Dose: 10 ml Vancomycin HCl (Pharmacy To Dose - Vancomycin) 1 dose .XX ASDIRECTED [facility] Discontinued Medications Furosemide (Lasix) 10 mg IVPUSH NOW ONE Stop: 07/17/18 06:26 Last Admin: 07/17/18 06:44 Dose: 10 mg Magnesium Sulfate 2 gm/ Premix 50 mls @ 150 mls/hr IV ONETIME ONE Stop: 07/16/18 09:13 Last Admin: 07/16/18 09:12 Dose: 150 mls/hr Sodium Chloride (Normal Saline) 1,000 mls @ 999 mls/hr IV .BOLUS ONE Stop: 07/16/18 10:00 Last Admin: 07/16/18 08:56 Dose: 999 mls/hr Piperacillin Sod/Tazobactam (Sod 4.5 gm/ Sodium Chloride) 100 mls @ 200 mls/hr IV STAT [facility] Last Admin: 07/16/18 09:35 Dose: 200 mls/hr Vancomycin HCl 2 gm/ Sodium (Chloride) 500 mls @ 250 mls/hr IV ONETIME ONE Stop: 07/16/18 11:59 Last Admin: 07/16/18 10:12 Dose: 250 mls/hr Sodium Chloride (Normal Saline) 1,000 mls @ 100 mls/hr IV ASDIRECTED [facility] Last Infusion: 07/16/18 10:37 Dose: 10 mls/hr Metronidazole 500 mg/ Premix 100 mls @ 100 mls/hr IV Q8H [facility] Piperacillin Sod/Tazobactam (Sod 3.375 gm/ Sodium Chloride) 50 mls @ 100 mls/ hr IV Q6H [facility] Stop: 07/17/18 12:00 Last Admin: 07/17/18 10:05 Dose: 100 mls/hr Sodium Chloride (Normal Saline) 1,000 mls @ 75 mls/hr IV ASDIRECTED [facility] Last Admin: 07/16/18 15:26 Dose: 75 mls/hr Sodium Chloride (Normal Saline) 1,000 ml IV NOW STA Stop: 07/16/18 08:53 Last Admin: 07/16/18 09:14 Dose: Not Given - My Orders Last 24 Hours: My Active Orders 07/18/18 09:10 Calcaneous Bi [CR] Routine 07/19/18 09:30 VANCOMYCIN TROUGH [CHEM] Timed 08/11/18 09:00 Cyanocobalamin (Vitamin B12) [Vitamin B12] 1,000 mcg IM Q30D - Plan Plan:: I attest I saw this patient and examined the patient. Agree with the note and plan
[2018-07-18] MEDS: Vancomycin 1 GM, Vancomycin 500 MG in Sodium Chloride 0.9% 500 ML IV SCH (11:03)
[2018-07-18] MEDS: Enoxaparin 30 MG/0.3 ML Syringe SUBCUT SCH (15:37)
[2018-07-18] MEDS: Ascorbic Acid 500 MG Tab PO SCH (18:01)
[2018-07-18] MEDS: Simvastatin 40 MG Tab PO SCH (21:13)
[2018-07-19] MEDS: Piperacillin/Tazobactam 3.375 GM in Sodium Chloride 0.9% 50 ML IV SCH ×4 (00:01→17:56)
[2018-07-19] MEDS: Sodium Chloride 0.9% 10 ML Syringe FLUSH PRN ×3 (00:17→05:13)
[2018-07-19] MEDS: metroNIDAZOLE/Normal Saline 500 MG in Premix Bag 1 BAG IV SCH (05:46)
--- NOTE | 2018-07-19 09:27 | PCM.PN ---
- General Info Date of Service: 07/19/18 Subjective Update: Complaints of loose stools recorded by the nurses. Mr. Crowder still needing oxygen at 2 L. He has no chest pain. Temperature maximum was 99.1. Functional Status: Reports: Pain Controlled - Review of Systems Pulmonary: Reports: Cough Cardiovascular: Reports: No Symptoms Gastrointestinal: Reports: Diarrhea Genitourinary: Reports: No Symptoms Musculoskeletal: Reports: No Symptoms Skin: Reports: No Symptoms - Patient Data Vitals - Most Recent: Last Vital Signs Temp 99.1 F 07/19/18 01:00 Pulse 88 07/19/18 05:00 Resp 20 07/19/18 05:00 BP 110/62 07/19/18 05:00 Pulse Ox 93 L 07/19/18 05:00 Weight - Most Recent: 105.885 kg I&O - Last 24 Hours: Intake & Output 07/18/18 07/19/18 07/19/18 22:59 06:59 14:59 Intake Total 100 200 Balance 100 200 Lab Results Last 24 Hours: Laboratory Results - last 24 hr 07/18/18 07/19/18 Range/Units 17:54 07:53 POC Glucose 188 H 131 H (80-116) mg/dL Alex Results Last 24 Hours: Microbiology 07/16/18 09:15 Aerobic Blood Culture - Preliminary Blood - Venous - Lab Draw NO GROWTH AFTER 2 DAYS Anaerobic Blood Culture - Preliminary NO GROWTH AFTER 2 DAYS Med Orders - Current: Current Medications Acetaminophen (Tylenol) 650 mg PO Q4H PRN PRN Reason: Pain/Fever Last Admin: 07/18/18 21:16 Dose: 650 mg Artificial Tears (Refresh Tears 0.5%) 0 ml EYEBOTH BIDMEALS [facility] Last Admin: 07/18/18 18:01 Dose: 1 drop Ascorbic Acid (Vitamin C) 500 mg PO WITHDINNER [facility] Last Admin: 07/18/18 18:01 Dose: 500 mg Bisacodyl (Dulcolax) 10 mg RECTAL DAILY PRN PRN Reason: Constipation Cyanocobalamin (Vitamin B12) 1,000 mcg IM Q30D [facility] Enoxaparin Sodium (Lovenox) 30 mg SUBCUT Q24H [facility] Last Admin: 07/18/18 15:37 Dose: 30 mg Furosemide (Lasix) 10 mg IVPUSH DAILY [facility] Glipizide (Glucotrol Xl) 10 mg PO DAILY [facility] Last Admin: 07/18/18 08:49 Dose: 10 mg Sodium Chloride (Normal Saline) 1,000 mls @ 100 mls/hr IV ASDIRECTED [facility] Last Admin: 07/17/18 04:05 Dose: 100 mls/hr Vancomycin HCl 1 gm/Vancomycin HCl 500 mg/ Sodium Chloride 500 mls @ 325 mls/ hr IV Q24H [facility] Last Admin: 07/18/18 11:03 Dose: 325 mls/hr Piperacillin Sod/Tazobactam (Sod 3.375 gm/ Sodium Chloride) 50 mls @ 100 mls/ hr IV Q6H [facility] Last Admin: 07/19/18 05:12 Dose: 100 mls/hr Levofloxacin/Dextrose 250 mg/ (Premix) 50 mls @ 50 mls/hr IV Q24H [facility] Magnesium Hydroxide (Milk Of Magnesia) 30 ml PO DAILY PRN PRN Reason: Constipation Magnesium Oxide (Magnesium Oxide) 400 mg PO TID [facility] Last Admin: 07/18/18 21:13 Dose: 400 mg Metformin HCl (Glucophage) 1,000 mg PO BIDMEALS [facility] Last Admin: 07/18/18 18:00 Dose: 1,000 mg Multivitamins (Thera) 1 each PO DAILY [facility] Last Admin: 07/18/18 08:50 Dose: 1 each Nystatin (Nystatin Crm) 0 gm TOP BID [facility] Last Admin: 07/18/18 21:12 Dose: 15 gram Polysaccharide Iron Complex (Ferrex 150) 150 mg PO BIDMEALS [facility] Last Admin: 07/18/18 18:00 Dose: 150 mg Potassium Chloride (Klor-Con M20) 20 meq PO DAILY [facility] Last Admin: 07/18/18 08:49 Dose: 20 meq Simvastatin (Zocor) 40 mg PO BEDTIME [facility] Last Admin: 07/18/18 21:13 Dose: 40 mg Sodium Chloride (Saline Flush) 10 ml FLUSH ASDIRECTED PRN PRN Reason: flush med Last Admin: 07/19/18 05:13 Dose: 10 ml Vancomycin HCl (Pharmacy To Dose - Vancomycin) 1 dose .XX ASDIRECTED [facility] Discontinued Medications Furosemide (Lasix) 10 mg IVPUSH NOW ONE Stop: 07/17/18 06:26 Last Admin: 07/17/18 06:44 Dose: 10 mg Magnesium Sulfate 2 gm/ Premix 50 mls @ 150 mls/hr IV ONETIME ONE Stop: 07/16/18 09:13 Last Admin: 07/16/18 09:12 Dose: 150 mls/hr Sodium Chloride (Normal Saline) 1,000 mls @ 999 mls/hr IV .BOLUS ONE Stop: 07/16/18 10:00 Last Admin: 07/16/18 08:56 Dose: 999 mls/hr Piperacillin Sod/Tazobactam (Sod 4.5 gm/ Sodium Chloride) 100 mls @ 200 mls/hr IV STAT [facility] Last Admin: 07/16/18 09:35 Dose: 200 mls/hr Vancomycin HCl 2 gm/ Sodium (Chloride) 500 mls @ 250 mls/hr IV ONETIME ONE Stop: 07/16/18 11:59 Last Admin: 07/16/18 10:12 Dose: 250 mls/hr Sodium Chloride (Normal Saline) 1,000 mls @ 100 mls/hr IV ASDIRECTED [facility] Last Infusion: 07/16/18 10:37 Dose: 10 mls/hr Metronidazole 500 mg/ Premix 100 mls @ 100 mls/hr IV Q8H [facility] Piperacillin Sod/Tazobactam (Sod 3.375 gm/ Sodium Chloride) 50 mls @ 100 mls/ hr IV Q6H [facility] Stop: 07/17/18 12:00 Last Admin: 07/17/18 10:05 Dose: 100 mls/hr Metronidazole 500 mg/ Premix 100 mls @ 100 mls/hr IV Q8H [facility] Last Admin: 07/19/18 05:46 Dose: 100 mls/hr Sodium Chloride (Normal Saline) 1,000 mls @ 75 mls/hr IV ASDIRECTED [facility] Last Admin: 07/16/18 15:26 Dose: 75 mls/hr Senna/Docusate Sodium (Senna Plus) 1 tab PO BIDMEALS [facility] Last Admin: 07/18/18 18:01 Dose: 1 tab Sodium Chloride (Normal Saline) 1,000 ml IV NOW STA Stop: 07/16/18 08:53 Last Admin: 07/16/18 09:14 Dose: Not Given - Exam Quality Assessment: Supplemental Oxygen General: Alert HEENT: Pupils Equal Lungs: Crackles, Rales Cardiovascular: Regular Rate GI/Abdominal Exam: Normal Bowel Sounds (Male) Exam: No Hernia Extremities: No: Pedal Edema - Problem List & Annotations (1) Pneumonia SNOMED Code(s): 494506837 Code(s): J18.9 - PNEUMONIA, UNSPECIFIED ORGANISM Status: Acute Current Visit: Yes (2) Diarrhea SNOMED Code(s): 92116151 Code(s): R19.7 - DIARRHEA, UNSPECIFIED Status: Acute Current Visit: Yes Qualifiers: Diarrhea type: unspecified type Qualified Code(s): R19.7 - Diarrhea, unspecified (3) CHF (congestive heart failure) SNOMED Code(s): 61767261 Code(s): I50.9 - HEART FAILURE, UNSPECIFIED Status: Acute Current Visit: Yes Qualifiers: Heart failure chronicity: chronic (4) Decubitus skin ulcer SNOMED Code(s): 535881796 Code(s): L89.90 - PRESSURE ULCER OF UNSPECIFIED SITE, UNSPECIFIED STAGE Status: Acute Current Visit: Yes Qualifiers: Pressure injury location: sacral region (5) Diabetes type 2, controlled SNOMED Code(s): 37650963, 242960140 Code(s): E11.9 - TYPE 2 DIABETES MELLITUS WITHOUT COMPLICATIONS Status: Chronic Current Visit: Yes Qualifiers: Diabetes mellitus ad terminal makeup operator insulin use: without ad terminal makeup operator use (6) Hypomagnesemia SNOMED Code(s): 250908698 Code(s): E83.42 - HYPOMAGNESEMIA Status: Acute Current Visit: No - Problem List Review Problem List Initiated/Reviewed/Updated: Yes - My Orders Last 24 Hours: My Active Orders 07/19/18 08:40 Chest 2V [CR] Routine Echo Comp wo Cont [US] Routine 07/19/18 08:45 Levofloxacin/Dextrose 5%-Water [Levaquin in D5W 250 MG/50 ML] 250 mg Premix Bag 1 bag IV Q24H 07/19/18 09:00 Furosemide [Lasix] 10 mg IVPUSH DAILY 07/20/18 05:11 CBC WITH AUTO DIFF [HEME] AM COMPREHENSIVE METABOLIC PN,CMP [CHEM] AM PRO B-TYPE NATRIUR PEPT,BNPPRO [CHEM] DAILY 07/21/18 05:11 PRO B-TYPE NATRIUR PEPT,BNPPRO [CHEM] DAILY 07/22/18 05:11 PRO B-TYPE NATRIUR PEPT,BNPPRO [CHEM] DAILY - Plan Plan:: I will repeat some labs today,include BNP, and a CXR.I recommend Levaquin in place of Flagyl. I will also get an ECHO,but I have chosen to start slow diuresis in the meantime.
[2018-07-19] MEDS: metFORMIN 1,000 MG Tab PO SCH ×2 (09:29→17:44)
[2018-07-19] MEDS: Iron Polysaccharides Complex 150 MG Cap PO SCH ×2 (09:29→17:43)
[2018-07-19] MEDS: Potassium Chloride 20 MEQ Tab.ER PO SCH (09:30)
[2018-07-19] MEDS: Carboxymethylcellulose Sodium 0.5% Ophth Soln 15 ML Bottle EYEBOTH SCH ×2 (09:30→17:43)
[2018-07-19] MEDS: glipiZIDE 10 MG Tab.ER PO SCH (09:30)
[2018-07-19] MEDS: Nystatin Crm 15 GM Tube TOP SCH (09:31)
[2018-07-19] MEDS: Furosemide 20 MG/2 ML VIAL IVPUSH SCH (09:31)
[2018-07-19] MEDS: Magnesium Oxide 400 MG Tab PO SCH ×3 (09:31→20:18)
[2018-07-19] MEDS: Multivitamins,Therapeutic Tab PO SCH (09:32)
[2018-07-19] MEDS: Levofloxacin/Dextrose 5%-Water 250 MG in Premix Bag 1 BAG IV SCH (09:36)
[2018-07-19] MEDS: Vancomycin 1 GM, Vancomycin 500 MG in Sodium Chloride 0.9% 500 ML IV SCH (10:37)
[2018-07-19] MEDS: Saccharomyces Boulardii (Probiotic) 250 MG Cap PO SCH ×2 (10:51→20:17)
--- NOTE | 2018-07-19 11:28 | CR ---
INDICATION: Chronic heel ulcers, question osteomyelitis. BILATERAL CALCANEUS: Posterior tangential and lateral views of the calcanei were obtained 07/18/18 - no comparisons. Along the posterior aspect of the left calcaneus, there is some erosion and decreased bone density. The possibility of osteomyelitis at that site is difficult to exclude. It is marked by an arrow. Plantar calcaneal spur is also noted on the left of small size. Extensive pedal artery calcifications are noted. Degenerative changes are noted at the ankle mortise on the right of moderate degree. Subtalar joints are not well seen on the right, appearing relatively normal on the left. IMPRESSION: 1. Cannot exclude an area of osteomyelitis posterior calcaneus on the left. 2. Heel spur plantar aspect left calcaneus. 3. ASD. 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 MTDD
--- NOTE | 2018-07-19 14:48 | CR ---
INDICATION: Followup pneumonia. CHEST: A portable AP upright view of the chest 07/19/18 was compared with 01/23 and 07/16/18, again revealing bilateral infiltration compatible with pneumonia. Pulmonary vascular congestion appears to be somewhat less prominent than on the previous study. No other change or new acute process was seen. A large fixed hiatal hernia is noted. The aorta is tortuous and calcified in the arch, as previously. IMPRESSION: There may be slightly decreased pulmonary vascular congestion with appearance of continued bilateral patchy infiltration right mid lung field and left lower lung field and to a lesser extent mid lung field on the left. These latter areas may represent patchy pneumonia and/or fibrosis. 2. Diminished pulmonary vascular congestion. 3. ASHD with probable cardiomegaly. 4. Large fixed hiatal hernia. MTDD
[2018-07-19] MEDS: Enoxaparin 30 MG/0.3 ML Syringe SUBCUT SCH (16:48)
[2018-07-19] MEDS: Ascorbic Acid 500 MG Tab PO SCH (17:43)
[2018-07-19] MEDS: Simvastatin 40 MG Tab PO SCH (20:18)
[2018-07-19] MEDS: Nystatin Crm 30 GM Tube TOP SCH (20:20)
[2018-07-20] MEDS: Piperacillin/Tazobactam 3.375 GM in Sodium Chloride 0.9% 50 ML IV SCH ×5 (00:52→23:34)
[2018-07-20] MEDS: Sodium Chloride 0.9% 10 ML Syringe FLUSH PRN ×3 (01:32→17:59)
[2018-07-20] MEDS: Levofloxacin/Dextrose 5%-Water 250 MG in Premix Bag 1 BAG IV SCH (08:18)
[2018-07-20] MEDS: Iron Polysaccharides Complex 150 MG Cap PO SCH ×2 (08:24→17:36)
[2018-07-20] MEDS: metFORMIN 1,000 MG Tab PO SCH ×2 (08:24→17:37)
[2018-07-20] MEDS: Carboxymethylcellulose Sodium 0.5% Ophth Soln 15 ML Bottle EYEBOTH SCH ×2 (08:25→17:37)
[2018-07-20] MEDS: Potassium Chloride 20 MEQ Tab.ER PO SCH (08:25)
[2018-07-20] MEDS: Saccharomyces Boulardii (Probiotic) 250 MG Cap PO SCH ×2 (08:25→20:12)
[2018-07-20] MEDS: glipiZIDE 10 MG Tab.ER PO SCH (08:25)
[2018-07-20] MEDS: Furosemide 20 MG/2 ML VIAL IVPUSH SCH (08:26)
[2018-07-20] MEDS: Nystatin Crm 30 GM Tube TOP SCH ×2 (08:27→20:12)
[2018-07-20] MEDS: Magnesium Oxide 400 MG Tab PO SCH ×3 (08:27→20:12)
[2018-07-20] MEDS: Multivitamins,Therapeutic Tab PO SCH (08:28)
--- NOTE | 2018-07-20 09:20 | PCM.PN ---
- General Info Date of Service: 07/20/18 Subjective Update: Doing ok. No more fever. Functional Status: Reports: Pain Controlled - Review of Systems General: Reports: No Symptoms HEENT: Reports: No Symptoms Cardiovascular: Reports: No Symptoms Gastrointestinal: Reports: No Symptoms - Patient Data Vitals - Most Recent: Last Vital Signs Temp 98.3 F 07/20/18 04:00 Pulse 84 07/20/18 04:00 Resp 12 07/20/18 04:00 BP 106/62 07/20/18 04:00 Pulse Ox 98 07/20/18 04:00 Weight - Most Recent: 105.885 kg I&O - Last 24 Hours: Intake & Output 07/19/18 07/20/18 07/20/18 22:59 06:59 14:59 Intake Total 120 150 Balance 120 150 Lab Results Last 24 Hours: Laboratory Results - last 24 hr 07/19/18 07/19/18 07/20/18 Range/Units 09:30 16:52 06:25 WBC 8.0 (4.5-12.0) X10-3/uL RBC 3.22 L (4.30-5.75) x10(6)uL Hgb 8.1 L (13.5-17.8) g/dL Hct 25.8 L (30.0-51.3) % MCV 80.1 (80-96) fL MCH 25.1 L (27.7-33.6) pg MCHC 31.4 L (32.2-35.4) g/dL RDW 19.6 H (11.5-15.5) % Plt Count 210 (125-369) X10(3)uL MPV 7.9 (7.4-10.4) fL Neut % (Auto) 75.3 (46-82) % Lymph % (Auto) 10.5 L (13-37) % [place] % (Auto) 8.4 (4-12) % Eos % (Auto) 5 (1.0-5.0) % Baso % (Auto) 1 (0-2) % Neut # (Auto) 6.0 (1.6-8.3) # Lymph # (Auto) 0.8 (0.6-5.0) # [place] # (Auto) 0.7 (0.0-1.3) # Eos # (Auto) 0.4 (0.0-0.8) # Baso # (Auto) 0.0 (0.0-0.2) # Sodium (135-145) mmol/L Potassium (3.5-5.3) mmol/L Chloride (100-110) mmol/L Carbon Dioxide (21-32) mmol/L BUN (7-18) mg/dL Creatinine (0.70-1.30) mg/dL Est Cr Clr Drug Dosing mL/min Estimated GFR (MDRD) (>60) BUN/Creatinine Ratio (9-20) Glucose (80-116) mg/dL POC Glucose 206 H (80-116) mg/dL Calcium (8.6-10.2) mg/dL Total Bilirubin (0.1-1.3) mg/dL AST (5-25) IU/L ALT (12-36) U/L Alkaline Phosphatase (56-112) IU/L NT-Pro-B Natriuret Pep (<=450) pg/mL Total Protein (6.0-8.0) g/dL Albumin (3.2-4.6) g/dL Globulin g/dL Albumin/Globulin Ratio Vancomycin Trough 15.0 H (<0.8) ug/mL 07/20/18 07/20/18 Range/Units 06:25 06:25 WBC (4.5-12.0) X10-3/uL RBC (4.30-5.75) x10(6)uL Hgb (13.5-17.8) g/dL Hct (30.0-51.3) % MCV (80-96) fL MCH (27.7-33.6) pg MCHC (32.2-35.4) g/dL RDW (11.5-15.5) % Plt Count (125-369) X10(3)uL MPV (7.4-10.4) fL Neut % (Auto) (46-82) % Lymph % (Auto) (13-37) % [place] % (Auto) (4-12) % Eos % (Auto) (1.0-5.0) % Baso % (Auto) (0-2) % Neut # (Auto) (1.6-8.3) # Lymph # (Auto) (0.6-5.0) # [place] # (Auto) (0.0-1.3) # Eos # (Auto) (0.0-0.8) # Baso # (Auto) (0.0-0.2) # Sodium 143 (135-145) mmol/L Potassium 4.2 (3.5-5.3) mmol/L Chloride 107 (100-110) mmol/L Carbon Dioxide 29 (21-32) mmol/L BUN 19 H (7-18) mg/dL Creatinine 1.3 (0.70-1.30) mg/dL Est Cr Clr Drug Dosing 44.39 mL/min Estimated GFR (MDRD) 52 L (>60) BUN/Creatinine Ratio 14.6 (9-20) Glucose 101 (80-116) mg/dL POC Glucose (80-116) mg/dL Calcium 8.2 L (8.6-10.2) mg/dL Total Bilirubin 0.4 (0.1-1.3) mg/dL AST 13 (5-25) IU/L ALT 10 L (12-36) U/L Alkaline Phosphatase 26 L (56-112) IU/L NT-Pro-B Natriuret Pep 2155 H* (<=450) pg/mL Total Protein 6.2 (6.0-8.0) g/dL Albumin 1.8 L (3.2-4.6) g/dL Globulin 4.4 g/dL Albumin/Globulin Ratio 0.4 Vancomycin Trough (<0.8) ug/mL Alex Results Last 24 Hours: Microbiology 07/16/18 09:15 Aerobic Blood Culture - Preliminary Blood - Venous - Lab Draw NO GROWTH AFTER 3 DAYS Anaerobic Blood Culture - Preliminary NO GROWTH AFTER 3 DAYS Med Orders - Current: Current Medications Acetaminophen (Tylenol) 650 mg PO Q4H PRN PRN Reason: Pain/Fever Last Admin: 07/18/18 21:16 Dose: 650 mg Artificial Tears (Refresh Tears 0.5%) 0 ml EYEBOTH BIDMEALS [facility] Last Admin: 07/20/18 08:25 Dose: 1 drop Ascorbic Acid (Vitamin C) 500 mg PO WITHDINNER [facility] Last Admin: 07/19/18 17:43 Dose: 500 mg Bisacodyl (Dulcolax) 10 mg RECTAL DAILY PRN PRN Reason: Constipation Cyanocobalamin (Vitamin B12) 1,000 mcg IM Q30D [facility] Enoxaparin Sodium (Lovenox) 30 mg SUBCUT Q24H [facility] Last Admin: 07/19/18 16:48 Dose: 30 mg Furosemide (Lasix) 10 mg IVPUSH DAILY [facility] Last Admin: 07/20/18 08:26 Dose: 10 mg Glipizide (Glucotrol Xl) 10 mg PO DAILY [facility] Last Admin: 07/20/18 08:25 Dose: 10 mg Sodium Chloride (Normal Saline) 1,000 mls @ 100 mls/hr IV ASDIRECTED [facility] Last Admin: 07/17/18 04:05 Dose: 100 mls/hr Vancomycin HCl 1 gm/Vancomycin HCl 500 mg/ Sodium Chloride 500 mls @ 325 mls/ hr IV Q24H [facility] Last Admin: 07/19/18 10:37 Dose: 325 mls/hr Piperacillin Sod/Tazobactam (Sod 3.375 gm/ Sodium Chloride) 50 mls @ 100 mls/ hr IV Q6H [facility] Last Admin: 07/20/18 05:56 Dose: 100 mls/hr Levofloxacin/Dextrose 250 mg/ (Premix) 50 mls @ 50 mls/hr IV Q24H [facility] Last Admin: 07/20/18 08:18 Dose: 50 mls/hr Magnesium Hydroxide (Milk Of Magnesia) 30 ml PO DAILY PRN PRN Reason: Constipation Magnesium Oxide (Magnesium Oxide) 400 mg PO TID [facility] Last Admin: 07/20/18 08:27 Dose: 400 mg Metformin HCl (Glucophage) 1,000 mg PO BIDMEALS [facility] Last Admin: 07/20/18 08:24 Dose: 1,000 mg Multivitamins (Thera) 1 each PO DAILY [facility] Last Admin: 07/20/18 08:28 Dose: 1 each Nystatin (Nystatin Crm) 0 gm TOP BID [facility] Last Admin: 07/20/18 08:27 Dose: 1 applic Polysaccharide Iron Complex (Ferrex 150) 150 mg PO BIDMEALS [facility] Last Admin: 07/20/18 08:24 Dose: 150 mg Potassium Chloride (Klor-Con M20) 20 meq PO DAILY [facility] Last Admin: 07/20/18 08:25 Dose: 20 meq Saccharomyces Boulardii (Florastor) 250 mg PO BID [facility] Last Admin: 07/20/18 08:25 Dose: 250 mg Simvastatin (Zocor) 40 mg PO BEDTIME [facility] Last Admin: 07/19/18 20:18 Dose: 40 mg Sodium Chloride (Saline Flush) 10 ml FLUSH ASDIRECTED PRN PRN Reason: flush med Last Admin: 07/20/18 06:33 Dose: 10 ml Vancomycin HCl (Pharmacy To Dose - Vancomycin) 1 dose .XX ASDIRECTED [facility] Discontinued Medications Furosemide (Lasix) 10 mg IVPUSH NOW ONE Stop: 07/17/18 06:26 Last Admin: 07/17/18 06:44 Dose: 10 mg Magnesium Sulfate 2 gm/ Premix 50 mls @ 150 mls/hr IV ONETIME ONE Stop: 07/16/18 09:13 Last Admin: 07/16/18 09:12 Dose: 150 mls/hr Sodium Chloride (Normal Saline) 1,000 mls @ 999 mls/hr IV .BOLUS ONE Stop: 07/16/18 10:00 Last Admin: 07/16/18 08:56 Dose: 999 mls/hr Piperacillin Sod/Tazobactam (Sod 4.5 gm/ Sodium Chloride) 100 mls @ 200 mls/hr IV STAT [facility] Last Admin: 07/16/18 09:35 Dose: 200 mls/hr Vancomycin HCl 2 gm/ Sodium (Chloride) 500 mls @ 250 mls/hr IV ONETIME ONE Stop: 07/16/18 11:59 Last Admin: 07/16/18 10:12 Dose: 250 mls/hr Sodium Chloride (Normal Saline) 1,000 mls @ 100 mls/hr IV ASDIRECTED [facility] Last Infusion: 07/16/18 10:37 Dose: 10 mls/hr Metronidazole 500 mg/ Premix 100 mls @ 100 mls/hr IV Q8H [facility] Piperacillin Sod/Tazobactam (Sod 3.375 gm/ Sodium Chloride) 50 mls @ 100 mls/ hr IV Q6H [facility] Stop: 07/17/18 12:00 Last Admin: 07/17/18 10:05 Dose: 100 mls/hr Metronidazole 500 mg/ Premix 100 mls @ 100 mls/hr IV Q8H [facility] Last Admin: 07/19/18 05:46 Dose: 100 mls/hr Sodium Chloride (Normal Saline) 1,000 mls @ 75 mls/hr IV ASDIRECTED [facility] Last Admin: 07/16/18 15:26 Dose: 75 mls/hr Nystatin (Nystatin Crm) 0 gm TOP BID [facility] Last Admin: 07/19/18 09:31 Dose: 1 applic Senna/Docusate Sodium (Senna Plus) 1 tab PO BIDMEALS [facility] Last Admin: 07/19/18 10:25 Dose: Not Given Sodium Chloride (Normal Saline) 1,000 ml IV NOW STA Stop: 07/16/18 08:53 Last Admin: 07/16/18 09:14 Dose: Not Given - Exam Quality Assessment: Supplemental Oxygen General: Alert, Oriented HEENT: Pupils Equal Lungs: Crackles, Rales Cardiovascular: Regular Rate - Problem List & Annotations (1) Pneumonia SNOMED Code(s): 551233125 Code(s): J18.9 - PNEUMONIA, UNSPECIFIED ORGANISM Status: Acute Current Visit: Yes (2) Diarrhea SNOMED Code(s): 12043891 Code(s): R19.7 - DIARRHEA, UNSPECIFIED Status: Acute Current Visit: Yes Qualifiers: Diarrhea type: unspecified type Qualified Code(s): R19.7 - Diarrhea, unspecified (3) CHF (congestive heart failure) SNOMED Code(s): 91290481 Code(s): I50.9 - HEART FAILURE, UNSPECIFIED Status: Acute Current Visit: Yes Qualifiers: Heart failure chronicity: chronic (4) Decubitus skin ulcer SNOMED Code(s): 536205562 Code(s): L89.90 - PRESSURE ULCER OF UNSPECIFIED SITE, UNSPECIFIED STAGE Status: Acute Current Visit: Yes Qualifiers: Pressure injury location: sacral region (5) Diabetes type 2, controlled SNOMED Code(s): 27067916, 894821851 Code(s): E11.9 - TYPE 2 DIABETES MELLITUS WITHOUT COMPLICATIONS Status: Chronic Current Visit: Yes Qualifiers: Diabetes mellitus usp insulin use: without terminal clerk use (6) Hypomagnesemia SNOMED Code(s): 649631225 Code(s): E83.42 - HYPOMAGNESEMIA Status: Acute Current Visit: No - Problem List Review Problem List Initiated/Reviewed/Updated: Yes - My Orders Last 24 Hours: My Active Orders 07/19/18 08:40 [facility] [US] Routine 07/19/18 08:45 Levofloxacin/Dextrose 5%-Water [Levaquin in D5W 250 MG/50 ML] 250 mg Premix Bag 1 bag IV Q24H 07/19/18 09:00 Furosemide [Lasix] 10 mg IVPUSH DAILY 07/19/18 09:28 RT Incentive Spirometry [RC] Q4HWA 07/19/18 10:00 Saccharomyces Boulardii [Florastor] 250 mg PO BID 07/21/18 05:11 PRO B-TYPE NATRIUR PEPT,BNPPRO [CHEM] DAILY 07/22/18 05:11 PRO B-TYPE NATRIUR PEPT,BNPPRO [CHEM] DAILY 07/22/18 09:30 VANCOMYCIN TROUGH [CHEM] Timed - Plan Plan:: Will prob switch him to oral antibiotics tomorrow.DC to N/home Sunday
[2018-07-20] MEDS: Vancomycin 1 GM, Vancomycin 500 MG in Sodium Chloride 0.9% 500 ML IV SCH (10:56)
[2018-07-20] MEDS: Enoxaparin 30 MG/0.3 ML Syringe SUBCUT SCH (15:54)
[2018-07-20] MEDS: Ascorbic Acid 500 MG Tab PO SCH (17:37)
[2018-07-20] MEDS: Simvastatin 40 MG Tab PO SCH (20:12)
[2018-07-21] MEDS: Sodium Chloride 0.9% 10 ML Syringe FLUSH PRN ×2 (00:11→05:47)
[2018-07-21] MEDS: Piperacillin/Tazobactam 3.375 GM in Sodium Chloride 0.9% 50 ML IV SCH (05:13)
[2018-07-21] MEDS: Iron Polysaccharides Complex 150 MG Cap PO SCH ×2 (07:26→17:39)
[2018-07-21] MEDS: metFORMIN 1,000 MG Tab PO SCH ×2 (07:27→17:39)
[2018-07-21] MEDS: Carboxymethylcellulose Sodium 0.5% Ophth Soln 15 ML Bottle EYEBOTH SCH ×2 (07:27→17:38)
[2018-07-21] MEDS: Levofloxacin/Dextrose 5%-Water 250 MG in Premix Bag 1 BAG IV SCH (07:48)
--- NOTE | 2018-07-21 08:22 | PCM.PN ---
- General Info Date of Service: 07/21/18 Subjective Update: Mr. Crowder is doing much better today. Is down to 1 L of oxygenation. He denies fever or cough. Is eating well. Functional Status: Reports: Tolerating Diet, Incentive Spirometry - Review of Systems Gastrointestinal: Reports: No Symptoms Genitourinary: Reports: No Symptoms Musculoskeletal: Reports: No Symptoms - Patient Data Vitals - Most Recent: Last Vital Signs Temp 98.8 F 07/21/18 04:00 Pulse 80 07/21/18 04:00 Resp 16 07/21/18 04:00 BP 103/56 L 07/21/18 04:00 Pulse Ox 96 07/21/18 04:00 Weight - Most Recent: 105.885 kg I&O - Last 24 Hours: Intake & Output 07/20/18 07/21/18 07/21/18 22:59 06:59 14:59 Intake Total 250 200 Output Total 1 Balance 250 199 Lab Results Last 24 Hours: Laboratory Results - last 24 hr 07/20/18 07/21/18 Range/Units 06:02 06:25 POC Glucose 102 D (80-116) mg/dL NT-Pro-B Natriuret Pep 3107 H* (<=450) pg/mL Alex Results Last 24 Hours: Microbiology 07/16/18 09:15 Aerobic Blood Culture - Preliminary Blood - Venous - Lab Draw NO GROWTH AFTER 4 DAYS Anaerobic Blood Culture - Preliminary NO GROWTH AFTER 4 DAYS Med Orders - Current: Current Medications Acetaminophen (Tylenol) 650 mg PO Q4H PRN PRN Reason: Pain/Fever Last Admin: 07/18/18 21:16 Dose: 650 mg Amoxicillin/Clavulanate Potassium (Augmentin 875 Mg/125 Mg) 1 tab PO Q12HR [facility] Artificial Tears (Refresh Tears 0.5%) 0 ml EYEBOTH BIDMEALS [facility] Last Admin: 07/21/18 07:27 Dose: 1 drop Ascorbic Acid (Vitamin C) 500 mg PO WITHDINNER [facility] Last Admin: 07/20/18 17:37 Dose: 500 mg Bisacodyl (Dulcolax) 10 mg RECTAL DAILY PRN PRN Reason: Constipation Cyanocobalamin (Vitamin B12) 1,000 mcg IM Q30D [facility] Enoxaparin Sodium (Lovenox) 30 mg SUBCUT Q24H [facility] Last Admin: 07/20/18 15:54 Dose: 30 mg Glipizide (Glucotrol Xl) 10 mg PO DAILY [facility] Last Admin: 07/20/18 08:25 Dose: 10 mg Levofloxacin (Levaquin) 250 mg PO Q24H [facility] Magnesium Hydroxide (Milk Of Magnesia) 30 ml PO DAILY PRN PRN Reason: Constipation Magnesium Oxide (Magnesium Oxide) 400 mg PO TID [facility] Last Admin: 07/20/18 20:12 Dose: 400 mg Metformin HCl (Glucophage) 1,000 mg PO BIDMEALS [facility] Last Admin: 07/21/18 07:27 Dose: 1,000 mg Multivitamins (Thera) 1 each PO DAILY [facility] Last Admin: 07/20/18 08:28 Dose: 1 each Nystatin (Nystatin Crm) 0 gm TOP BID [facility] Last Admin: 07/20/18 20:12 Dose: 1 applic Polysaccharide Iron Complex (Ferrex 150) 150 mg PO BIDMEALS [facility] Last Admin: 07/21/18 07:26 Dose: 150 mg Potassium Chloride (Klor-Con M20) 20 meq PO DAILY [facility] Last Admin: 07/20/18 08:25 Dose: 20 meq Saccharomyces Boulardii (Florastor) 250 mg PO BID [facility] Last Admin: 07/20/18 20:12 Dose: 250 mg Simvastatin (Zocor) 40 mg PO BEDTIME [facility] Last Admin: 07/20/18 20:12 Dose: 40 mg Sodium Chloride (Saline Flush) 10 ml FLUSH ASDIRECTED PRN PRN Reason: flush med Last Admin: 07/21/18 05:47 Dose: 10 ml Vancomycin HCl (Pharmacy To Dose - Vancomycin) 1 dose .XX ASDIRECTED [facility] Discontinued Medications Furosemide (Lasix) 10 mg IVPUSH NOW ONE Stop: 07/17/18 06:26 Last Admin: 07/17/18 06:44 Dose: 10 mg Furosemide (Lasix) 10 mg IVPUSH DAILY [facility] Last Admin: 07/20/18 08:26 Dose: 10 mg Magnesium Sulfate 2 gm/ Premix 50 mls @ 150 mls/hr IV ONETIME ONE Stop: 07/16/18 09:13 Last Admin: 07/16/18 09:12 Dose: 150 mls/hr Sodium Chloride (Normal Saline) 1,000 mls @ 999 mls/hr IV .BOLUS ONE Stop: 07/16/18 10:00 Last Admin: 07/16/18 08:56 Dose: 999 mls/hr Piperacillin Sod/Tazobactam (Sod 4.5 gm/ Sodium Chloride) 100 mls @ 200 mls/hr IV STAT [facility] Last Admin: 07/16/18 09:35 Dose: 200 mls/hr Vancomycin HCl 2 gm/ Sodium (Chloride) 500 mls @ 250 mls/hr IV ONETIME ONE Stop: 07/16/18 11:59 Last Admin: 07/16/18 10:12 Dose: 250 mls/hr Sodium Chloride (Normal Saline) 1,000 mls @ 100 mls/hr IV ASDIRECTED [facility] Last Infusion: 07/16/18 10:37 Dose: 10 mls/hr Metronidazole 500 mg/ Premix 100 mls @ 100 mls/hr IV Q8H [facility] Piperacillin Sod/Tazobactam (Sod 3.375 gm/ Sodium Chloride) 50 mls @ 100 mls/ hr IV Q6H [facility] Stop: 07/17/18 12:00 Last Admin: 07/17/18 10:05 Dose: 100 mls/hr Metronidazole 500 mg/ Premix 100 mls @ 100 mls/hr IV Q8H [facility] Last Admin: 07/19/18 05:46 Dose: 100 mls/hr Sodium Chloride (Normal Saline) 1,000 mls @ 75 mls/hr IV ASDIRECTED [facility] Last Admin: 07/16/18 15:26 Dose: 75 mls/hr Sodium Chloride (Normal Saline) 1,000 mls @ 100 mls/hr IV ASDIRECTED [facility] Last Admin: 07/17/18 04:05 Dose: 100 mls/hr Vancomycin HCl 1 gm/Vancomycin HCl 500 mg/ Sodium Chloride 500 mls @ 325 mls/ hr IV Q24H [facility] Last Admin: 07/20/18 10:56 Dose: 325 mls/hr Piperacillin Sod/Tazobactam (Sod 3.375 gm/ Sodium Chloride) 50 mls @ 100 mls/ hr IV Q6H [facility] Last Admin: 07/21/18 05:13 Dose: 100 mls/hr Levofloxacin/Dextrose 250 mg/ (Premix) 50 mls @ 50 mls/hr IV Q24H [facility] Last Admin: 07/21/18 07:48 Dose: 50 mls/hr Nystatin (Nystatin Crm) 0 gm TOP BID [facility] Last Admin: 07/19/18 09:31 Dose: 1 applic Senna/Docusate Sodium (Senna Plus) 1 tab PO BIDMEALS [facility] Last Admin: 07/19/18 10:25 Dose: Not Given Sodium Chloride (Normal Saline) 1,000 ml IV NOW STA Stop: 07/16/18 08:53 Last Admin: 07/16/18 09:14 Dose: Not Given - Exam Quality Assessment: Supplemental Oxygen General: Alert HEENT: Pupils Equal Neck: Supple Lungs: Crackles Cardiovascular: Regular Rate - Problem List & Annotations (1) Pneumonia SNOMED Code(s): 372391275 Code(s): J18.9 - PNEUMONIA, UNSPECIFIED ORGANISM Status: Acute Current Visit: Yes (2) Diarrhea SNOMED Code(s): 76350209 Code(s): R19.7 - DIARRHEA, UNSPECIFIED Status: Acute Current Visit: Yes Qualifiers: Diarrhea type: unspecified type Qualified Code(s): R19.7 - Diarrhea, unspecified (3) CHF (congestive heart failure) SNOMED Code(s): 22788342 Code(s): I50.9 - HEART FAILURE, UNSPECIFIED Status: Acute Current Visit: Yes Qualifiers: Heart failure chronicity: chronic (4) Decubitus skin ulcer SNOMED Code(s): 756229971 Code(s): L89.90 - PRESSURE ULCER OF UNSPECIFIED SITE, UNSPECIFIED STAGE Status: Acute Current Visit: Yes Qualifiers: Pressure injury location: sacral region (5) Diabetes type 2, controlled SNOMED Code(s): 56839603, 815254852 Code(s): E11.9 - TYPE 2 DIABETES MELLITUS WITHOUT COMPLICATIONS Status: Chronic Current Visit: Yes Qualifiers: Diabetes mellitus production control coordinating clerk insulin use: without nursing home use (6) Hypomagnesemia SNOMED Code(s): 203012140 Code(s): E83.42 - HYPOMAGNESEMIA Status: Acute Current Visit: No - Problem List Review Problem List Initiated/Reviewed/Updated: Yes - My Orders Last 24 Hours: My Active Orders 07/20/18 17:30 Oxygen Therapy [RC] ASDIRECTED 07/21/18 08:30 Amoxicillin/Clavulanate K [Augmentin 875 MG/125 MG] 1 tab PO Q12HR levoFLOXacin [Levaquin] 250 mg PO Q24H 07/21/18 09:00 Bumetanide [Bumex] 1 mg PO DAILY Spironolactone [Aldactone] 25 mg PO DAILY 07/22/18 05:11 PRO B-TYPE NATRIUR PEPT,BNPPRO [CHEM] DAILY 07/22/18 09:30 VANCOMYCIN TROUGH [CHEM] Timed - Plan Plan:: DC IV antibiotics. Start oral Levaquin and Augmentin. Also restart his home dose of spironolactone, and restart Bumex at 1 mg a day. Will DC to [facility] tomorrow
[2018-07-21] MEDS: Saccharomyces Boulardii (Probiotic) 250 MG Cap PO SCH ×2 (09:46→20:47)
[2018-07-21] MEDS: Amoxicillin/Clavulanate K 875-125 MG Tab PO SCH ×2 (09:46→20:48)
[2018-07-21] MEDS: Spironolactone 25 MG Tab PO SCH (09:46)
[2018-07-21] MEDS: Magnesium Oxide 400 MG Tab PO SCH ×3 (09:46→20:47)
[2018-07-21] MEDS: Potassium Chloride 20 MEQ Tab.ER PO SCH (09:46)
[2018-07-21] MEDS: glipiZIDE 10 MG Tab.ER PO SCH (09:47)
[2018-07-21] MEDS: Multivitamins,Therapeutic Tab PO SCH (09:47)
[2018-07-21] MEDS: Nystatin Crm 30 GM Tube TOP SCH ×2 (09:47→20:47)
[2018-07-21] MEDS ORDERED: Levofloxacin 250 MG Tab PO SCH (10:00)
[2018-07-21] MEDS: Bumetanide 1 MG Tab PO SCH (12:02)
[2018-07-21] MEDS: Enoxaparin 30 MG/0.3 ML Syringe SUBCUT SCH (16:09)
[2018-07-21] MEDS: Ascorbic Acid 500 MG Tab PO SCH (17:38)
[2018-07-21] MEDS: Simvastatin 40 MG Tab PO SCH (20:47)
--- NOTE | 2018-07-22 08:09 | PCM.PN ---
- General Info Date of Service: 07/22/18 Subjective Update: Slept well. No new complaints Functional Status: Reports: Pain Controlled - Review of Systems General: Reports: No Symptoms HEENT: Reports: No Symptoms Pulmonary: Reports: No Symptoms Cardiovascular: Reports: No Symptoms Gastrointestinal: Reports: No Symptoms - Patient Data Vitals - Most Recent: Last Vital Signs Temp 98 F 07/22/18 04:00 Pulse 81 07/22/18 04:00 Resp 16 07/22/18 04:00 BP 122/68 07/22/18 04:00 Pulse Ox 94 L 07/22/18 04:00 Weight - Most Recent: 105.885 kg Lab Results Last 24 Hours: Laboratory Results - last 24 hr 07/20/18 07/21/18 07/21/18 Range/Units 17:09 06:08 17:36 POC Glucose 146 H 139 H 175 H (80-116) mg/dL NT-Pro-B Natriuret Pep (<=450) pg/mL 07/22/18 Range/Units 06:30 POC Glucose (80-116) mg/dL NT-Pro-B Natriuret Pep 2921 H* (<=450) pg/mL Alex Results Last 24 Hours: Microbiology 07/16/18 09:15 Aerobic Blood Culture - Final Blood - Venous - Lab Draw NO GROWTH AFTER 5 DAYS Anaerobic Blood Culture - Final NO GROWTH AFTER 5 DAYS Med Orders - Current: Current Medications Acetaminophen (Tylenol) 650 mg PO Q4H PRN PRN Reason: Pain/Fever Last Admin: 07/18/18 21:16 Dose: 650 mg Amoxicillin/Clavulanate Potassium (Augmentin 875 Mg/125 Mg) 1 tab PO BID REPLACED BY [facility] Last Admin: 07/21/18 20:48 Dose: 1 tab Artificial Tears (Refresh Tears 0.5%) 0 ml EYEBOTH BIDMEALS REPLACED BY [facility] Last Admin: 07/21/18 17:38 Dose: 1 drop Ascorbic Acid (Vitamin C) 500 mg PO WITHDINNER REPLACED BY [facility] Last Admin: 07/21/18 17:38 Dose: 500 mg Bisacodyl (Dulcolax) 10 mg RECTAL DAILY PRN PRN Reason: Constipation Bumetanide (Bumex) 1 mg PO DAILY REPLACED BY [facility] Last Admin: 07/21/18 12:02 Dose: 1 mg Cyanocobalamin (Vitamin B12) 1,000 mcg IM Q30D REPLACED BY [facility] Enoxaparin Sodium (Lovenox) 30 mg SUBCUT Q24H REPLACED BY [facility] Last Admin: 07/21/18 16:09 Dose: 30 mg Glipizide (Glucotrol Xl) 10 mg PO DAILY REPLACED BY [facility] Last Admin: 07/21/18 09:47 Dose: 10 mg Levofloxacin (Levaquin) 250 mg PO DAILY@1000 REPLACED BY [facility] Magnesium Hydroxide (Milk Of Magnesia) 30 ml PO DAILY PRN PRN Reason: Constipation Magnesium Oxide (Magnesium Oxide) 400 mg PO TID REPLACED BY [facility] Last Admin: 07/21/18 20:47 Dose: 400 mg Metformin HCl (Glucophage) 1,000 mg PO BIDMEALS REPLACED BY [facility] Last Admin: 07/21/18 17:39 Dose: 1,000 mg Multivitamins (Thera) 1 each PO DAILY REPLACED BY [facility] Last Admin: 07/21/18 09:47 Dose: 1 each Nystatin (Nystatin Crm) 0 gm TOP BID REPLACED BY [facility] Last Admin: 07/21/18 20:47 Dose: 1 applic Polysaccharide Iron Complex (Ferrex 150) 150 mg PO BIDMEALS REPLACED BY [facility] Last Admin: 07/21/18 17:39 Dose: 150 mg Potassium Chloride (Klor-Con M20) 20 meq PO DAILY REPLACED BY [facility] Last Admin: 07/21/18 09:46 Dose: 20 meq Saccharomyces Boulardii (Florastor) 250 mg PO BID REPLACED BY [facility] Last Admin: 07/21/18 20:47 Dose: 250 mg Simvastatin (Zocor) 40 mg PO BEDTIME REPLACED BY [facility] Last Admin: 07/21/18 20:47 Dose: 40 mg Sodium Chloride (Saline Flush) 10 ml FLUSH ASDIRECTED PRN PRN Reason: flush med Last Admin: 07/21/18 05:47 Dose: 10 ml Spironolactone (Aldactone) 25 mg PO DAILY REPLACED BY [facility] Last Admin: 07/21/18 09:46 Dose: 25 mg Discontinued Medications Furosemide (Lasix) 10 mg IVPUSH NOW ONE Stop: 07/17/18 06:26 Last Admin: 07/17/18 06:44 Dose: 10 mg Furosemide (Lasix) 10 mg IVPUSH DAILY REPLACED BY [facility] Last Admin: 07/20/18 08:26 Dose: 10 mg Magnesium Sulfate 2 gm/ Premix 50 mls @ 150 mls/hr IV ONETIME ONE Stop: 07/16/18 09:13 Last Admin: 07/16/18 09:12 Dose: 150 mls/hr Sodium Chloride (Normal Saline) 1,000 mls @ 999 mls/hr IV .BOLUS ONE Stop: 07/16/18 10:00 Last Admin: 07/16/18 08:56 Dose: 999 mls/hr Piperacillin Sod/Tazobactam (Sod 4.5 gm/ Sodium Chloride) 100 mls @ 200 mls/hr IV STAT REPLACED BY [facility] Last Admin: 07/16/18 09:35 Dose: 200 mls/hr Vancomycin HCl 2 gm/ Sodium (Chloride) 500 mls @ 250 mls/hr IV ONETIME ONE Stop: 07/16/18 11:59 Last Admin: 07/16/18 10:12 Dose: 250 mls/hr Sodium Chloride (Normal Saline) 1,000 mls @ 100 mls/hr IV ASDIRECTED REPLACED BY [facility] Last Infusion: 07/16/18 10:37 Dose: 10 mls/hr Metronidazole 500 mg/ Premix 100 mls @ 100 mls/hr IV Q8H REPLACED BY [facility] Piperacillin Sod/Tazobactam (Sod 3.375 gm/ Sodium Chloride) 50 mls @ 100 mls/ hr IV Q6H REPLACED BY [facility] Stop: 07/17/18 12:00 Last Admin: 07/17/18 10:05 Dose: 100 mls/hr Metronidazole 500 mg/ Premix 100 mls @ 100 mls/hr IV Q8H REPLACED BY [facility] Last Admin: 07/19/18 05:46 Dose: 100 mls/hr Sodium Chloride (Normal Saline) 1,000 mls @ 75 mls/hr IV ASDIRECTED REPLACED BY [facility] Last Admin: 07/16/18 15:26 Dose: 75 mls/hr Sodium Chloride (Normal Saline) 1,000 mls @ 100 mls/hr IV ASDIRECTED REPLACED BY [facility] Last Admin: 07/17/18 04:05 Dose: 100 mls/hr Vancomycin HCl 1 gm/Vancomycin HCl 500 mg/ Sodium Chloride 500 mls @ 325 mls/ hr IV Q24H REPLACED BY [facility] Last Admin: 07/20/18 10:56 Dose: 325 mls/hr Piperacillin Sod/Tazobactam (Sod 3.375 gm/ Sodium Chloride) 50 mls @ 100 mls/ hr IV Q6H REPLACED BY [facility] Last Admin: 07/21/18 05:13 Dose: 100 mls/hr Levofloxacin/Dextrose 250 mg/ (Premix) 50 mls @ 50 mls/hr IV Q24H REPLACED BY [facility] Last Admin: 07/21/18 07:48 Dose: 50 mls/hr Levofloxacin (Levaquin) 250 mg PO DAILY@1000 [facility]AR[facility] Last Admin: 07/21/18 15:41 Dose: Not Given Nystatin (Nystatin Crm) 0 gm TOP BID REPLACED BY [facility] Last Admin: 07/19/18 09:31 Dose: 1 applic Senna/Docusate Sodium (Senna Plus) 1 tab PO BIDMEALS REPLACED BY [facility] Last Admin: 07/19/18 10:25 Dose: Not Given Sodium Chloride (Normal Saline) 1,000 ml IV NOW STA Stop: 07/16/18 08:53 Last Admin: 07/16/18 09:14 Dose: Not Given Vancomycin HCl (Pharmacy To Dose - Vancomycin) 1 dose .XX ASDIRECTED REPLACED BY [facility] - Exam Quality Assessment: Supplemental Oxygen General: Alert HEENT: Pupils Equal Neck: Supple Lungs: Crackles Cardiovascular: Regular Rate - Problem List & Annotations (1) Pneumonia SNOMED Code(s): 167615561 Code(s): J18.9 - PNEUMONIA, UNSPECIFIED ORGANISM Status: Acute Current Visit: Yes (2) Diarrhea SNOMED Code(s): 09307688 Code(s): R19.7 - DIARRHEA, UNSPECIFIED Status: Acute Current Visit: Yes Qualifiers: Diarrhea type: unspecified type Qualified Code(s): R19.7 - Diarrhea, unspecified (3) CHF (congestive heart failure) SNOMED Code(s): 84440535 Code(s): I50.9 - HEART FAILURE, UNSPECIFIED Status: Acute Current Visit: Yes Qualifiers: Heart failure chronicity: chronic (4) Decubitus skin ulcer SNOMED Code(s): 435652471 Code(s): L89.90 - PRESSURE ULCER OF UNSPECIFIED SITE, UNSPECIFIED STAGE Status: Acute Current Visit: Yes Qualifiers: Pressure injury location: sacral region (5) Diabetes type 2, controlled SNOMED Code(s): 12571632, 730340480 Code(s): E11.9 - TYPE 2 DIABETES MELLITUS WITHOUT COMPLICATIONS Status: Chronic Current Visit: Yes Qualifiers: Diabetes mellitus social media senior associate insulin use: without usp use (6) Hypomagnesemia SNOMED Code(s): 534046950 Code(s): E83.42 - HYPOMAGNESEMIA Status: Acute Current Visit: No - Problem List Review Problem List Initiated/Reviewed/Updated: Yes - My Orders Last 24 Hours: My Active Orders 07/21/18 09:00 Amoxicillin/Clavulanate K [Augmentin 875 MG/125 MG] 1 tab PO BID Bumetanide [Bumex] 1 mg PO DAILY Spironolactone [Aldactone] 25 mg PO DAILY 07/22/18 10:00 levoFLOXacin [Levaquin] 250 mg PO DAILY@1000 - Plan Plan:: May DC to [facility] today
[2018-07-22] MEDS: Nystatin Crm 30 GM Tube TOP SCH (09:28)
[2018-07-22] MEDS: Iron Polysaccharides Complex 150 MG Cap PO SCH (09:33)
[2018-07-22] MEDS: metFORMIN 1,000 MG Tab PO SCH (09:33)
[2018-07-22] MEDS: Bumetanide 1 MG Tab PO SCH (09:34)
[2018-07-22] MEDS: Carboxymethylcellulose Sodium 0.5% Ophth Soln 15 ML Bottle EYEBOTH SCH (09:34)
[2018-07-22] MEDS: Saccharomyces Boulardii (Probiotic) 250 MG Cap PO SCH (09:34)
[2018-07-22] MEDS: Amoxicillin/Clavulanate K 875-125 MG Tab PO SCH (09:34)
[2018-07-22] MEDS: Spironolactone 25 MG Tab PO SCH (09:34)
[2018-07-22] MEDS: glipiZIDE 10 MG Tab.ER PO SCH (09:35)
[2018-07-22] MEDS: Multivitamins,Therapeutic Tab PO SCH (09:35)
[2018-07-22] MEDS: Potassium Chloride 20 MEQ Tab.ER PO SCH (09:35)
[2018-07-22] MEDS: Magnesium Oxide 400 MG Tab PO SCH (09:35)
[2018-07-22] MEDS ORDERED: Levofloxacin 250 MG Tab PO SCH (10:00)
[2018-07-22 13:34] VITALS: BP 108/62
--- NOTE | 2018-07-23 04:53 | DISCH ---
DISCHARGE DATE: 07/22/2018 REASON FOR ADMISSION: 1. Pneumonia. 2. Congestive heart failure. 3. Acute kidney injury. 4. Ventricular tachycardia, paroxysmal. 5. Palliative care patient. 6. Type 2 diabetes. 7. Iron-deficiency anemia. 8. Decubitus ulcers of the heels, methicillin-resistant Staphylococcus aureus. DISCHARGE DIAGNOSES: 1. Pneumonia. 2. Congestive heart failure. 3. Acute kidney injury. 4. Ventricular tachycardia, paroxysmal. 5. Palliative care patient. 6. Type 2 diabetes. 7. Iron-deficiency anemia. 8. Decubitus ulcers of the heels, methicillin-resistant Staphylococcus aureus. HOSPITAL COURSE: This is an 88-year-old, who was admitted on the by Dr. Feliz for pneumonia. He also had some decubitus ulcers of the heels that was found to be infected with MRSA. He had x-rays that could not specifically rule out osteomyelitis. Dr. Munroe was consulted. The patient did well respiratory [place]. He was able to be weaned to 1 L of oxygenation and his white cell count was normal. His creatinine was 1.3, and his blood pressure improved significantly. His hemoglobin remained stable at about 8.1. Because of low blood pressure, Aldactone was stopped initially and so was the Bumex. The day before discharge, I did start him on Aldactone, and only half the dose of Bumex. He was treated with triple therapy with vancomycin, Zosyn, and Flagyl. Flagyl was discontinued 2 days prior and this was switched to Levaquin. On discharge, he will go home on Levaquin and Augmentin. So, follow up at the senior living at [facility] within the next 1 week. DISCHARGE MEDICATIONS: 1. Augmentin 875 mg b.i.d. 2. Bactrim DS (to cover for MRSA) 1 tablet b.i.d. for 10 days. 3. Aldactone 25 mg once a day. 4. Bumex 1 mg once a day. 5. Bisacodyl p.r.n. 6. Acetaminophen 650 mg q.6 hours p.r.n. 7. Vitamin B12 of 1000 mcg every 30 days. 8. Glipizide 10 mg a day. 9. Iron polysaccharide complex 150 mg b.i.d. 10.Magnesium hydroxide p.r.n. 11.Metformin 1000 mg b.i.d. 12.One multivitamin a day. 13.Nystatin cream p.r.n. 14.Potassium chloride 20 mEq a day. 15.Zocor 40 mg at bedtime. Please note that I spent more than 35 minutes in the discharge of the patient. /[id number] THERON/PARI
[2018-08-11] MEDS ORDERED: Cyanocobalamin (Vitamin B12) 1,000 MCG/ML SDV IM SCH (09:00)
== END 2018-07-22 10:05 | DRG 194 ==
LOC: FB.ED 08:47 → FB.MS 12:20
PROVIDERS: ADMIT Family Medicine; ATTEND Family Medicine
PROC: 0HDNXZZ Extraction of Left Foot Skin, External Approach (ICD-10-PCS; principal; 2018-07-16)
PROC: 0HDMXZZ Extraction of Right Foot Skin, External Approach (ICD-10-PCS; 2018-07-16)
DX: J18.9 Pneumonia, unspecified organism (principal); N17.9 Acute kidney failure, unspecified; I47.2 Ventricular tachycardia; Z51.5 Encounter for palliative care; Z66 Do not resuscitate; I11.0 Hypertensive heart disease with heart failure; I50.9 Heart failure, unspecified; E11.9 Type 2 diabetes mellitus without complications; L89.629 Pressure ulcer of left heel, unspecified stage; L89.619 Pressure ulcer of right heel, unspecified stage; D50.9 Iron deficiency anemia, unspecified; R53.1 Weakness; R63.0 Anorexia; R05 Cough; B95.62 Methicillin resistant Staphylococcus aureus infection as the cause of diseases classified elsewhere; Z99.81 Dependence on supplemental oxygen; E86.0 Dehydration; Z79.84 Long term (current) use of oral hypoglycemic drugs; E50.9 Vitamin A deficiency, unspecified; Z79.2 Long term (current) use of antibiotics; R19.7 Diarrhea, unspecified; Z86.14 Personal history of Methicillin resistant Staphylococcus aureus infection; E78.00 Pure hypercholesterolemia, unspecified; E53.8 Deficiency of other specified B group vitamins; M19.90 Unspecified osteoarthritis, unspecified site; Z86.010 Personal history of colon polyps
CPT/HCPCS: 36415; 71045; 80053; 81001; 82803; 82962; 83605; 83735; 83880; 84484; 85025; 85610; 86140; 87040; 93005 ×3; 96365; 96366; 96367; 99285; J2543; J3370; J3475; J7030 ×3; J7040; 73650-50; 80202; 85027; 87324; 93010; 93308; 94150; A9270-GY; J1650; J1940; J1956; J3490; J7050